=== PATIENT | female | born 1935 | race Caucasian/White ===

== ENCOUNTER 2016-11-24 20:58 | Observation (INO) | payer MEDICARE, BC ==
[~2016-11-24] VITALS: Ht 154.9 cm; Wt 107.0 kg
[2016-11-24 21:02] VITALS: BP 146/86; PULSE 108; RESP 16; TEMP 98.9; O2SAT 94
--- NOTE | 2016-11-24 21:23 | PD ---
HPI Chief Complaint: GI Complaint Time Seen by Provider: 21:09 Travel History International Travel<30 days: No Contact w/Intl Traveler<30days: No Traveled to known affect area: No History of Present Illness HPI The patient is an 81-year-old female that was sent from [facility] because of anemia for blood transfusion. Apparently, she had blood work which showed a hemoglobin of 8.7 on the 30th of last month. She has a long history of anemia and when she was in [place] she got iron shots as well as B-12 shots. Now she takes only oral B-12. She has not fainted but has been feeling weak for the past few weeks. She denies any melanotic or bloody stools. She denies any fever, nausea, vomiting, diarrhea or abdominal pain. [facility] Past Medical History Diabetes: Yes ?: Not Past Surgical History Hysterectomy: Yes Social History Tobacco Use: No Allergies-Medications (Allergen,Severity, Reaction): Coded Allergies: Lotrel (Verified Allergy, Unknown, SWELLING, 11/24/16) Reported Meds & Prescriptions Reported Meds & Active Scripts Active Reported Metoprolol Tartrate 25 Mg Tab 25 Mg PO DAILY Review of Systems Except as stated in HPI: all other systems reviewed are Neg Physical Exam Narrative GENERAL: The patient is alert, oriented 3 in no apparent distress. Her vital signs show heart rate of 108 with blood pressure 146/86. Oximetry is 94%. SKIN: Focused skin assessment warm/dry. HEAD: Atraumatic. Normocephalic. EYES: Pupils equal and round. No scleral icterus. No injection or drainage. ENT: No nasal bleeding or discharge. Mucous membranes pink and moist. NECK: Trachea midline. No JVD. CARDIOVASCULAR: Regular rate and rhythm. No murmur appreciated. RESPIRATORY: No accessory muscle use. Clear to auscultation. Breath sounds equal bilaterally. GASTROINTESTINAL: Abdomen soft, non-tender, nondistended. Hepatic and splenic margins not palpable. No guarding or rebound is present. MUSCULOSKELETAL: No obvious deformities. No clubbing. No cyanosis. No edema. NEUROLOGICAL: Awake and alert. No obvious cranial nerve deficits. Motor grossly within normal limits. Normal speech. PSYCHIATRIC: Appropriate mood and affect; insight and judgment normal. RECTAL EXAM: No masses or tenderness, only a tiny bit of stool was recovered from the rectum and it was trace guaiac positive. Data Data Last Documented VS Vital Signs Date Time Temp Pulse Resp B/P Pulse Ox O2 Delivery O2 Flow Rate FiO2 11/24/16 21:40 103 20 148/69 96 Room Air 11/24/16 21:02 98.9 Orders Complete Blood Count With Diff (11/24/16 21:18) Comprehensive Metabolic Panel (11/24/16 21:18) Type And Screen (11/24/16 21:18) Ecg Monitoring (11/24/16 21:18) Iv Access Insert/Monitor (11/24/16 21:18) Oximetry (11/24/16 21:18) Sodium Chloride 0.9% Flush (Ns Flush) (11/24/16 21:30) Red Blood Cells (Rbc) (11/24/16 22:09) Blood Product Administration .UPON TRANSFUSION (11/24/16 22:09) Sodium Chlor 0.9% 250 Ml Inj (Ns 250 Ml (11/24/16 22:15) Labs Laboratory Tests Test 11/24/16 21:30 White Blood Count 14.6 TH/MM3 Red Blood Count 2.32 MIL/MM3 Hemoglobin 6.2 GM/DL Hematocrit 19.2 % Mean Corpuscular Volume 82.9 FL Mean Corpuscular Hemoglobin 26.8 PG Mean Corpuscular Hemoglobin 32.4 % Concent Red Cell Distribution Width 17.1 % Platelet Count 476 TH/MM3 Mean Platelet Volume 7.6 FL Neutrophils (%) (Auto) 70.9 % Lymphocytes (%) (Auto) 12.8 % Monocytes (%) (Auto) 9.8 % Eosinophils (%) (Auto) 1.9 % Basophils (%) (Auto) 4.6 % Neutrophils # (Auto) 10.3 TH/MM3 Lymphocytes # (Auto) 1.9 TH/MM3 Monocytes # (Auto) 1.4 TH/MM3 Eosinophils # (Auto) 0.3 TH/MM3 Basophils # (Auto) 0.7 TH/MM3 CBC Comment DIFF FINAL Differential Comment Sodium Level 144 MEQ/L Potassium Level 4.6 MEQ/L Chloride Level 109 MEQ/L Carbon Dioxide Level 22.6 MEQ/L Anion Gap 12 MEQ/L Blood Urea Nitrogen 63 MG/DL Creatinine 2.00 MG/DL Estimat Glomerular Filtration 24 ML/MIN Rate Random Glucose 113 MG/DL Calcium Level 9.2 MG/DL Total Bilirubin 0.2 MG/DL Aspartate Amino Transf 31 U/L (AST/SGOT) Alanine Aminotransferase 22 U/L (ALT/SGPT) Alkaline Phosphatase 76 U/L Total Protein 7.0 GM/DL Albumin 3.0 GM/DL MDM Medical Decision Making Medical Screen Exam Complete: Yes Emergency Medical Condition: Yes Medical Record Reviewed: Yes Interpretation(s) The CBC shows a white count of 14,600 with a hemoglobin of 6.2 and hematocrit of 19.2. The platelet count is 476,000. The complete metabolic profile shows a BUN of 63, creatinine 2.0, GFR of 24 with albumin 3.0 but is otherwise unremarkable. Differential Diagnosis Anemia, iron deficiency anemia, acute blood loss, chronic anemia, B-12 deficiency Narrative Course The patient has anemia and needs a transfusion. We will give her 2 units of packed cells. The patient will be admitted to Dr. Patel for 23 hour observation. The blood indices do not give us a clue whether this is iron deficiency her B-12 deficiency. The rectal exam showed only trace guaiac positive on a tiny bit of stool that was in the rectum. She denies black or bloody stools. Impression: Chronic anemia Diagnosis Primary Impression: Anemia Admitting Information Admitting Physician Requests: Observation Francisco Ramirez MD Nov 24, 2016 21:22
[2016-11-24 21:30] VITALS: O2SAT 96
[2016-11-24] MEDS ORDERED: SODIUM CHLORIDE 0.9% FLUSH 10 ML FLUSH IVF PRN (21:30)
[2016-11-24 21:40] VITALS: BP 148/69; PULSE 103; RESP 20; O2SAT 96
[2016-11-24 21:47] LABS: AUTOMATED NEUTROPHIL # 10.3 TH/MM3 (1.8-7.7); BASOPHIL # 0.7 TH/MM3 (0-0.2); BASOPHIL % 4.6 % (0.0-2.0); EOSINOPHIL # 0.3 TH/MM3 (0-0.4); EOSINOPHIL % 1.9 % (0.0-4.0); LYMPH % 12.8 % (9.0-44.0); LYMPHOCYTE # 1.9 TH/MM3 (1.0-4.8); MEAN CELL VOLUME 82.9 FL (80.0-100.0); MEAN CORPUSCULAR HEMOGLOBIN 26.8 PG (27.0-34.0); MEAN CORPUSCULAR HGB CONC 32.4 % (32.0-36.0); MONO % 9.8 % (0.0-8.0); NEUT % 70.9 % (16.0-70.0); PLATELET COUNT 476 TH/MM3 (150-450); RED BLOOD COUNT 2.32 MIL/MM3 (4.00-5.30); RED CELL DISTRIBUTION WIDTH 17.1 % (11.6-17.2); WHITE BLOOD COUNT 14.6 TH/MM3 (4.0-11.0)
[2016-11-24 21:57] LABS: HEMO FLAGS DIFF FINAL
[2016-11-24] MEDS ORDERED: METO25TA3 PO (21:57)
[2016-11-24 22:00] LABS: CHLORIDE 109 MEQ/L (98-107); HEMATOCRIT 19.2 % (35.0-46.0); POTASSIUM 4.6 MEQ/L (3.5-5.1); SODIUM (NA) 144 MEQ/L (136-145)
[2016-11-24 22:04] LABS: ANION GAP 12 MEQ/L (5-15); BICARBONATE 22.6 MEQ/L (21.0-32.0); BLOOD UREA NITROGEN 63 MG/DL (7-18)
[2016-11-24 22:07] LABS: ALT (GPT) 22 U/L (10-53); AST (GOT) 31 U/L (15-37); GLOMERULAR FILTRATION RATE 24 ML/MIN (>89)
[2016-11-24 22:08] LABS: TOTAL BILIRUBIN ADULT 0.2 MG/DL (0.2-1.0)
[2016-11-24 22:10] VITALS: BP 165/72; PULSE 104; RESP 20; O2SAT 96
[2016-11-24 22:10] LABS: ALKALINE PHOSPHATASE 76 U/L (45-117)
[2016-11-24] MEDS ORDERED: SODIUM CHLOR 0.9% 250 ML INJ 250 ML IV ONE (22:15)
[2016-11-24] MEDS ORDERED: MORPHINE SULFATE 4 MG/ML INJ IV PRN (22:45)
[2016-11-24] MEDS ORDERED: SODIUM CHLORIDE 0.9% FLUSH 10 ML FLUSH IV FLUSH PRN (22:45)
[2016-11-24] MEDS ORDERED: LACTULOSE SYRUP 20 GM/30 ML CUP PO PRN (22:45)
[2016-11-24] MEDS ORDERED: MAGNESIUM HYDROXIDE SUSP 30 ML CUP PO PRN (22:45)
[2016-11-24] MEDS ORDERED: ONDANSETRON HCL 4 MG/2 ML VIAL IVP PRN (22:45)
[2016-11-24] MEDS ORDERED: SENNOSIDES 8.6 MG TAB PO PRN (22:45)
[2016-11-24] MEDS ORDERED: ACETAMINOPHEN 325 MG TAB PO PRN (22:45)
[2016-11-24] MEDS ORDERED: FUROSEMIDE 20 MG/2 ML VIAL IV PUSH PRN (22:45)
[2016-11-24] MEDS ORDERED: BISACODYL 10 MG SUPP RECTAL PRN (22:45)
[2016-11-24] MEDS ORDERED: ACETAMINOPHEN/HYDROcodone 325 MG/5 MG TAB PO PRN (22:45)
[2016-11-24] MEDS ORDERED: B-12100T PO (22:53)
[2016-11-24 23:10] VITALS: BP 173/80; PULSE 102; RESP 18; O2SAT 96
[2016-11-24 23:35] VITALS: BP 161/75
[2016-11-25] VITALS: BP 160/92; PULSE 105; RESP 20; TEMP 98; O2SAT 93
[2016-11-25 01:30] VITALS: BP 166/90; PULSE 108; RESP 22; TEMP 98.1; O2SAT 98
[2016-11-25 01:45] VITALS: BP 156/88; PULSE 101; RESP 20; TEMP 98; O2SAT 99
[2016-11-25 04:15] VITALS: BP 156/86; PULSE 98; RESP 20; TEMP 98.6; O2SAT 97
[2016-11-25 08:00] VITALS: BP 182/100; PULSE 99; RESP 18; TEMP 97; O2SAT 99
[2016-11-25] MEDS ORDERED: SODIUM CHLORIDE 0.9% FLUSH 10 ML FLUSH IV FLUSH SCH (09:00)
[2016-11-25] MEDS ORDERED: METOPROLOL TARTRATE 25 MG TAB PO SCH (09:00)
[2016-11-25] MEDS ORDERED: DOCUSATE SODIUM 50 MG/SENNA 8.6 MG TAB PO SCH (09:00)
[2016-11-25 09:29] LABS: AUTOMATED NEUTROPHIL # 10.6 TH/MM3 (1.8-7.7); BASOPHIL # 0.2 TH/MM3 (0-0.2); BASOPHIL % 1.3 % (0.0-2.0); EOSINOPHIL # 0.2 TH/MM3 (0-0.4); EOSINOPHIL % 1.7 % (0.0-4.0); HEMATOCRIT 25.1 % (35.0-46.0); LYMPH % 8.6 % (9.0-44.0); LYMPHOCYTE # 1.1 TH/MM3 (1.0-4.8); MEAN CELL VOLUME 86.6 FL (80.0-100.0); MEAN CORPUSCULAR HEMOGLOBIN 27.7 PG (27.0-34.0); MONO % 5.7 % (0.0-8.0); NEUT % 82.7 % (16.0-70.0); PLATELET COUNT 408 TH/MM3 (150-450); RED CELL DISTRIBUTION WIDTH 16.6 % (11.6-17.2); WHITE BLOOD COUNT 12.8 TH/MM3 (4.0-11.0)
[2016-11-25 09:30] LABS: HEMO FLAGS AUTO DIFF
[2016-11-25 10:08] LABS: CHLORIDE 108 MEQ/L (98-107); POTASSIUM 3.8 MEQ/L (3.5-5.1); SODIUM (NA) 146 MEQ/L (136-145)
[2016-11-25 10:10] LABS: ANION GAP 11 MEQ/L (5-15); BICARBONATE 27.2 MEQ/L (21.0-32.0); BLOOD UREA NITROGEN 55 MG/DL (7-18)
[2016-11-25 10:13] LABS: ALT (GPT) 18 U/L (10-53); AST (GOT) 16 U/L (15-37); GLOMERULAR FILTRATION RATE 27 ML/MIN (>89)
[2016-11-25 10:15] LABS: TOTAL BILIRUBIN ADULT 0.4 MG/DL (0.2-1.0)
[2016-11-25 10:16] LABS: ALKALINE PHOSPHATASE 64 U/L (45-117)
[2016-11-25 10:17] LABS: SCAN/DIFF AUTO DIFF CONFIRMED
--- NOTE | 2016-11-25 11:26 | HHI.HP ---
[facility] Jason Roberson MD Admission Diagnosis anemia Diagnoses: Chief Complaint: Fatigue Travel History International Travel<30 Days: No Contact w/Intl Traveler <30 Da: No Traveled to Known Affected Are: No History of Present Illness Patient is a 81-year-old female with a chronic history of anemia. For the last 30 years she's had recurrent anemia and over the last few years has required transfusion. The patient did come to the emergency room and advised her primary care doctor did an labs and the patient has hemoglobin of 6.2. After transfusion of 2 units. Hemoglobin is now 8.1. Patient feels better. Patient says she's had multiple colonoscopies and evaluations in [place] and was advised to have a capsule endoscopy but refused this. At this point patient would not like any further workup given the chronicity of her symptoms. She would like to pursue outpatient follow-up. This is discussed with the patient and the nursing team as well as the daughter at bedside. They are all agreeable and this is currently acceptable. Review of Systems Constitutional: COMPLAINS OF: Fatigue, DENIES: Diaphoretic episodes, Fever, Weight gain, Weight loss, Chills, Dizziness, Change in appetite, Night Sweats Endocrine: DENIES: Abnorml menstrual pattern, Heat/cold intolerance, Polydipsia , Polyuria, Polyphagia Eyes: DENIES: Blurred vision, Diplopia, Eye inflammation, Eye pain, Vision loss , Photosensitivity, Double Vision Ears, nose, mouth, throat: DENIES: Tinnitus, Hearing loss, Vertigo, Nasal discharge, Oral lesions, Throat pain, Hoarseness, Ear Pain, Running Nose, Epistaxis, Sinus Pain, Toothache, Odynophagia Respiratory: DENIES: Apneas, Cough, Snoring, Wheezing, Hemoptysis, Sputum production, Shortness of breath Cardiovascular: COMPLAINS OF: Dyspnea on Exertion, DENIES: Chest pain, Palpitations, Syncope, PND, Lower Extremity Edema, Orthopnea, Claudication Gastrointestinal: DENIES: Abdominal pain, Black stools, Bloody stools, Constipation, Diarrhea, Nausea, Vomiting, Difficulty Swallowing, Anorexia Genitourinary: DENIES: Abnormal vaginal bleeding, Dysmenorrhea, Dyspareunia, Sexual dysfunction, Urinary frequency, Urinary incontinence, Urgency, Hematuria , Dysuria, Nocturia, Vaginal discharge Musculoskeletal: DENIES: Joint pain, Muscle aches, Stiffness, Joint Swelling, Back pain, Neck pain Integumentary: DENIES: Abnormal pigmentation, Pruritus, Rash, Nail changes, Breast masses, Breast skin changes, Nipple discharge Hematologic/lymphatic: DENIES: Bruising, Lymphadenopathy Immunologic/allergic: DENIES: Eczema, Urticaria Neurologic: DENIES: Abnormal gait, Headache, Localized weakness, Paresthesias, Seizures, Speech Problems, Tremor, Poor Balance Psychiatric: DENIES: Anxiety, Confusion, Mood changes, Depression, Hallucinations, Agitation, Suicidal Ideation, Homicidal Ideation, Delusions Past Family Social History Past Medical History Hypertension Anemia, chronic Past Surgical History As directed Hip replacement 2 Tonsils Gallbladder Reported Medications Reviewed in the medical record, nothing new Allergies: Coded Allergies: Lotrel (Verified Allergy, Unknown, SWELLING, 11/24/16) Active Ordered Medications Reviewed in the medical record Family History Anemia Social History Lives in independent living and recently relocated this year from [place] Physical Exam Vital Signs Vital Signs Date Time Temp Pulse Resp B/P Pulse Ox O2 Delivery O2 Flow Rate FiO2 11/25/16 08:00 97.0 99 18 182/100 99 11/25/16 04:15 98.6 98 20 156/86 97 11/25/16 01:45 98.0 101 20 156/88 99 11/25/16 01:30 98.1 108 22 166/90 98 11/25/16 00:00 98.0 105 20 160/92 93 11/24/16 23:35 103 18 161/75 97 11/24/16 23:10 102 18 173/80 96 Room Air 11/24/16 22:10 104 20 165/72 96 Room Air 11/24/16 21:40 103 20 148/69 96 Room Air 11/24/16 21:30 96 Room Air 11/24/16 21:02 98.9 108 16 146/86 94 Physical Exam GENERAL: This is a well-nourished, well-developed patient, in no apparent distress. SKIN: No rashes, ecchymoses or lesions. Cool and dry. HEAD: Atraumatic. Normocephalic. No temporal or scalp tenderness. EYES: Pupils equal round and reactive. Extraocular motions intact. No scleral icterus. No injection or drainage. ENT: Nose without bleeding, purulent drainage or septal hematoma. Throat without erythema, tonsillar hypertrophy or exudate. Uvula midline. Airway patent. NECK: Trachea midline. No JVD or lymphadenopathy. Supple, nontender, no meningeal signs. CARDIOVASCULAR: Regular rate and rhythm without murmurs, gallops, or rubs. RESPIRATORY: Clear to auscultation. Breath sounds equal bilaterally. No wheezes , rales, or rhonchi. GASTROINTESTINAL: Abdomen soft, non-tender, nondistended. No hepato-splenomegaly , or palpable masses. No guarding. MUSCULOSKELETAL: Extremities without clubbing, cyanosis, or edema. No joint tenderness, effusion, or edema noted. No calf tenderness. Negative Homans sign bilaterally. NEUROLOGICAL: Awake and alert. Cranial nerves II through XII intact. Motor and sensory grossly within normal limits. Five out of 5 muscle strength in all muscle groups. Normal speech. Laboratory Laboratory Tests Test 11/24/16 11/24/16 11/24/16 11/25/16 21:30 22:05 22:09 09:10 White Blood Count 14.6 12.8 Red Blood Count 2.32 2.90 Hemoglobin 6.2 8.1 Hematocrit 19.2 25.1 Mean Corpuscular Volume 82.9 86.6 Mean Corpuscular Hemoglobin 26.8 27.7 Mean Corpuscular Hemoglobin 32.4 32.0 Concent Red Cell Distribution Width 17.1 16.6 Platelet Count 476 408 Mean Platelet Volume 7.6 7.4 Neutrophils (%) (Auto) 70.9 82.7 Lymphocytes (%) (Auto) 12.8 8.6 Monocytes (%) (Auto) 9.8 5.7 Eosinophils (%) (Auto) 1.9 1.7 Basophils (%) (Auto) 4.6 1.3 Neutrophils # (Auto) 10.3 10.6 Lymphocytes # (Auto) 1.9 1.1 Monocytes # (Auto) 1.4 0.7 Eosinophils # (Auto) 0.3 0.2 Basophils # (Auto) 0.7 0.2 CBC Comment DIFF FINAL AUTO DIFF Differential Comment AUTO DIFF CONFIRMED Sodium Level 144 146 Potassium Level 4.6 3.8 Chloride Level 109 108 Carbon Dioxide Level 22.6 27.2 Anion Gap 12 11 Blood Urea Nitrogen 63 55 Creatinine 2.00 1.80 Estimat Glomerular Filtration 24 27 Rate Random Glucose 113 174 Calcium Level 9.2 8.7 Total Bilirubin 0.2 0.4 Aspartate Amino Transf 31 16 (AST/SGOT) Alanine Aminotransferase 22 18 (ALT/SGPT) Alkaline Phosphatase 76 64 Total Protein 7.0 6.6 Albumin 3.0 2.9 Blood Type O POSITIVE O POSITIVE Antibody Screen NEGATIVE Blood Bank Comment Crossmatch Leukocyte-Reduced Red Blood Cells Result Diagram: 11/25/1690911/25/16909 Assessment and Plan Problem List: (1) Anemia ICD Code: D64.9 Status: Acute Plan: Patient has had anemia for over 30 years. Patient did have some somatic anemia which appears to be resolved after blood transfusion. Hemoglobin has gone from 6.2-8.1 after 2 units. Patient feels better and would like to go home to pursue outpatient follow-up as needed. This is agreeable given the chronicity of her anemia without any signs of acute bleeding at this time. Discharge plans discussed with patient, nursing staff and daughter Assessment and Plan Chronic anemia now stabilized Continue with outpatient follow up Discharge home Activity unrestricted Diet regular Mis Hood MD Nov 25, 2016 11:26
--- NOTE | 2016-11-25 11:29 | HHI.DCPOC ---
Discharge Care Plan Diagnosis: (1) Anemia Goals to Promote Your Health * To prevent worsening of your condition and complications * To maintain your health at the optimal level Directions to Meet Your Goals Take your medications as prescribed Follow your dietary instruction Follow activity as directed Keep your appointments as scheduled Take your immunizations and boosters as scheduled If your symptoms worsen call your PCP, if no PCP go to Urgent Care Center or Emergency Room Smoking is Dangerous to Your Health. Avoid second hand smoke Call the 24-hour hour crisis hotline for domestic abuse at Mis Hood MD Nov 25, 2016 11:29
== END 2016-11-25 12:46 | disposition home or self-care (01) ==
LOC: PHED 20:58 → PHEDA 22:35 → PH3B 23:38
PROVIDERS: ADMIT Hospitalist; ATTEND Hospitalist
DX: D64.9 Anemia, unspecified (principal); I10 Essential (primary) hypertension; E11.9 Type 2 diabetes mellitus without complications; Z79.84 Long term (current) use of oral hypoglycemic drugs; Z96.649 Presence of unspecified artificial hip joint
CPT/HCPCS: 36430; 80053; 85025; 86850; 86900; 86901; 86920; 99285; G0378; J1940; J7050; P9016

== ENCOUNTER 2016-12-02 15:00 | Emergency (ER) | payer MEDICARE, BC ==
[~2016-12-02 15:00] MED LIST: B-12100T PO; METO25TA3 PO
[2016-12-02 15:12] VITALS: BP 134/87; PULSE 93; RESP 16; TEMP 98.2; O2SAT 93
[2016-12-02] MEDS ORDERED: SODIUM CHLOR 0.9% 250 ML INJ 250 ML IV ONE (16:30)
[2016-12-02 16:52] LABS: POTASSIUM 4.4 MEQ/L (3.5-5.1)
[2016-12-02 16:55] LABS: BICARBONATE 26.1 MEQ/L (21.0-32.0)
[2016-12-02 17:07] LABS: AUTOMATED NEUTROPHIL # 11.6 TH/MM3 (1.8-7.7); BASOPHIL # 0.3 TH/MM3 (0-0.2); BASOPHIL % 2.1 % (0.0-2.0); EOSINOPHIL # 0.4 TH/MM3 (0-0.4); EOSINOPHIL % 2.8 % (0.0-4.0); HEMATOCRIT 27.2 % (35.0-46.0); LYMPH % 7.9 % (9.0-44.0); LYMPHOCYTE # 1.1 TH/MM3 (1.0-4.8); MEAN CELL VOLUME 84.9 FL (80.0-100.0); MEAN CORPUSCULAR HEMOGLOBIN 26.4 PG (27.0-34.0); MEAN CORPUSCULAR HGB CONC 31.1 % (32.0-36.0); MONO % 7.7 % (0.0-8.0); NEUT % 79.5 % (16.0-70.0); PLATELET COUNT 440 TH/MM3 (150-450); RED BLOOD COUNT 3.21 MIL/MM3 (4.00-5.30); WHITE BLOOD COUNT 14.5 TH/MM3 (4.0-11.0)
[2016-12-02 17:08] LABS: HEMO FLAGS DIFF FINAL
[2016-12-02 17:17] VITALS: BP 155/87; PULSE 95; RESP 20; O2SAT 96
[2016-12-02 17:38] LABS: BLOOD, URINE TRACE (NEG); GLUCOSE,URINE NEG (NEG); KETONE, URINE NEG (NEG); NITRITE,URINE NEG (NEG)
--- NOTE | 2016-12-02 17:42 | PD ---
HPI Chief Complaint: Abnormal Results Time Seen by Provider: 16:22 Travel History International Travel<30 days: No Contact w/Intl Traveler<30days: No Traveled to known affect area: No History of Present Illness HPI 81-year-old female presents with abnormal outpatient lab of 7 and needing transfusion. Patient states that she's been more tired than usual but denies any other concurrent complaints. She was just in the hospital couple days ago and received 2 units of blood transfusion. She denies any active bleeding or other concurrent complaints. Quality low. Severity is [address] Roberson is her physician where she is residing. PFSH Past Medical History Anemia: Yes Arthritis: Yes (Osteoarthritis) Asthma: No Heart Rhythm Problems: No Cardiovascular Problems: Yes High Cholesterol: No Chest Pain: No Congestive Heart Failure: No (PT DENIES) COPD: No Diabetes: Yes (Borderline) Patient Takes Glucophage: No Diminished Hearing: No Genitourinary: No Hiatal Hernia: Yes Hypertension: Yes Musculoskeletal: Yes (BILAT. HIP REPLACEMENTS) Neurologic: No Reproductive: No Respiratory: Yes Sleep Apnea: Yes (PT STATES SHE SOMETIMES USES CPAP AT NIGHT) ?: Not Past Surgical History Appendectomy: Yes Cholecystectomy: Yes Gynecologic Surgery: Yes (Lumpectomy - unsure of which breast ) Hysterectomy: Yes Joint Replacement: Yes (BILATERAL HIPS) Other Surgery: Yes Social History Alcohol Use: No Tobacco Use: No Substance Use: No Allergies-Medications (Allergen,Severity, Reaction): Coded Allergies: Lotrel (Verified Allergy, Unknown, SWELLING, 12/02/16) Reported Meds & Prescriptions Reported Meds & Active Scripts Active Keflex (Cephalexin) 500 Mg Cap 500 Mg PO Q12H 10 Days Reported B-12 (Cyanocobalamin) 100 Mcg Tab 100 Mcg PO DAILY Metoprolol Tartrate 25 Mg Tab 25 Mg PO DAILY Review of Systems Except as stated in HPI: all other systems reviewed are Neg Physical Exam Narrative GENERAL: Well-nourished, well-developed patient. SKIN: Warm and dry. HEAD: Normocephalic and atraumatic. EYES: No injection or drainage. ENT: No nasal drainage noted. NECK: Supple, trachea midline. CARDIOVASCULAR: Regular rate and rhythm RESPIRATORY: Breath sounds equal bilaterally at apices. No accessory muscle use. GASTROINTESTINAL: Abdomen soft, non-tender, nondistended. NEUROLOGICAL: Awake and alert. Moves extremities. Normal speech. Data Data Last Documented VS Vital Signs Date Time Temp Pulse Resp B/P Pulse Ox O2 Delivery O2 Flow Rate FiO2 12/02/16 19:30 95 Room Air 12/02/16 19:30 98.6 97 16 125/87 Orders Sodium Chlor 0.9% 250 Ml Inj (Ns 250 Ml (12/02/16 16:30) Complete Blood Count With Diff (12/02/16 16:26) Basic Metabolic Panel (Bmp) (12/02/16 16:26) Iv Access Insert/Monitor (12/02/16 16:26) Type And Screen (12/02/16 16:26) Urinalysis - C+S If Indicated (12/02/16 17:15) Cath For Specimen (12/02/16 17:42) Urine Culture (12/02/16 17:30) Ceftriaxone Inj (Rocephin Inj) (12/02/16 18:30) Labs Laboratory Tests Test 12/02/16 12/02/16 16:35 17:30 White Blood Count 14.5 TH/MM3 Red Blood Count 3.21 MIL/MM3 Hemoglobin 8.5 GM/DL Hematocrit 27.2 % Mean Corpuscular Volume 84.9 FL Mean Corpuscular Hemoglobin 26.4 PG Mean Corpuscular Hemoglobin 31.1 % Concent Red Cell Distribution Width 17.0 % Platelet Count 440 TH/MM3 Mean Platelet Volume 7.5 FL Neutrophils (%) (Auto) 79.5 % Lymphocytes (%) (Auto) 7.9 % Monocytes (%) (Auto) 7.7 % Eosinophils (%) (Auto) 2.8 % Basophils (%) (Auto) 2.1 % Neutrophils # (Auto) 11.6 TH/MM3 Lymphocytes # (Auto) 1.1 TH/MM3 Monocytes # (Auto) 1.1 TH/MM3 Eosinophils # (Auto) 0.4 TH/MM3 Basophils # (Auto) 0.3 TH/MM3 CBC Comment DIFF FINAL Differential Comment Sodium Level 143 MEQ/L Potassium Level 4.4 MEQ/L Chloride Level 109 MEQ/L Carbon Dioxide Level 26.1 MEQ/L Anion Gap 8 MEQ/L Blood Urea Nitrogen 54 MG/DL Creatinine 1.90 MG/DL Estimat Glomerular Filtration 25 ML/MIN Rate Random Glucose 93 MG/DL Calcium Level 9.3 MG/DL Blood Type O POSITIVE Antibody Screen NEGATIVE Crossmatch Leukocyte-Reduced Red Blood Cells Blood Bank Comment Urine Color YELLOW Urine Turbidity CLEAR Urine pH 6.0 Urine Specific [place] 1.011 Urine Protein 100 mg/dL Urine Glucose (UA) NEG mg/dL Urine Ketones NEG mg/dL Urine Occult Blood TRACE Urine Nitrite NEG Urine Bilirubin NEG Urine Leukocyte Esterase SMALL Urine RBC 0-3 /hpf Urine WBC 15-19 /hpf Urine WBC Clumps FEW Urine Squamous Epithelial 0-5 /hpf Cells Microscopic Urinalysis Comment CATH-CULTURE IND MDM Medical Decision Making Medical Screen Exam Complete: Yes Emergency Medical Condition: Yes Medical Record Reviewed: Yes (past history confirmed) Interpretation(s) CBC & BMP Diagram 12/02/16 16:35 Differential Diagnosis Anemia, renal failure, UTI Narrative Course Will check blood work and reevaluate Will add on urinalysis given no significant anemia and mild leukocytosis, renal function is at baseline UA shows signs of infection. Patient offered hospitalization but preferring to go. Patient resting comfortably in room and playing cards with her family. Vitals stable. Afebrile here. Will dose with Rocephin and sent out on Keflex. Patient is in agreement to plan Diagnosis Primary Impression: UTI (urinary tract infection) Qualified Code: N39.0 - Urinary tract infection without hematuria, site unspecified Patient Instructions: General Instructions Additional Instructions: return with any fever, vomiting or other emergent findings, follow with primary tomorrow Med/Other Pt SpecificInfo: Prescription(s) given Scripts Cephalexin (Keflex)500 Mg [id number] Mg PO Q12H 10 Days Ref 0 Prov:Leila Chanel MD 12/02/16 Disposition: 03 DISCHARGE TO SNF Condition: Stable Leila Chanel MD Dec 02, 2016 17:42
[2016-12-02 17:58] LABS: RBC, URINE 0-3 /hpf (0-3); SQUAMOUS EPITHELIAL CELL URINE 0-5 /hpf (0-5); URINE COLOR YELLOW (YELLW/STRAW); WBC, URINE 15-19 /hpf (0-5)
[2016-12-02 17:59] LABS: COMMENT (UR) CATH-CULTURE IND; CULTURE IF INDICATED CATH CULTURE IND
[2016-12-02] MEDS ORDERED: CEPH-460 PO (18:29)
[2016-12-02] MEDS ORDERED: cefTRIAXone INJ 1,000 MG in SODIUM CHLORIDE 0.9% INJ 100 ML IV ONE (18:30)
[2016-12-02 19:30] VITALS: BP 125/87; PULSE 97; RESP 16; TEMP 98.6; O2SAT 95
== END 2016-12-02 19:54 ==
LOC: PHED 15:00
DX: N39.0 Urinary tract infection, site not specified (principal); B95.61 Methicillin susceptible Staphylococcus aureus infection as the cause of diseases classified elsewhere; I10 Essential (primary) hypertension
CPT/HCPCS: 80048; 81001; 85025; 86403; 86850; 86900; 86901; 87086; 87186; 96365; 99284; J0696; P9612

== ENCOUNTER 2016-12-19 17:02 | Inpatient (IN) | payer MEDICARE, BC ==
[2016-12-19] VITALS (10 sets, daily range): BP systolic 147–170; BP diastolic 67–89; PULSE 92–105; RESP 16–20; TEMP 97.9–99.1; O2SAT 96–98
[~2016-12-19] VITALS: Ht 154.9 cm; Wt 109.0 kg
[~2016-12-19 17:02] MED LIST changes: +CEPH-460 PO
[2016-12-19] MEDS ORDERED: diphenhydrAMINE HCL 25 MG CAP PO PRN (18:00)
[2016-12-19] MEDS ORDERED: SODIUM CHLORIDE 0.9% FLUSH 10 ML FLUSH IV FLUSH PRN ×2 (18:00→19:00)
[2016-12-19] MEDS ORDERED: ACETAMINOPHEN 325 MG TAB PO ONE (18:00)
[2016-12-19] MEDS ORDERED: SODIUM CHLOR 0.9% 250 ML INJ 250 ML IV ONE (18:00)
[2016-12-19] MEDS ORDERED: diphenhydrAMINE HCL 50 MG/ML VIAL IV ONE (18:00)
--- NOTE | 2016-12-19 18:03 | PD ---
HPI Chief Complaint: Abnormal Results Time Seen by Provider: 18:00 (Vitaly Fortune) Time Seen by Provider: 17:33 (Elham Mortensen DO) Travel History International Travel<30 days: No Contact w/Intl Traveler<30days: No Traveled to known affect area: No (Vitaly Fortune) History of Present Illness HPI 81-year-old female with history of recurrent anemia requiring transfusion presents emergency Department with recurrent low hemoglobin of 6.2. She denies pain, fever, but is short winded with exertion. Patient was also recently treated for UTI and she is concerned about urinary urgency although she denies pain with urination or abdominal discomfort. The patient's history of iron deficient anemia and is currently being set up to see Dr. Mckeon for follow-up. She has no other acute complaints at this time. She is allergic to Lotrel. (Vitaly Fortune) PFSH Past Medical History Anemia: Yes Arthritis: Yes (Osteoarthritis) Asthma: No Heart Rhythm Problems: No Cardiovascular Problems: Yes High Cholesterol: No Chest Pain: No Congestive Heart Failure: No (PT DENIES) COPD: No Diabetes: Yes (Borderline) Patient Takes Glucophage: No Diminished Hearing: No Gastrointestinal Disorders: No Genitourinary: No Hiatal Hernia: Yes Hypertension: Yes Musculoskeletal: Yes (BILAT. HIP REPLACEMENTS) Neurologic: No Reproductive: No Respiratory: Yes Sleep Apnea: Yes (PT STATES SHE SOMETIMES USES CPAP AT NIGHT) (Vitaly Fortune) Past Surgical History Appendectomy: Yes Cholecystectomy: Yes Gynecologic Surgery: Yes (Lumpectomy - unsure of which breast ) Hysterectomy: Yes Joint Replacement: Yes (BILATERAL HIPS) Other Surgery: Yes (Vitaly Fortune) Social History Alcohol Use: No Tobacco Use: No Substance Use: No (Vitaly Fortune) Allergies-Medications (Allergen,Severity, Reaction): Coded Allergies: Lotrel (Verified Allergy, Unknown, SWELLING, 12/19/16) Reported Meds & Prescriptions Reported Meds & Active Scripts Active Reported B-12 (Cyanocobalamin) 100 Mcg Tab 100 Mcg PO DAILY Metoprolol Tartrate 25 Mg Tab 25 Mg PO DAILY (Elham Mortensen DO) Review of Systems Except as stated in HPI: all other systems reviewed are Neg General / Constitutional: No: Fever Eyes: No: Visual changes HENT: No: Headaches Cardiovascular: Positive: Dyspnea on exertion, No: Chest Pain or Discomfort, Palpitations, Irregular Rhythm, Tachycardia Respiratory: No: Shortness of Breath Gastrointestinal: No: Abdominal Pain Genitourinary: No: Dysuria Musculoskeletal: No: Pain Skin: No Rash Neurologic: No: Weakness Psychiatric: No: Depression Endocrine: No: Polydipsia Hematologic/Lymphatic: No: Easy Bruising (Vitaly Fortune) Physical Exam Narrative GENERAL: Patient appears in no acute distress. She is alert and oriented 3. SKIN: Warm and dry. Mild to moderate pallor. Normal turgor. Patient has area of erythema, induration, and warmth to the left lower anterior aponte region. HEAD: Atraumatic. Normocephalic. EYES: Pupils equal and round. No scleral icterus. No injection or drainage. ENT: No nasal bleeding or discharge. Mucous membranes pink and moist. Pharynx is clear. Airway is patent. NECK: Trachea midline. Supple and nontender. CARDIOVASCULAR: Regular rate and rhythm. No murmurs gallops or rubs at this time. RESPIRATORY: No accessory muscle use. Clear to auscultation. Breath sounds equal bilaterally. GASTROINTESTINAL: Abdomen soft, non-tender, nondistended. Hepatic and splenic margins not palpable. MUSCULOSKELETAL: Extremities without clubbing, cyanosis, patient has bilateral greater than 2+ nonpitting edema. No obvious deformities. NEUROLOGICAL: Awake and alert. No obvious cranial nerve deficits. Motor grossly within normal limits. Five out of 5 muscle strength in the arms and legs. Normal speech. PSYCHIATRIC: Appropriate mood and affect; insight and judgment normal. (Vitaly Fortune) Data Data Last Documented VS Vital Signs Date Time Temp Pulse Resp B/P Pulse Ox O2 Delivery O2 Flow Rate FiO2 12/19/16 18:00 98 12/19/16 17:04 99.1 105 18 156/74 Room Air (Elham Mortensen DO) Orders Complete Blood Count With Diff (12/19/16 17:09) Comprehensive Metabolic Panel (12/19/16 17:09) Type And Screen (12/19/16 17:11) Red Blood Cells (Rbc) (12/19/16 17:52) Blood Product Administration .UPON TRANSFUSION (12/19/16 17:52) Sodium Chlor 0.9% 250 Ml Inj (Ns 250 Ml (12/19/16 18:00) Diphenhydramine Inj (Benadryl Inj) (12/19/16 18:00) Diphenhydramine (Benadryl) (12/19/16 18:00) Acetaminophen (Tylenol) (12/19/16 18:00) Acetaminophen (Tylenol) (12/19/16 18:00) Urinalysis - C+S If Indicated (12/19/16 17:52) Iv Access Insert/Monitor (12/19/16 17:52) Ecg Monitoring (12/19/16 17:52) Oximetry (12/19/16 17:52) Sodium Chloride 0.9% Flush (Ns Flush) (12/19/16 18:00) Admit Order (Ed Use Only) (12/19/16 18:58) (Elham Mortensen DO) Labs Laboratory Tests Test 12/19/16 12/19/16 12/19/16 12/19/16 17:24 17:45 18:05 18:32 White Blood Count 13.5 TH/MM3 Red Blood Count 2.53 MIL/MM3 Hemoglobin 6.9 GM/DL Hematocrit 21.3 % Mean Corpuscular Volume 84.1 FL Mean Corpuscular Hemoglobin 27.2 PG Mean Corpuscular Hemoglobin 32.4 % Concent Red Cell Distribution Width 17.4 % Platelet Count 471 TH/MM3 Mean Platelet Volume 7.6 FL Neutrophils (%) (Auto) 77.4 % Lymphocytes (%) (Auto) 10.0 % Monocytes (%) (Auto) 8.4 % Eosinophils (%) (Auto) 3.0 % Basophils (%) (Auto) 1.2 % Neutrophils # (Auto) 10.4 TH/MM3 Lymphocytes # (Auto) 1.3 TH/MM3 Monocytes # (Auto) 1.1 TH/MM3 Eosinophils # (Auto) 0.4 TH/MM3 Basophils # (Auto) 0.2 TH/MM3 CBC Comment DIFF FINAL Differential Comment Sodium Level 142 MEQ/L Potassium Level 4.4 MEQ/L Chloride Level 109 MEQ/L Carbon Dioxide Level 24.1 MEQ/L Anion Gap 9 MEQ/L Blood Urea Nitrogen 59 MG/DL Creatinine 1.75 MG/DL Estimat Glomerular Filtration 28 ML/MIN Rate Random Glucose 89 MG/DL Calcium Level 9.2 MG/DL Total Bilirubin 0.2 MG/DL Aspartate Amino Transf 15 U/L (AST/SGOT) Alanine Aminotransferase 14 U/L (ALT/SGPT) Alkaline Phosphatase 83 U/L Total Protein 6.9 GM/DL Albumin 3.1 GM/DL Blood Type O POSITIVE Antibody Screen NEGATIVE Urine Color LIGHT-YELLOW Urine Turbidity HAZY Urine pH 5.5 Urine Specific [place] 1.015 Urine Protein 30 mg/dL Urine Glucose (UA) NEG mg/dL Urine Ketones NEG mg/dL Urine Occult Blood NEG Urine Nitrite NEG Urine Bilirubin NEG Urine Urobilinogen LESS THAN 2.0 MG/DL Urine Leukocyte Esterase LARGE Urine WBC 112 /hpf Urine WBC Clumps OCC Urine Squamous Epithelial 3 /hpf Cells Microscopic Urinalysis Comment CULTURE INDICATED Crossmatch Leukocyte-Reduced Red Blood Cells Blood Bank Comment (Elham Mortensen DO) [facility] Medical Decision Making Medical Screen Exam Complete: Yes Emergency Medical Condition: Yes Medical Record Reviewed: Yes Differential Diagnosis Symptomatic anemia. History of chronic anemia. Need for transfusion. Narrative Course Patient is medically stable at time of exam. Labs ordered including CBC, CMP, PT PTT and INR, urinalysis. IV access is obtained, and 2 units of blood is typed and screened for transfusion. Patient will be admitted to observation for symptomatic anemia. CBC shows hemoglobin of 6.9. Patient is guaiac positive. Urinalysis is suggestive of urinary tract infection. 1845 hrs. call was placed to the hospitalist for admission to observation. 1900 hrs. patient was discussed with Dr. Patel, by Dr. Mortensen, for admission to observation. (Vitaly Fortune) Diagnosis Primary Impression: Anemia Qualified Code: D64.9 - Anemia, unspecified type Additional Impression: UTI (urinary tract infection) Qualified Code: N30.00 - Acute cystitis without hematuria Admitting Information Admitting Physician Requests: Observation (Vitaly Fortune) Condition: Stable Vitaly Fortune Dec 19, 2016 18:03 Elham Mortensen DO Dec 20, 2016 12:33
[2016-12-19 18:21] LABS: AUTOMATED NEUTROPHIL # 10.4 TH/MM3 (1.8-7.7); BASOPHIL # 0.2 TH/MM3 (0-0.2); BASOPHIL % 1.2 % (0.0-2.0); EOSINOPHIL # 0.4 TH/MM3 (0-0.4); HEMATOCRIT 21.3 % (35.0-46.0); LYMPHOCYTE # 1.3 TH/MM3 (1.0-4.8); MEAN CELL VOLUME 84.1 FL (80.0-100.0); MEAN CORPUSCULAR HEMOGLOBIN 27.2 PG (27.0-34.0); MEAN CORPUSCULAR HGB CONC 32.4 % (32.0-36.0); MONO % 8.4 % (0.0-8.0); NEUT % 77.4 % (16.0-70.0); PLATELET COUNT 471 TH/MM3 (150-450); RED BLOOD COUNT 2.53 MIL/MM3 (4.00-5.30); RED CELL DISTRIBUTION WIDTH 17.4 % (11.6-17.2); WHITE BLOOD COUNT 13.5 TH/MM3 (4.0-11.0)
[2016-12-19 18:32] LABS: HEMO FLAGS DIFF FINAL
[2016-12-19 18:36] LABS: ALT (GPT) 14 U/L (10-53); ANION GAP 9 MEQ/L (5-15); AST (GOT) 15 U/L (15-37); BICARBONATE 24.1 MEQ/L (21.0-32.0); BLOOD UREA NITROGEN 59 MG/DL (7-18); CHLORIDE 109 MEQ/L (98-107); GLOMERULAR FILTRATION RATE 28 ML/MIN (>89); POTASSIUM 4.4 MEQ/L (3.5-5.1); SODIUM (NA) 142 MEQ/L (136-145)
[2016-12-19 18:38] LABS: ALKALINE PHOSPHATASE 83 U/L (45-117); TOTAL BILIRUBIN ADULT 0.2 MG/DL (0.2-1.0)
[2016-12-19] MEDS ORDERED: ACETAMINOPHEN/HYDROcodone 325 MG/5 MG TAB PO PRN (19:00)
[2016-12-19] MEDS ORDERED: SENNOSIDES 8.6 MG TAB PO PRN (19:00)
[2016-12-19] MEDS ORDERED: BISACODYL 10 MG SUPP RECTAL PRN (19:00)
[2016-12-19] MEDS ORDERED: ONDANSETRON HCL 4 MG/2 ML VIAL IVP PRN (19:00)
[2016-12-19] MEDS ORDERED: LACTULOSE SYRUP 20 GM/30 ML CUP PO PRN (19:00)
[2016-12-19] MEDS ORDERED: MAGNESIUM HYDROXIDE SUSP 30 ML CUP PO PRN (19:00)
[2016-12-19] MEDS ORDERED: ACETAMINOPHEN 325 MG TAB PO PRN (19:00)
[2016-12-19] MEDS ORDERED: ACETAMINOPHEN/HYDROcodone 325 MG/10 MG TAB PO PRN (19:00)
[2016-12-19 19:04] LABS: BLOOD, URINE NEG (NEG); COMMENT (UR) CULTURE INDICATED; CULTURE IF INDICATED CULTURE INDICATED; GLUCOSE,URINE NEG (NEG); KETONE, URINE NEG (NEG); NITRITE,URINE NEG (NEG); PH, URINE 5.5 (5.0-8.5); SQUAMOUS EPITHELIAL CELL URINE 3 /hpf (0-5); URINE COLOR LIGHT-YELLOW (YELLW/STRAW)
--- NOTE | 2016-12-19 19:10 | HHI.HP ---
[facility] Jason Roberson MD Admission Diagnosis Symptomatic anemia Diagnoses: Travel History International Travel<30 Days: No Contact w/Intl Traveler <30 Da: No Traveled to Known Affected Are: No Past Family Social History Allergies: Coded Allergies: Lotrel (Verified Allergy, Unknown, SWELLING, 12/19/16) Physical Exam Vital Signs Vital Signs Date Time Temp Pulse Resp B/P Pulse Ox O2 Delivery O2 Flow Rate FiO2 12/19/16 18:00 98 12/19/16 17:04 99.1 105 18 156/74 96 Room Air Physical Exam GENERAL: This is a well-nourished, well-developed patient, in no apparent distress. SKIN: No rashes, ecchymoses or lesions. Cool and dry. HEAD: Atraumatic. Normocephalic. No temporal or scalp tenderness. EYES: Pupils equal round and reactive. Extraocular motions intact. No scleral icterus. No injection or drainage. ENT: Nose without bleeding, purulent drainage or septal hematoma. Throat without erythema, tonsillar hypertrophy or exudate. Uvula midline. Airway patent. NECK: Trachea midline. No JVD or lymphadenopathy. Supple, nontender, no meningeal signs. CARDIOVASCULAR: Regular rate and rhythm without murmurs, gallops, or rubs. RESPIRATORY: Clear to auscultation. Breath sounds equal bilaterally. No wheezes , rales, or rhonchi. GASTROINTESTINAL: Abdomen soft, non-tender, nondistended. No hepato-splenomegaly , or palpable masses. No guarding. MUSCULOSKELETAL: Extremities without clubbing, cyanosis, or edema. No joint tenderness, effusion, or edema noted. No calf tenderness. Negative Homans sign bilaterally. NEUROLOGICAL: Awake and alert. Cranial nerves II through XII intact. Motor and sensory grossly within normal limits. Five out of 5 muscle strength in all muscle groups. Normal speech. Laboratory Laboratory Tests Test 12/19/16 12/19/16 12/19/16 12/19/16 17:24 17:45 18:05 18:32 White Blood Count 13.5 Red Blood Count 2.53 Hemoglobin 6.9 Hematocrit 21.3 Mean Corpuscular Volume 84.1 Mean Corpuscular Hemoglobin 27.2 Mean Corpuscular Hemoglobin 32.4 Concent Red Cell Distribution Width 17.4 Platelet Count 471 Mean Platelet Volume 7.6 Neutrophils (%) (Auto) 77.4 Lymphocytes (%) (Auto) 10.0 Monocytes (%) (Auto) 8.4 Eosinophils (%) (Auto) 3.0 Basophils (%) (Auto) 1.2 Neutrophils # (Auto) 10.4 Lymphocytes # (Auto) 1.3 Monocytes # (Auto) 1.1 Eosinophils # (Auto) 0.4 Basophils # (Auto) 0.2 CBC Comment DIFF FINAL Differential Comment Sodium Level 142 Potassium Level 4.4 Chloride Level 109 Carbon Dioxide Level 24.1 Anion Gap 9 Blood Urea Nitrogen 59 Creatinine 1.75 Estimat Glomerular Filtration 28 Rate Random Glucose 89 Calcium Level 9.2 Total Bilirubin 0.2 Aspartate Amino Transf 15 (AST/SGOT) Alanine Aminotransferase 14 (ALT/SGPT) Alkaline Phosphatase 83 Total Protein 6.9 Albumin 3.1 Blood Type O POSITIVE Antibody Screen NEGATIVE Urine Color LIGHT-YELLOW Urine Turbidity HAZY Urine pH 5.5 Urine Specific [place] 1.015 Urine Protein 30 Urine Glucose (UA) NEG Urine Ketones NEG Urine Occult Blood NEG Urine Nitrite NEG Urine Bilirubin NEG Urine Urobilinogen LESS THAN 2.0 Urine Leukocyte Esterase LARGE Urine WBC 112 Urine WBC Clumps OCC Urine Squamous Epithelial 3 Cells Microscopic Urinalysis Comment CULTURE INDICATED Crossmatch Leukocyte-Reduced Red Blood Cells Blood Bank Comment Date/Time Procedure Status Source Growth 12/19/16 18:05 Urine Culture Received Urine Clean Catch Pending Result Diagram: 12/19/16 1724 12/19/16 1724 Carol Patel MD Dec 19, 2016 19:09
--- NOTE | 2016-12-19 19:24 | HHI.HP ---
[facility] Jason Roberson MD Admission Diagnosis Symptomatic anemia Diagnoses: (1) GI bleed Diagnosis: Principal (2) Anemia Diagnosis: Principal (3) UTI (urinary tract infection) Diagnosis: Principal (4) Cellulitis Diagnosis: Principal (5) Renal insufficiency Diagnosis: Principal (6) HTN (hypertension) Diagnosis: Principal Travel History International Travel<30 Days: No Contact w/Intl Traveler <30 Da: No Traveled to Known Affected Are: No History of Present Illness An 81-year-old female with PMH of HTN, Arthritis and Chronic Anemia who was sent to the ER by PCP secondary to outpatient Hemoglobin of 6.2. Patient without complaints at this time. Previous admit for similar circumstance 11/25/16 , Hgb 6.2 at that time, s/p 2u pRBC w/ repeat Hgb 8.5, d/c'd home w/ instructions to follow up w/ PCP and Hematology, however has not had Hematology follow up. Hgb currently 6.9. 2u pRBC ordered in ER, currently pending transfusion. +Hemoccult on exam, not on anticoagulation. BP 156/74, HR 105, O2 sat 96% RA, Temp 99.1. WBC 13.5. He William 6.9. Platelets 471. Chemistry unremarkable except for creatinine 1.75, previously 1.90 on 12/02/16. UA positive for UTI. Seen in ER on 12/02/16, found to have UTI, s/p Keflex 500mg po q12h, completed treatment. Review of Systems Except as stated in HPI: all other systems reviewed are Neg ROS: 14 point review of systems otherwise negative. Past Family Social History Past Medical History PMH: HTN, Arthritis and Chronic Anemia Past Surgical History PAST SURGICAL HISTORY: Appendectomy, Cholecystectomy, Lumpectomy, Bilateral Hip Replacement Allergies: Coded Allergies: Lotrel (Verified Allergy, Unknown, SWELLING, 12/19/16) Family History PAST FAMILY HISTORY: Reviewed. No h/o DM or CAD Social History PAST SOCIAL HISTORY: Negative for alcohol, tobacco or drugs. Physical Exam Vital Signs Vital Signs Date Time Temp Pulse Resp B/P Pulse Ox O2 Delivery O2 Flow Rate FiO2 12/19/16 18:00 98 12/19/16 17:04 99.1 105 18 156/74 96 Room Air Physical Exam PE: GENERAL: Pleasant elderly white female in no acute distress. HEENT: PERRLA, EOMI. No scleral icterus or conjunctival pallor. No lid lag or facial droop. CARDIOVASCULAR: Regular rate and rhythm. No obvious murmurs to auscultation. No chest tenderness to palpation. RESPIRATORY: No obvious rhonchi or wheezing. Clear to auscultation. Breath sounds equal bilaterally. GASTROINTESTINAL: Abdomen soft, non-tender, nondistended. BS normal. MUSCULOSKELETAL: Extremities without clubbing, cyanosis, or edema. No obvious deformities. Lower extremity venous stasis, mild surrounding erythema LLE NEUROLOGICAL: Awake, alert and oriented x4. No focal neurologic deficits. Moving both upper and lower extremities spontaneously. Laboratory Laboratory Tests Test 12/19/16 12/19/16 12/19/16 12/19/16 17:24 17:45 18:05 18:32 White Blood Count 13.5 Red Blood Count 2.53 Hemoglobin 6.9 Hematocrit 21.3 Mean Corpuscular Volume 84.1 Mean Corpuscular Hemoglobin 27.2 Mean Corpuscular Hemoglobin 32.4 Concent Red Cell Distribution Width 17.4 Platelet Count 471 Mean Platelet Volume 7.6 Neutrophils (%) (Auto) 77.4 Lymphocytes (%) (Auto) 10.0 Monocytes (%) (Auto) 8.4 Eosinophils (%) (Auto) 3.0 Basophils (%) (Auto) 1.2 Neutrophils # (Auto) 10.4 Lymphocytes # (Auto) 1.3 Monocytes # (Auto) 1.1 Eosinophils # (Auto) 0.4 Basophils # (Auto) 0.2 CBC Comment DIFF FINAL Differential Comment Sodium Level 142 Potassium Level 4.4 Chloride Level 109 Carbon Dioxide Level 24.1 Anion Gap 9 Blood Urea Nitrogen 59 Creatinine 1.75 Estimat Glomerular Filtration 28 Rate Random Glucose 89 Calcium Level 9.2 Total Bilirubin 0.2 Aspartate Amino Transf 15 (AST/SGOT) Alanine Aminotransferase 14 (ALT/SGPT) Alkaline Phosphatase 83 Total Protein 6.9 Albumin 3.1 Blood Type O POSITIVE Antibody Screen NEGATIVE Urine Color LIGHT-YELLOW Urine Turbidity HAZY Urine pH 5.5 Urine Specific [place] 1.015 Urine Protein 30 Urine Glucose (UA) NEG Urine Ketones NEG Urine Occult Blood NEG Urine Nitrite NEG Urine Bilirubin NEG Urine Urobilinogen LESS THAN 2.0 Urine Leukocyte Esterase LARGE Urine WBC 112 Urine WBC Clumps OCC Urine Squamous Epithelial 3 Cells Microscopic Urinalysis Comment CULTURE INDICATED Crossmatch Leukocyte-Reduced Red Blood Cells Blood Bank Comment Date/Time Procedure Status Source Growth 12/19/16 18:05 Urine Culture Received Urine Clean Catch Pending Result Diagram: 12/19/16 1724 12/19/16 1724 Assessment and Plan Problem List: (1) GI bleed ICD Code: K92.2 Status: Acute (2) Anemia ICD Code: D64.9 Status: Acute (3) UTI (urinary tract infection) ICD Code: N39.0 Status: Acute (4) Cellulitis ICD Code: L03.90 Status: Acute (5) Renal insufficiency ICD Code: N28.9 Status: Acute (6) HTN (hypertension) ICD Code: I10 Status: Acute Assessment and Plan A/P: 1. GI Bleed: Hgb 6.9, +Hemoccult on exam, hemodynamically stable. 2u pRBC pending transfusion. Reports dark stool. H/o same in the past, underwent EGD/ Colonoscopy, however states poor visualization and was offered pill endoscopy, however declined due to concern of perforation. Will start Protonix gtt, consult GI, repeat Hgb/Hct. 2. Anemia: Acute on Chronic, compounded by GI Bleed. Hgb 6.9, transfuse 2u pRBC, check Hgb/Hct following transfusion. Check Ferritin/Iron/TIBC prior. Start Iron. 3. UTI: U/a w/ UTI. Recurrent. UTI 12/02/16 s/p Keflex 500mg po bid, completed treatment. Check Urine Culture, start IV Rocephin. 4. Cellulitis: LLE Cellulitis, +leukocytosis, low-grade temp. Start IV Clinda /Rocephin. 5. HTN: BP 150's on arrival, will monitor. Resume home medications. 6. DVT Prophylaxis: Pharmacologic contraindication secondary to active GI bleed. Mechanical contraindication secondary to lower extremity wound. 7. Social work for DC planning as needed. 8. Case discussed at length with ER physician. Physician Certification 2 Midnight Certification Type: Admission for Inpatient Services Order for Inpatient Services The services are ordered in accordance with Medicare regulations or non- Medicare payer requirements, as applicable. In the case of services not specified as inpatient-only, they are appropriately provided as inpatient services in accordance with the 2-midnight benchmark. Estimated LOS (days): 2 days is the estimated time the patient will need to remain in the hospital, assuming treatment plan goals are met and no additional complications. Post-Hospital Plan: Not yet determined Problem Qualifiers (1) Anemia: Qualified Code: D64.9 - Anemia, unspecified type (2) UTI (urinary tract infection): Qualified Code: N30.00 - Acute cystitis without hematuria Carol Patel MD Dec 19, 2016 19:24
[2016-12-19] MEDS ORDERED: PANTOPRAZOLE INJ 80 MG in SODIUM CHLORIDE 0.9% INJ 35 ML IV ONE (20:30)
[2016-12-19] MEDS: DOCUSATE SODIUM 50 MG/SENNA 8.6 MG TAB PO SCH (21:00)
[2016-12-19] MEDS ORDERED: FUROSEMIDE 20 MG/2 ML VIAL IV PUSH ONE (21:00)
[2016-12-19] MEDS: cefTRIAXone INJ 1,000 MG in SODIUM CHLORIDE 0.9% INJ 100 ML IV SCH (21:02)
[2016-12-19] MEDS: SODIUM CHLORIDE 0.9% FLUSH 10 ML FLUSH IV FLUSH SCH (21:22)
[2016-12-19] MEDS: PANTOPRAZOLE INJ 80 MG in SODIUM CHLORIDE 0.9% INJ 100 ML IV SCH (21:22)
[2016-12-19] MEDS: CLINDAMYCIN INJ 900 MG in SODIUM CHLORIDE 0.9% INJ 100 ML IV SCH (22:00)
[2016-12-19 22:11] LABS: TRANSFERRIN IRON PROFILE 264 MG/DL (200-360)
[2016-12-19 22:14] LABS: FERRITIN 14 NG/ML (8-252)
[2016-12-20] VITALS (10 sets, daily range): BP systolic 138–171; BP diastolic 67–83; PULSE 86–105; RESP 16–20; TEMP 97.3–98.5; O2SAT 94–96
[2016-12-20] MEDS: CLINDAMYCIN INJ 900 MG in SODIUM CHLORIDE 0.9% INJ 100 ML IV SCH ×3 (05:35→21:04)
[2016-12-20] MEDS: PANTOPRAZOLE INJ 80 MG in SODIUM CHLORIDE 0.9% INJ 100 ML IV SCH ×2 (05:35→16:51)
[2016-12-20 08:13] LABS: AUTOMATED NEUTROPHIL # 10.4 TH/MM3 (1.8-7.7); BASOPHIL # 0.1 TH/MM3 (0-0.2); EOSINOPHIL # 0.4 TH/MM3 (0-0.4); EOSINOPHIL % 2.7 % (0.0-4.0); HEMATOCRIT 25.6 % (35.0-46.0); HEMO FLAGS DIFF FINAL; LYMPH % 8.1 % (9.0-44.0); LYMPHOCYTE # 1.1 TH/MM3 (1.0-4.8); MEAN CELL VOLUME 84.4 FL (80.0-100.0); MEAN CORPUSCULAR HEMOGLOBIN 27.7 PG (27.0-34.0); MEAN CORPUSCULAR HGB CONC 32.8 % (32.0-36.0); MONO % 8.6 % (0.0-8.0); NEUT % 79.6 % (16.0-70.0); PLATELET COUNT 395 TH/MM3 (150-450); RED BLOOD COUNT 3.03 MIL/MM3 (4.00-5.30); RED CELL DISTRIBUTION WIDTH 17.4 % (11.6-17.2); WHITE BLOOD COUNT 13.1 TH/MM3 (4.0-11.0)
[2016-12-20] MEDS: DOCUSATE SODIUM 50 MG/SENNA 8.6 MG TAB PO SCH ×2 (08:33→21:03)
[2016-12-20] MEDS: FERROUS SULFATE 325 MG (65 MG ELEMENTAL IRON) TAB PO SCH (08:33)
[2016-12-20] MEDS: METOPROLOL TARTRATE 25 MG TAB PO SCH (08:34)
[2016-12-20] MEDS: SODIUM CHLORIDE 0.9% FLUSH 10 ML FLUSH IV FLUSH SCH ×2 (08:34→21:00)
[2016-12-20] MEDS: CYANOCOBALAMIN 100 MCG TAB PO SCH (08:34)
[2016-12-20 08:35] LABS: ALT (GPT) 15 U/L (10-53); ANION GAP 8 MEQ/L (5-15); AST (GOT) 18 U/L (15-37); BICARBONATE 25.6 MEQ/L (21.0-32.0); BLOOD UREA NITROGEN 50 MG/DL (7-18); CHLORIDE 108 MEQ/L (98-107); GLOMERULAR FILTRATION RATE 29 ML/MIN (>89); POTASSIUM 4.1 MEQ/L (3.5-5.1); SODIUM (NA) 142 MEQ/L (136-145)
[2016-12-20 08:37] LABS: ALKALINE PHOSPHATASE 69 U/L (45-117); TOTAL BILIRUBIN ADULT 0.4 MG/DL (0.2-1.0)
--- NOTE | 2016-12-20 10:30 | PD.CONS ---
HPI History of Present Illness This is a 81 year old female with PMH of HTN, Arthritis and Chronic Anemia who was sent to the ER by PCP secondary to outpatient Hemoglobin of 6.2. Anemia is chronic for the patient. By report she had EGD/colonoscopy > 5 yrs ago for same presentation in [place] and was told, colonoscopy was poor prep and was recommended CE but she hasn't done this. She has been following with hematology as well. She has been receiving iron infusion and B12 shots every 2 months. Denies NSAIDs, or blood thinner. She takes ASA but not daily. Denies nausea, vomiting, hematemesis, abd pain, wt loss, change in bowel, melena or hematochezia. States the stools maybe darker than usual but denies black tarry stools. She was found heme (+). hgb is 6.9. She tells she was always told she has large hiatal hernia (Kenyatta Powell) PFSH Past Medical History PMH: HTN, Arthritis and Chronic Anemia Past Surgical History PAST SURGICAL HISTORY: Appendectomy, Cholecystectomy, Lumpectomy, Bilateral Hip Replacement (Kenyatta Powell) Coded Allergies: Lotrel (Verified Allergy, Unknown, SWELLING, 12/19/16) Medications Current Medications Medications (Trade) Dose Ordered Sig/Lesli Route Start Time Stop Time Status Last Admin (NS 250 ml Inj) 250 ml @ 15 mls/hr ONCE ONCE IV 12/19/16 18:00 12/20/16 10:39 12/19/16 18:40 (NS Flush) 2 ml UNSCH PRN IV FLUSH 12/19/16 18:00 (NS Flush) 2 ml UNSCH PRN IV FLUSH 12/19/16 19:00 (NS Flush) 2 ml BID IV FLUSH 12/19/16 21:00 12/19/16 21:22 (Zofran Inj) 4 mg Q6H PRN IVP 12/19/16 19:00 (Tylenol) 650 mg Q6H PRN PO 12/19/16 19:00 ([place] 5-325 Mg) 1 tab Q4H PRN PO 12/19/16 19:00 ([place] 10-325 Mg) 1 tab Q4H PRN PO 12/19/16 19:00 (Ching-Colace) 1 tab BID PO 12/19/16 21:00 12/20/16 08:33 (Milk Of Magnesia Liq) 30 ml Q12H PRN PO 12/19/16 19:00 (Senokot) 17.2 mg Q12H PRN PO 12/19/16 19:00 (Dulcolax Supp) 10 mg DAILY PRN RECTAL 12/19/16 19:00 (Lactulose Liq) 30 ml DAILY PRN PO 12/19/16 19:00 (Ferrous Sulfate) 325 mg DAILY PO 12/20/16 09:00 12/20/16 08:33 (Vitamin B12) 100 mcg DAILY PO 12/20/16 09:00 12/20/16 08:34 Metoprolol Tartrate 25 mg 25 mg DAILY PO 12/20/16 09:00 12/20/16 08:34 Ceftriaxone Sodium 1000 mg/ Sodium Chloride 100 ml @ 200 mls/hr Q24H IV 12/19/16 20:00 12/19/16 21:02 Pantoprazole Sodium 80 mg/ Sodium Chloride 100 ml @ 10 mls/hr Q10H IV 12/19/16 20:30 12/20/16 05:35 (Cleocin Inj/NS Inj) 106 ml @ 212 mls/hr Q8H IV 12/19/16 21:00 12/20/16 05:35 Family History No family hx of colon cancer Social History PAST SOCIAL HISTORY: Negative for alcohol, tobacco or drugs. (Kenyatta Powell ) Review of Systems Constitutional: DENIES: Weight loss Endocrine: DENIES: Polyuria Eyes: DENIES: Double Vision Ears, nose, mouth, throat: DENIES: Hoarseness Respiratory: DENIES: Sputum production, Shortness of breath Cardiovascular: DENIES: Lower Extremity Edema Gastrointestinal: DENIES: Abdominal pain, Black stools, Bloody stools, Constipation, Diarrhea, Nausea, Vomiting, Difficulty Swallowing, Anorexia, Odynophagia, Swelling of Abdomen, Heartburn, Hematemesis Genitourinary: DENIES: Hematuria Musculoskeletal: COMPLAINS OF: Back pain, DENIES: Neck pain Integumentary: DENIES: Jaundice Hematologic/lymphatic: COMPLAINS OF: Bruising Immunologic/allergic: DENIES: Eczema Neurologic: DENIES: Abnormal gait Psychiatric: DENIES: Anxiety (Kenyatta Powell) GI Exam Vitals I&O Vital Signs Date Time Temp Pulse Resp B/P Pulse Ox O2 Delivery O2 Flow Rate FiO2 12/20/16 08:02 97.4 105 19 171/83 96 12/20/16 04:23 96 12/20/16 04:05 97.7 98 16 152/73 95 12/20/16 02:30 97.8 95 20 156/76 95 12/20/16 00:04 97.3 101 16 169/79 96 12/19/16 23:30 98.0 97 20 170/87 97 12/19/16 23:15 97.9 96 20 163/84 96 12/19/16 23:00 92 12/19/16 21:55 98.1 100 16 168/89 97 12/19/16 21:29 80 16 157/76 96 12/19/16 20:41 98.3 96 17 156/68 96 Room Air 12/19/16 20:30 98.2 96 16 147/67 96 Room Air 12/19/16 20:00 101 18 160/75 97 Room Air 12/19/16 18:00 98 12/19/16 17:04 99.1 105 18 156/74 96 Room Air I/O 12/19/16 12/19/16 12/19/16 12/20/16 12/20/16 12/20/16 07:00 15:00 23:00 07:00 15:00 23:00 Intake Total 714 ml Output Total 1800 ml Balance -1086 ml Intake Oral 240 ml IV Total 474 ml Output Urine Total 1800 ml # Bowel Movements 0 Laboratory Test 12/19/16 12/19/16 12/19/16 12/19/16 17:24 17:45 18:05 18:32 White Blood Count 13.5 TH/MM3 Red Blood Count 2.53 MIL/MM3 Hemoglobin 6.9 GM/DL Hematocrit 21.3 % Mean Corpuscular Volume 84.1 FL Mean Corpuscular Hemoglobin 27.2 PG Mean Corpuscular Hemoglobin 32.4 % Concent Red Cell Distribution Width 17.4 % Platelet Count 471 TH/MM3 Mean Platelet Volume 7.6 FL Neutrophils (%) (Auto) 77.4 % Lymphocytes (%) (Auto) 10.0 % Monocytes (%) (Auto) 8.4 % Eosinophils (%) (Auto) 3.0 % Basophils (%) (Auto) 1.2 % Neutrophils # (Auto) 10.4 TH/MM3 Lymphocytes # (Auto) 1.3 TH/MM3 Monocytes # (Auto) 1.1 TH/MM3 Eosinophils # (Auto) 0.4 TH/MM3 Basophils # (Auto) 0.2 TH/MM3 CBC Comment DIFF FINAL Differential Comment Sodium Level 142 MEQ/L Potassium Level 4.4 MEQ/L Chloride Level 109 MEQ/L Carbon Dioxide Level 24.1 MEQ/L Anion Gap 9 MEQ/L Blood Urea Nitrogen 59 MG/DL Creatinine 1.75 MG/DL Estimat Glomerular Filtration 28 ML/MIN Rate Random Glucose 89 MG/DL Calcium Level 9.2 MG/DL Total Bilirubin 0.2 MG/DL Aspartate Amino Transf 15 U/L (AST/SGOT) Alanine Aminotransferase 14 U/L (ALT/SGPT) Alkaline Phosphatase 83 U/L Total Protein 6.9 GM/DL Albumin 3.1 GM/DL Blood Type O POSITIVE Antibody Screen NEGATIVE Urine Color LIGHT-YELLOW Urine Turbidity HAZY Urine pH 5.5 Urine Specific [place] 1.015 Urine Protein 30 mg/dL Urine Glucose (UA) NEG mg/dL Urine Ketones NEG mg/dL Urine Occult Blood NEG Urine Nitrite NEG Urine Bilirubin NEG Urine Urobilinogen LESS THAN 2.0 MG/DL Urine Leukocyte Esterase LARGE Urine WBC 112 /hpf Urine WBC Clumps OCC Urine Squamous Epithelial 3 /hpf Cells Microscopic Urinalysis Comment CULTURE INDICATED Crossmatch Leukocyte-Reduced Red Blood Cells Blood Bank Comment Test 12/19/16 12/20/16 21:15 07:16 Iron Level 17 MCG/DL Total Iron Binding Capacity 370 MCG/DL Percent Iron Saturation 4.6 % Ferritin 14 NG/ML White Blood Count 13.1 TH/MM3 Red Blood Count 3.03 MIL/MM3 Hemoglobin 8.4 GM/DL Hematocrit 25.6 % Mean Corpuscular Volume 84.4 FL Mean Corpuscular Hemoglobin 27.7 PG Mean Corpuscular Hemoglobin 32.8 % Concent Red Cell Distribution Width 17.4 % Platelet Count 395 TH/MM3 Mean Platelet Volume 7.5 FL Neutrophils (%) (Auto) 79.6 % Lymphocytes (%) (Auto) 8.1 % Monocytes (%) (Auto) 8.6 % Eosinophils (%) (Auto) 2.7 % Basophils (%) (Auto) 1.0 % Neutrophils # (Auto) 10.4 TH/MM3 Lymphocytes # (Auto) 1.1 TH/MM3 Monocytes # (Auto) 1.1 TH/MM3 Eosinophils # (Auto) 0.4 TH/MM3 Basophils # (Auto) 0.1 TH/MM3 CBC Comment DIFF FINAL Differential Comment Sodium Level 142 MEQ/L Potassium Level 4.1 MEQ/L Chloride Level 108 MEQ/L Carbon Dioxide Level 25.6 MEQ/L Anion Gap 8 MEQ/L Blood Urea Nitrogen 50 MG/DL Creatinine 1.69 MG/DL Estimat Glomerular Filtration 29 ML/MIN Rate Random Glucose 90 MG/DL Calcium Level 8.8 MG/DL Total Bilirubin 0.4 MG/DL Aspartate Amino Transf 18 U/L (AST/SGOT) Alanine Aminotransferase 15 U/L (ALT/SGPT) Alkaline Phosphatase 69 U/L Total Protein 6.4 GM/DL Albumin 2.9 GM/DL Date/Time Procedure Status Source Growth 12/19/16 18:05 Urine Culture Received Urine Clean Catch Pending Physical Examination HEENT: normocephalic; atraumatic; no jaundice. NECK: Neck is supple, no JVD, no lymphadenopathy. CHEST: Chest is clear to auscultation and percussion. CARDIAC: Regular rate and rhythm with no murmur gallop or rubs. ABDOMEN: Soft, nondistended, nontender; no hepatosplenomegaly; bowel sounds are present in all four quadrants. EXTREMITIES: No clubbing, cyanosis, or edema.mild surrounding erythema LLE SKIN: ecchymosis OPTICAL LABORATORY TECHNICIAN: No focal deficits; alert and oriented times three. (Kenyatta Powell) Assessment and Plan Plan - Acute on chronic anemia , heme (+) stools- secondary to outpatient Hemoglobin of 6.2. Anemia is chronic for the patient. By report she had EGD/colonoscopy > 5 yrs ago for same presentation in [place] and was told, colonoscopy was poor prep and was recommended CE but she hasn't done this. She has been following with hematology as well. She has been receiving iron infusion and B12 shots every 2 months. Denies NSAIDs, or blood thinner. She takes ASA but not daily. Denies nausea, vomiting, hematemesis, abd pain, wt loss, change in bowel, melena or hematochezia. States the stools maybe darker than usual but denies black tarry stools. She was found heme (+). hgb is 6.9. She tells she was always told she has large hiatal hernia. PPI, blood transfusion - UTI per attending - Cellulitis/+leukocytosis,- LLE - HTN, per attending Plan: - CHARLY - I have discussed with patient doing EGD/colonoscopy, but she has fear of bowel perf with colonoscopy due to abnormal curvature of the spine but she is willing to have EGD done - EGD on Thursday - Obtain consents - NPO Thursday night - Cont. PPI - Monitor hh - Transfuse as needed - Supportive care - Patient seen and examined by Dr. Vela and myself and this note is written on his behalf (Kenyatta Powell) Physician Comments Patient seen and examined agree with above Continue with current supportive care Monitor labs Patient agreeing to an upper endoscopy but refusing a colonoscopy at this point (Stoney Vela MD) Kenyatta Powell Dec 20, 2016 10:30 Stoney Vela MD Dec 20, 2016 21:03
--- NOTE | 2016-12-20 15:06 | HHI.PR ---
Subjective Remarks 2 units packed red blood cells provided overnight. Patient's hemoglobin is 8.4 this morning which is improved since 6.2 the prior day. She is on antibiotics for UTI and cellulitis. The anemia 6.2 was an incidental finding as patient did not have symptoms. This may point towards a slow GI bleed as patient was GI bleed positive on testing. No new complaints today. No abdominal pain. Objective Vital Signs Date Time Temp Pulse Resp B/P Pulse Ox O2 Delivery O2 Flow Rate FiO2 12/20/16 12:02 98.3 86 18 155/82 95 12/20/16 08:50 95 12/20/16 08:02 97.4 105 19 171/83 96 12/20/16 04:23 96 12/20/16 04:05 97.7 98 16 152/73 95 12/20/16 02:30 97.8 95 20 156/76 95 12/20/16 00:04 97.3 101 16 169/79 96 12/19/16 23:30 98.0 97 20 170/87 97 12/19/16 23:15 97.9 96 20 163/84 96 12/19/16 23:00 92 12/19/16 21:55 98.1 100 16 168/89 97 12/19/16 21:29 80 16 157/76 96 12/19/16 20:41 98.3 96 17 156/68 96 Room Air 12/19/16 20:30 98.2 96 16 147/67 96 Room Air 12/19/16 20:00 101 18 160/75 97 Room Air 12/19/16 18:00 98 12/19/16 17:04 99.1 105 18 156/74 96 Room Air I/O 12/19/16 12/19/16 12/19/16 12/20/16 12/20/16 12/20/16 07:00 15:00 23:00 07:00 15:00 23:00 Intake Total 714 ml Output Total 1800 ml Balance -1086 ml Intake Oral 240 ml IV Total 474 ml Output Urine Total 1800 ml # Bowel Movements 0 Result Diagram: 12/20/1671512/20/1616 Objective Remarks GENERAL: NAD, A&Ox3 HEAD: Normocephalic. NECK: Supple, trachea midline. No lymphadenopathy. EYES: No scleral icterus. No injection or drainage. CARDIOVASCULAR: Regular rate and rhythm without murmurs, gallops, or rubs. RESPIRATORY: Breath sounds equal bilaterally. No accessory muscle use. GASTROINTESTINAL: Abdomen soft, non-tender, nondistended. MUSCULOSKELETAL: No cyanosis, or edema. SKIN: Warm and dry. NEURO: No focal neurological deficitis. A/P Problem List: (1) GI bleed ICD Code: K92.2 (2) HTN (hypertension) ICD Code: I10 (3) UTI (urinary tract infection) ICD Code: N39.0 (4) Cellulitis ICD Code: L03.90 (5) Renal insufficiency ICD Code: N28.9 (6) Anemia ICD Code: D64.9 Assessment and Plan Assessment and plan 81-year-old female admitted secondary to GI bleed with anemia GI Bleed Blood loss anemia GI following Follow CBC Transfuse again if needed Plan for EGD UTI Continue Rocephin Probiotics Follow urine culture Cellulitis Follow CBC Continue Rocephin and clindamycin Improving clinically, continue to monitor Hypertension Continue home treatments Follow blood pressures Presently pressures are stable DVT prophylaxis SCDs contraindicated and patient has active bleed Problem Qualifiers (1) UTI (urinary tract infection): Qualified Code: N30.00 - Acute cystitis without hematuria (2) Anemia: Qualified Code: D64.9 - Anemia, unspecified type Ashish Castro MD Dec 20, 2016 15:06
[2016-12-20] MEDS ORDERED: RESP: ALBUTEROL 2.5 MG/3 ML NEB (PRN) INH (18:45)
[2016-12-20] MEDS: cefTRIAXone INJ 1,000 MG in SODIUM CHLORIDE 0.9% INJ 100 ML IV SCH (21:04)
[2016-12-21] VITALS (7 sets, daily range): BP systolic 131–185; BP diastolic 63–93; PULSE 84–119; RESP 18–20; TEMP 98.1–98.8; O2SAT 94–96
[2016-12-21] MEDS: PANTOPRAZOLE INJ 80 MG in SODIUM CHLORIDE 0.9% INJ 100 ML IV SCH ×3 (01:47→22:51)
[2016-12-21] MEDS: CLINDAMYCIN INJ 900 MG in SODIUM CHLORIDE 0.9% INJ 100 ML IV SCH ×3 (04:48→22:50)
[2016-12-21 08:01] LABS: HEMATOCRIT 24.3 % (35.0-46.0); MEAN CELL VOLUME 86.1 FL (80.0-100.0); MEAN CORPUSCULAR HEMOGLOBIN 29.1 PG (27.0-34.0); MEAN CORPUSCULAR HGB CONC 33.7 % (32.0-36.0); PLATELET COUNT 365 TH/MM3 (150-450); RED BLOOD COUNT 2.83 MIL/MM3 (4.00-5.30); RED CELL DISTRIBUTION WIDTH 17.7 % (11.6-17.2); REVIEW FLAG FINAL; WHITE BLOOD COUNT 12.6 TH/MM3 (4.0-11.0)
[2016-12-21 08:17] LABS: POTASSIUM 4.2 MEQ/L (3.5-5.1)
[2016-12-21] MEDS: CYANOCOBALAMIN 100 MCG TAB PO SCH (08:45)
[2016-12-21] MEDS: SODIUM CHLORIDE 0.9% FLUSH 10 ML FLUSH IV FLUSH SCH ×2 (08:45→22:11)
[2016-12-21] MEDS: DOCUSATE SODIUM 50 MG/SENNA 8.6 MG TAB PO SCH ×2 (08:45→21:00)
[2016-12-21] MEDS: FERROUS SULFATE 325 MG (65 MG ELEMENTAL IRON) TAB PO SCH (08:45)
[2016-12-21] MEDS: METOPROLOL TARTRATE 25 MG TAB PO SCH (08:45)
--- NOTE | 2016-12-21 12:05 | HHI.PR ---
Subjective Remarks Hemoglobin stable compared to yesterday. Present hemoglobin is 8.2 and was 8.4 yesterday. Procedure for tomorrow as discussed with the patient. She is now agreeable to have colonoscopy and EGD done tomorrow. She has concerns about her sleep apnea and is encouraged to discuss this with the anesthesiologist tomorrow. Objective Vital Signs Date Time Temp Pulse Resp B/P Pulse Ox O2 Delivery O2 Flow Rate FiO2 12/21/16 08:00 98.3 97 20 166/78 95 12/21/16 04:00 98.1 99 18 144/70 95 12/21/16 00:00 98.1 100 18 131/63 96 12/20/16 21:00 100 12/20/16 20:00 98.1 98 18 153/69 94 12/20/16 18:26 95 Room Air 12/20/16 16:02 98.5 88 18 138/67 96 I/O 12/20/16 12/20/16 12/20/16 12/21/16 12/21/16 12/21/16 06:59 14:59 22:59 06:59 14:59 22:59 Intake Total 714 ml 420 ml 573 ml 480 ml Output Total 1800 ml 2000 ml 300 ml Balance -1086 ml -1580 ml 573 ml 180 ml Intake Oral 240 ml 420 ml 480 ml 480 ml IV Total 474 ml 93 ml Output Urine Total 1800 ml 2000 ml 300 ml Stool Total 0 ml # Voids 1 1 # Bowel Movements 0 0 Result Diagram: 12/21/16 0610 12/21/16 0610 Objective Remarks GENERAL: NAD, A&Ox3 HEAD: Normocephalic. NECK: Supple, trachea midline. No lymphadenopathy. EYES: No scleral icterus. No injection or drainage. CARDIOVASCULAR: Regular rate and rhythm without murmurs, gallops, or rubs. RESPIRATORY: Breath sounds equal bilaterally. No accessory muscle use. GASTROINTESTINAL: Abdomen soft, non-tender, nondistended. MUSCULOSKELETAL: No cyanosis, or edema. SKIN: Warm and dry. NEURO: No focal neurological deficitis. A/P Problem List: (1) GI bleed ICD Code: K92.2 (2) HTN (hypertension) ICD Code: I10 (3) UTI (urinary tract infection) ICD Code: N39.0 (4) Cellulitis ICD Code: L03.90 (5) Renal insufficiency ICD Code: N28.9 (6) Anemia ICD Code: D64.9 Assessment and Plan Assessment and plan 81-year-old female admitted secondary to GI bleed with anemia. Improved hemoglobin with transfusion. Stability in hemoglobin is demonstrated over last 24 hours. Repeat CBC in a.m. Plan for EGD and colonoscopy tomorrow. GI Bleed Blood loss anemia GI following Follow CBC Transfuse again if needed Plan for EGD UTI Continue Rocephin Probiotics Follow urine culture Cellulitis Follow CBC Continue Rocephin and clindamycin Improving clinically, continue to monitor Hypertension Continue home treatments Follow blood pressures Presently pressures are stable DVT prophylaxis SCDs contraindicated and patient has active bleed Problem Qualifiers (1) UTI (urinary tract infection): Qualified Code: N30.00 - Acute cystitis without hematuria (2) Anemia: Qualified Code: D64.9 - Anemia, unspecified type Ashish Castro MD Dec 21, 2016 12:05 pm
--- NOTE | 2016-12-21 14:21 | HHI.GIFU ---
Subjective Remarks Lying in bed in no distress. Denies abdominal pain, nausea or vomiting. Reports she took Colace and had BM today (unsure of characteristics of BM). Agrees to do both EGD and Colonoscopy tomorrow. HH stable. (Rosalia Rincon) Objective Vitals I&O Vital Signs Date Time Temp Pulse Resp B/P Pulse Ox O2 Delivery O2 Flow Rate FiO2 12/21/16 12:00 98.2 84 20 150/77 95 12/21/16 08:50 Nasal Cannula 2.00 12/21/16 08:50 96 12/21/16 08:00 98.3 97 20 166/78 95 12/21/16 04:00 98.1 99 18 144/70 95 12/21/16 00:00 98.1 100 18 131/63 96 12/20/16 21:00 100 12/20/16 20:00 98.1 98 18 153/69 94 12/20/16 18:26 95 Room Air 12/20/16 16:02 98.5 88 18 138/67 96 I/O 12/20/16 12/20/16 12/20/16 12/21/16 12/21/16 12/21/16 07:00 15:00 23:00 07:00 15:00 23:00 Intake Total 714 ml 420 ml 573 ml 480 ml Output Total 1800 ml 2000 ml 300 ml Balance -1086 ml -1580 ml 573 ml 180 ml Intake Oral 240 ml 420 ml 480 ml 480 ml IV Total 474 ml 93 ml Output Urine Total 1800 ml 2000 ml 300 ml Stool Total 0 ml # Voids 1 1 # Bowel Movements 0 0 Laboratory Laboratory Tests Test 12/21/16 06:10 White Blood Count 12.6 Red Blood Count 2.83 Hemoglobin 8.2 Hematocrit 24.3 Mean Corpuscular Volume 86.1 Mean Corpuscular Hemoglobin 29.1 Mean Corpuscular Hemoglobin 33.7 Concent Red Cell Distribution Width 17.7 Platelet Count 365 Mean Platelet Volume 7.6 Sodium Level 142 Potassium Level 4.2 Chloride Level 111 Carbon Dioxide Level 23.0 Anion Gap 8 Blood Urea Nitrogen 46 Creatinine 1.80 Estimat Glomerular Filtration 27 Rate Random Glucose 94 Calcium Level 8.6 Date/Time Procedure Status Source Growth 12/19/16 18:05 Urine Culture - Final Complete Urine Clean Catch 10-50,000 CFU/ML MIXED MICHELLE... Physical Exam HEENT: Normocephalic; atraumatic; no jaundice. Throat is clear. NECK: Neck is supple, no JVD, no lymphadenopathy. CHEST: CTA CARDIAC: RRR with no murmur gallop or rubs. ABDOMEN: Soft, nondistended, nontender; no hepatosplenomegaly; bowel sounds x 4 quadrants EXTREMITIES: No clubbing, cyanosis, or edema. SKIN: Ecchymosis CHANNEL PROGRAM MANAGER: No focal deficits; alert and oriented x 3 (Rosalia Rincon) Assessment and Plan Plan - Acute on chronic anemia , heme (+) stools- secondary to outpatient Hemoglobin of 6.2. Anemia is chronic for the patient. By report she had EGD/colonoscopy > 5 yrs ago for same presentation in [place] and was told, colonoscopy was poor prep and was recommended CE but she hasn't done this. She has been following with hematology as well. She has been receiving iron infusion and B12 shots every 2 months. Denies NSAIDs, or blood thinner. She takes ASA but not daily. She states she was always told she has large hiatal hernia. Denies nausea, vomiting, abdominal pain. States the stools maybe darker than usual but denies black tarry stools. She was found heme (+). HH was 6.9/21.3 (12/19) s/p blood transfusion, HH today, 8.2/24.3. PPI. - UTI per attending - Cellulitis/+leukocytosis,- LLE - HTN, per attending Plan: - EGD/Colonoscopy Thursday - Obtain consents - Clear liquid diet today - NPO at midnight - Bowel prep today - Cont. PPI - Monitor HH, transfuse as needed. - Supportive care - Further recommendations to follow based on results of above Patient seen and examined by Dr. Vela and myself and this note is written on his behalf (Rosalia Rincon) Physician Comments Patient seen and examined Agree with above Continue with current supportive care Monitor labs EGD with colonoscopy tomorrow (Stoney Vela MD) Rosalia iRncon Dec 21, 2016 14:20 Stoney Vela MD Dec 21, 2016 21:00
[2016-12-21] MEDS ORDERED: PEG (High)/E-LYTE SOLN 4000 ML BTL PO ONE (16:00)
[2016-12-21] MEDS: cefTRIAXone INJ 1,000 MG in SODIUM CHLORIDE 0.9% INJ 100 ML IV SCH (22:10)
[2016-12-21] MEDS: ACETAMINOPHEN 325 MG TAB PO PRN (23:01)
[2016-12-22] VITALS (9 sets, daily range): BP systolic 134–169; BP diastolic 80–95; PULSE 80–112; RESP 18–20; TEMP 97.9–98.5; O2SAT 93–98
[2016-12-22] MEDS: CLINDAMYCIN INJ 900 MG in SODIUM CHLORIDE 0.9% INJ 100 ML IV SCH (05:06)
[2016-12-22 07:56] LABS: HEMATOCRIT 29.1 % (35.0-46.0); MEAN CELL VOLUME 85.4 FL (80.0-100.0); MEAN CORPUSCULAR HEMOGLOBIN 26.8 PG (27.0-34.0); MEAN CORPUSCULAR HGB CONC 31.3 % (32.0-36.0); PLATELET COUNT 427 TH/MM3 (150-450); RED CELL DISTRIBUTION WIDTH 17.8 % (11.6-17.2); REVIEW FLAG FINAL; WHITE BLOOD COUNT 15.6 TH/MM3 (4.0-11.0)
[2016-12-22 08:19] LABS: BICARBONATE 24.8 MEQ/L (21.0-32.0)
[2016-12-22] MEDS: PANTOPRAZOLE INJ 80 MG in SODIUM CHLORIDE 0.9% INJ 100 ML IV SCH (08:45)
[2016-12-22] MEDS: ACETAMINOPHEN 325 MG TAB PO PRN ×2 (08:46→15:32)
[2016-12-22] MEDS: CYANOCOBALAMIN 100 MCG TAB PO SCH (08:47)
[2016-12-22] MEDS: FERROUS SULFATE 325 MG (65 MG ELEMENTAL IRON) TAB PO SCH (08:47)
[2016-12-22] MEDS: METOPROLOL TARTRATE 25 MG TAB PO SCH (08:47)
[2016-12-22] MEDS: DOCUSATE SODIUM 50 MG/SENNA 8.6 MG TAB PO SCH (08:47)
[2016-12-22] MEDS: SODIUM CHLORIDE 0.9% FLUSH 10 ML FLUSH IV FLUSH SCH (09:00)
[2016-12-22] MEDS ORDERED: PROPOFOL 200 MG/20 ML AMP IV ONE (13:49)
--- NOTE | 2016-12-22 14:26 | GIPROC ---
[facility] [address] [facility]. [facility], [address] COLONOSCOPY PROCEDURE REPORT EXAM DATE: 12/22/2016 PATIENT NAME: Elise Savage MR #: [id number] BIRTHDATE: 1935 ENDOSCOPIST: Andressa Ashby MD ORDER #: [id number] SOUP MIXER: Pee Montiel and Dakota Hernandez STATUS: inpatient INDICATIONS: The patient is a 81 yr old female here for a colonoscopy due to anemia PROCEDURE PERFORMED: Colonoscopy, diagnostic MEDICATIONS: None and Per Anesthesia. PREP QUALITY: fair PREP TYPE:Other: ESTIMATED BLOOD LOSS: None CONSENT: The patient understands the risks and benefits of the procedure and understands that these risks include, but are not limited to: sedation, allergic reaction, infection, perforation and/or bleeding. Alternative means of evaluation and treatment include, among others: physical exam, x-rays, and/or surgical intervention. The patient elects to proceed with this endoscopic procedure. medical equipment was checked for proper function. Hand hygiene and appropriate measures for infection prevention was taken. After the risks, benefits and alternatives of the procedure were thoroughly explained, Informed consent was verified, confirmed and timeout was successfully executed by the treatment team. A digital exam revealed internal hemorrhoids The Pentax [id number] endoscope was introduced through the anus and advanced to the cecum, which was identified by both the appendix and ileocecal valve. The instrument was then slowly withdrawn as the colon was fully examined. COLON FINDINGS: Diverticulosis sigmoid,descending very tortous and floppy colon. Retroflexed views revealed internal hemorrhoids and Retroflexed views revealed small internal hemorrhoids The scope was then completely withdrawn from the patient and the procedure terminated. PROCEDURE WITHDRAWAL TIME:6minutes ADVERSE EVENTS: There were no complications. IMPRESSIONS: 1. Diverticulosis sigmoid,descending very tortous and floppy colon 2. Retroflexed views revealed internal hemorrhoids 3. Retroflexed views revealed small internal hemorrhoids 4. Revealed internal hemorrhoids RECOMMENDATIONS: 1. Benefiber 2 tsp daily 2. High fiber diet 3. Probiotics from any [facility] or health food store 4. Yearly rectal exams RECALL: Colonoscopy Andressa Ashby MD eSigned: Andressa Ashby MD 12/22/2016 2:25 PM cc:
--- NOTE | 2016-12-22 14:29 | GIPROC ---
[facility] [address] [facility]. [facility], [address] EGD PROCEDURE REPORT EXAM DATE: 12/22/2016 PATIENT NAME: Elise Savage MR #: [id number] BIRTHDATE: 1935 ATTENDING: Andressa Ashby MD ORDER #: [id number] STORE MGR: Pee Montiel and Dakota Hernandez STATUS: inpatient INDICATIONS: The patient is a 81 yr old female here for an EGD due to anemia PROCEDURE PERFORMED: EGD w/ biopsy MEDICATIONS: None and Per Anesthesia. TOPICAL ANESTHETIC: none CONSENT: The patient understands the risks and benefits of the procedure and understands that these risks include, but are not limited to: sedation, allergic reaction, infection, perforation and/or bleeding. Alternative means of evaluation and treatment include, among others: physical exam, x-rays, and/or surgical intervention. The patient elects to proceed with this endoscopic procedure. medical equipment was checked for proper function. Hand hygiene and appropriate measures for infection prevention was taken. After the risks, benefits and alternatives of the procedure were thoroughly explained, Informed consent was verified, confirmed and timeout was successfully executed by the treatment team. The patient was anesthetized with topical anesthesia and the [id number] (Pedi C) endoscope was introduced through the mouth and advanced to the second portion of the duodenum. Retroflexed views revealed a hiatal hernia The gastroscope was then slowly withdrawn and removed. Duodenum normal-biopsy gastritis antrum-biopsy large hiatal hernia esophagitis distal [id number] -NBI scope used. ADVERSE EVENTS: There were no complications. IMPRESSIONS: 1. Duodenum normal-biopsy gastritis antrum-biopsy large hiatal hernia esophagitis distal [id number]'s -NBI scope used 2. Retroflexed views revealed a hiatal hernia RECOMMENDATIONS: 1. Await biopsy results. Biopsy results will not be ready for 7-10 days. If you don't hear from us in two weeks, call our office for biopsy results. 2. Anti-reflux regimen 3. Continue PPI 4. Capsule endoscopy op hematology consult PATIENT CONDITION: stable DISPOSITION: Inpatient REPEAT EXAM: EGD pending biopsy results Andressa Ashby MD eSigned: Andressa Ashby MD 12/22/2016 2:28 PM cc: PATIENT NAME: Isabela Savagelinda Roca MR#: [id number]
[2016-12-22] MEDS ORDERED: DIATRIZOATE MEGLUM/DIATRIZOATE SOD 9 ML CUP PO ONE (14:38)
--- NOTE | 2016-12-22 15:40 | HHI.DS ---
Discharge Summary Admission Date Dec 19, 2016 at 19:25 Discharge Date: Dec 22, 2016 Admitting Diagnosis Symptomatic anemia (1) GI bleed ICD Code: K92.2 Diagnosis: Principal (2) Anemia ICD Code: D64.9 Diagnosis: Principal (3) UTI (urinary tract infection) ICD Code: N39.0 Diagnosis: Secondary (4) Cellulitis ICD Code: L03.90 Diagnosis: Secondary (5) Renal insufficiency ICD Code: N28.9 Diagnosis: Secondary (6) HTN (hypertension) ICD Code: I10 Diagnosis: Secondary Procedures 2 units PRBC transfussion EGD and Colonoscopy Brief History - From Admission An 81-year-old female with PMH of HTN, Arthritis and Chronic Anemia who was sent to the ER by PCP secondary to outpatient Hemoglobin of 6.2. Patient without complaints at this time. Previous admit for similar circumstance 11/25/16 , Hgb 6.2 at that time, s/p 2u pRBC w/ repeat Hgb 8.5, d/c'd home w/ instructions to follow up w/ PCP and Hematology, however has not had Hematology follow up. Hgb currently 6.9. 2u pRBC ordered in ER, currently pending transfusion. +Hemoccult on exam, not on anticoagulation. BP 156/74, HR 105, O2 sat 96% RA, Temp 99.1. WBC 13.5. He [place] 6.9. Platelets 471. Chemistry unremarkable except for creatinine 1.75, previously 1.90 on 12/02/16. UA positive for UTI. Seen in ER on 12/02/16, found to have UTI, s/p Keflex 500mg po q12h, completed treatment. CBC/BMP: 12/22/16 0723 12/22/16 0723 Significant Findings Laboratory Tests Test 12/19/16 12/19/16 12/19/16 12/20/16 17:24 18:05 21:15 07:16 White Blood Count 13.5 TH/MM3 13.1 TH/MM3 (4.0-11.0) (4.0-11.0) Red Blood Count 2.53 MIL/MM3 3.03 MIL/MM3 (4.00-5.30) (4.00-5.30) Hemoglobin 6.9 GM/DL 8.4 GM/DL (11.6-15.3) (11.6-15.3) Hematocrit 21.3 % 25.6 % (35.0-46.0) (35.0-46.0) Red Cell Distribution Width 17.4 % 17.4 % (11.6-17.2) (11.6-17.2) Platelet Count 471 TH/MM3 (150-450) Neutrophils (%) (Auto) 77.4 % 79.6 % (16.0-70.0) (16.0-70.0) Monocytes (%) (Auto) 8.4 % (0.0-8.0) 8.6 % (0.0-8.0) Neutrophils # (Auto) 10.4 TH/MM3 10.4 TH/MM3 (1.8-7.7) (1.8-7.7) Monocytes # (Auto) 1.1 TH/MM3 1.1 TH/MM3 (0-0.9) (0-0.9) Chloride Level 109 MEQ/L 108 MEQ/L (98-107) (98-107) Blood Urea Nitrogen 59 MG/DL (7-18) 50 MG/DL (7-18) Creatinine 1.75 MG/DL 1.69 MG/DL (0.50-1.00) (0.50-1.00) Estimat Glomerular Filtration 28 ML/MIN (>89) 29 ML/MIN (>89) Rate Albumin 3.1 GM/DL 2.9 GM/DL (3.4-5.0) (3.4-5.0) Urine Turbidity HAZY (CLEAR) Urine Protein 30 mg/dL (NEG-TRACE) Urine Leukocyte Esterase LARGE (NEG) Urine WBC 112 /hpf (0-5) Urine WBC Clumps OCC (NONE) Iron Level 17 MCG/DL (50-170) Percent Iron Saturation 4.6 % (20-50) Lymphocytes (%) (Auto) 8.1 % (9.0-44.0) Test 12/21/16 12/22/16 06:10 07:23 White Blood Count 12.6 TH/MM3 15.6 TH/MM3 (4.0-11.0) (4.0-11.0) Red Blood Count 2.83 MIL/MM3 3.40 MIL/MM3 (4.00-5.30) (4.00-5.30) Hemoglobin 8.2 GM/DL 9.1 GM/DL (11.6-15.3) (11.6-15.3) Hematocrit 24.3 % 29.1 % (35.0-46.0) (35.0-46.0) Red Cell Distribution Width 17.7 % 17.8 % (11.6-17.2) (11.6-17.2) Chloride Level 111 MEQ/L 108 MEQ/L (98-107) (98-107) Blood Urea Nitrogen 46 MG/DL (7-18) 31 MG/DL (7-18) Creatinine 1.80 MG/DL 1.55 MG/DL (0.50-1.00) (0.50-1.00) Estimat Glomerular Filtration 27 ML/MIN (>89) 32 ML/MIN (>89) Rate Mean Corpuscular Hemoglobin 26.8 PG (27.0-34.0) Mean Corpuscular Hemoglobin 31.3 % Concent (32.0-36.0) Random Glucose 109 MG/DL (74-106) Hospital Course Mrs. Savage is an 81 year old female. She is here secondary to a finding of acute anemia and severe anemia as an outpatient. She required two units PRBC transfussion here. She had a positive stool study and reports dark colored stools occasionally. Slow bleed may be an etiology as she had no significant anemia symptoms despite a Hgb of 6.9. Post transfussion she has had a stable Hgb and actually has a sponatneous upward trend today. EGD and Colonoscopy performed today with gastric biopsy taken. No acute findings or evidence of active bleed. Medically cleared for discharge to home. Plan for GI follow up and pill capsule study as an outpatient. Discharge home today. Pt Condition on Discharge: Stable Discharge Disposition: Discharge Home Discharge Time: <= 30 minutes Discharge Instructions DIET: Follow Instructions for: As Tolerated, No Restrictions Activities you can perform: Regular-No Restrictions Follow up Referrals: Gastroenterology - 2 Weeks with Andressa Ashby MD PCP Follow-up - 2 Weeks Continued Medications: Cyanocobalamin (B-12) 100 Mcg Tab 100 MCG PO DAILY Nutritional Supplement #1 Ref 0 BOTTLE Metoprolol Tartrate (Metoprolol Tartrate) 25 Mg Tab 25 MG PO DAILY #30 Ref 0 TAB Ashish Castro MD Dec 22, 2016 15:40
[2016-12-22] MEDS ORDERED: VENTAER INH (16:13)
== END 2016-12-22 17:08 | disposition home or self-care (01) | DRG 812 ==
LOC: NEPE 17:02 → NEDA 19:00 → OBSVTOIN 19:25 → N04B 21:51
PROVIDERS: ADMIT Hospitalist; ATTEND Hospitalist
PROC: 30233N1 Transfusion of Nonautologous Red Blood Cells into Peripheral Vein, Percutaneous Approach (ICD-10-PCS; principal; 2016-12-19)
PROC: 0DB68ZX Excision of Stomach, Via Natural or Artificial Opening Endoscopic, Diagnostic (ICD-10-PCS; 2016-12-22)
PROC: 0DB38ZX Excision of Lower Esophagus, Via Natural or Artificial Opening Endoscopic, Diagnostic (ICD-10-PCS; 2016-12-22)
PROC: 0DJD8ZZ Inspection of Lower Intestinal Tract, Via Natural or Artificial Opening Endoscopic (ICD-10-PCS; 2016-12-22)
PROC: 0DB98ZX Excision of Duodenum, Via Natural or Artificial Opening Endoscopic, Diagnostic (ICD-10-PCS; 2016-12-22 13:25)
DX: D50.0 Iron deficiency anemia secondary to blood loss (chronic) (principal); L03.116 Cellulitis of left lower limb; N39.0 Urinary tract infection, site not specified; K44.9 Diaphragmatic hernia without obstruction or gangrene; I10 Essential (primary) hypertension; N28.9 Disorder of kidney and ureter, unspecified; K29.70 Gastritis, unspecified, without bleeding; K22.70 Barrett's esophagus without dysplasia; K20.9 Esophagitis, unspecified; K57.30 Diverticulosis of large intestine without perforation or abscess without bleeding; K64.8 Other hemorrhoids
CPT/HCPCS: 36430; 80048; 80053; 81001; 82728; 83540; 83550; 85025; 85027; 86850; 86900; 86901; 86920; 87086; 88305; 88312; 94664; C9113; J0696; J1200; J1940; J7050; J7613; P9016

== ENCOUNTER 2017-01-29 16:27 | Inpatient (IN) | payer MEDICARE, BC ==
[~2017-01-29] VITALS: Ht 162.6 cm; Wt 111.2 kg
[2017-01-29] VITALS (8 sets, daily range): BP systolic 139–189; BP diastolic 72–93; PULSE 87–109; RESP 16–20; TEMP 98–98.7; O2SAT 96–98
[~2017-01-29 16:27] MED LIST changes: -CEPH-460 PO; +VENTAER INH
--- NOTE | 2017-01-29 16:38 | PD ---
Physical Exam Date Seen by Provider: Jan 29, 2017 Time Seen by Provider: 16:35 Narrative 82 YOWF C/O LOW HGB OF 5. SENT BY DR GREGORIO FOR EVAL. POS SOD AND WEAK.. H/O ANEMIA HAD RECENT UPPER AND LOWER GI EVAL. VS NOTED WAITING FOR BED PLACEMENT Data Data Last Documented VS Vital Signs Date Time Temp Pulse Resp B/P (MAP) Pulse Ox O2 Delivery O2 Flow Rate FiO2 01/29/17 16:28 98.7 98 18 174/80 (111) 96 Room Air [facility] Medical Record Reviewed: No Supervised Visit with BETO: Yes Aleksandar Jeter Jan 29, 2017 16:38
[2017-01-29] MEDS ORDERED: SODIUM CHLOR 0.9% 250 ML INJ 250 ML IV ONE (17:00)
[2017-01-29 17:29] LABS: APTT (PATIENT) 21.5 SEC (24.3-30.1); PROTHROMBIN TIME - PATIENT 10.7 SEC (9.8-11.6)
[2017-01-29 17:30] LABS: AUTOMATED NEUTROPHIL # 11.3 TH/MM3 (1.8-7.7); BASOPHIL # 0.1 TH/MM3 (0-0.2); BASOPHIL % 0.4 % (0.0-2.0); EOSINOPHIL # 0.1 TH/MM3 (0-0.4); EOSINOPHIL % 0.9 % (0.0-4.0); LYMPH % 6.7 % (9.0-44.0); LYMPHOCYTE # 0.9 TH/MM3 (1.0-4.8); MEAN CORPUSCULAR HEMOGLOBIN 27.8 PG (27.0-34.0); MEAN CORPUSCULAR HGB CONC 30.6 % (32.0-36.0); MONO % 8.5 % (0.0-8.0); NEUT % 83.5 % (16.0-70.0); PLATELET COUNT 411 TH/MM3 (150-450); RED BLOOD COUNT 1.99 MIL/MM3 (4.00-5.30); RED CELL DISTRIBUTION WIDTH 21.9 % (11.6-17.2); WHITE BLOOD COUNT 13.6 TH/MM3 (4.0-11.0)
[2017-01-29 17:40] LABS: HEMATOCRIT 18.1 % (35.0-46.0); HEMO FLAGS DIFF FINAL
[2017-01-29 17:52] LABS: ALT (GPT) 24 U/L (10-53); ANION GAP 9 MEQ/L (5-15); AST (GOT) 18 U/L (15-37); BICARBONATE 23.3 MEQ/L (21.0-32.0); BLOOD UREA NITROGEN 51 MG/DL (7-18); CHLORIDE 109 MEQ/L (98-107); GLOMERULAR FILTRATION RATE 28 ML/MIN (>89); MAGNESIUM 2.3 MG/DL (1.5-2.5); POTASSIUM 4.9 MEQ/L (3.5-5.1); SODIUM (NA) 141 MEQ/L (136-145)
[2017-01-29 18:01] LABS: ALKALINE PHOSPHATASE 72 U/L (45-117); TOTAL BILIRUBIN ADULT 0.2 MG/DL (0.2-1.0)
--- NOTE | 2017-01-29 18:08 | PD ---
HPI Chief Complaint: Abnormal Results Time Seen by Provider: 16:48 Travel History International Travel<30 days: No Contact w/Intl Traveler<30days: No Traveled to known affect area: No History of Present Illness HPI 82-year-old female that presents to the ED for evaluation of low hemoglobin. Patient had blood work yesterday and today got results that her hemoglobin was low. Patient was sent by Dr. Roberson here. Patient lives at an assisted living facility. She denies any complaints other than having for the past 2 days shortness of breath as well as weakness and tiredness. Per patient she feels like she is morbidly when she ambulates. She has a chest pain. She has had palpitations in the past. Patient she was seen here in November and had a full GI workup that showed no sign of acute disease. Patient denies any blood in her stool. She is to post to follow with Dr. Mckeon for hematology but has not been able to follow-up since been discharged. No abdominal pain. No urinary symptoms. No pain. Symptoms of weakness and tiredness having ongoing for about a couple of days. PFSH Past Medical History Anemia: Yes Arthritis: Yes (Osteoarthritis) Asthma: No Heart Rhythm Problems: No Cancer: No Cardiovascular Problems: Yes High Cholesterol: No Chest Pain: No Congestive Heart Failure: No (PT DENIES) COPD: No Diabetes: Yes (BORDERLINE) Diminished Hearing: No Endocrine: No Gastrointestinal Disorders: No Genitourinary: No Hiatal Hernia: Yes Hypertension: Yes Immune Disorder: No Musculoskeletal: Yes (BILAT. HIP REPLACEMENTS) Neurologic: No Psychiatric: No Reproductive: No Respiratory: Yes Sleep Apnea: Yes (PT STATES SHE SOMETIMES USES CPAP AT NIGHT) Thyroid Disease: No ?: Not Past Surgical History Abdominal Surgery: Yes (gall bladder, appendectomy) AICD: No Appendectomy: Yes Arteriovenous Shunt: No Cardiac Surgery: No Cholecystectomy: Yes Ear Surgery: No Endocrine Surgery: No Eye Surgery: No Genitourinary Surgery: No Gynecologic Surgery: Yes (Lumpectomy - unsure of which breast ) Hysterectomy: Yes Insulin Pump: No Joint Replacement: Yes (BILATERAL HIPS, knee) Oral Surgery: No Pacemaker: No Thoracic Surgery: No Other Surgery: Yes Social History Alcohol Use: No Tobacco Use: No Substance Use: No Allergies-Medications (Allergen,Severity, Reaction): Coded Allergies: amlodipine (Unverified Allergy, Unknown, SWELLING, 01/06/17) benazepril (Unverified Allergy, Unknown, SWELLING, 01/06/17) Reported Meds & Prescriptions Reported Meds & Active Scripts Active Ventolin Hfa 18 GM Inh (Albuterol Sulfate) 90 Mcg/Act Aer 1 Puff INH Q6HR PRN Reported Multiple Vitamin 1 Tab 1 Tab PO DAILY Vitamin D3 (Cholecalciferol) Unknown Strength Cap 1 Cap PO DAILY Fish Oil ([place]-3 Fatty Acids) Unknown Strength Capsule 1 Cap PO DAILY Ativan (Lorazepam) 0.5 Mg Tab 0.5 Mg PO BID Rapid B-12 Energy Inh (Cyanocobalamin) 200 Mcg/[place] 1 Spr INH DAILY Metoprolol Tartrate 50 Mg Tab 50 Mg PO DAILY Review of Systems Except as stated in HPI: all other systems reviewed are Neg Physical Exam Narrative GENERAL: SKIN: Warm and dry. HEAD: Atraumatic. Normocephalic. EYES: Pupils equal and round. No scleral icterus. No injection or drainage. ENT: No nasal bleeding or discharge. Mucous membranes pink and moist. Tongue is midline. No uvula deviation. NECK: Trachea midline. No JVD. CARDIOVASCULAR: Regular rate and rhythm. No murmurs, S3, S4. RESPIRATORY: No accessory muscle use. Clear to auscultation. Breath sounds equal bilaterally. GASTROINTESTINAL: Abdomen soft, non-tender, nondistended. Hepatic and splenic margins not palpable. Rectal exam revealed no sign of hemorrhoids or active bleeding. Patient does have dark stool noted. MUSCULOSKELETAL: Extremities without clubbing, cyanosis, or edema. No obvious deformities. Full range of motion of the upper and lower extremities bilaterally. 2+ pulses bilaterally. NEUROLOGICAL: Awake and alert. No obvious cranial nerve deficits. Motor grossly within normal limits. Five out of 5 muscle strength in the arms and legs. Normal speech. PSYCHIATRIC: Appropriate mood and affect; insight and judgment normal. Data Data Last Documented VS Vital Signs Date Time Temp Pulse Resp B/P (MAP) Pulse Ox O2 Delivery O2 Flow Rate FiO2 01/29/17 18:52 98.0 89 16 148/74 98 01/29/17 17:15 Room Air Orders Orders Type And Screen (01/29/17 16:46) Complete Blood Count With Diff (01/29/17 16:46) Comprehensive Metabolic Panel (01/29/17 16:46) Prothrombin Time / Inr (Pt) (01/29/17 16:46) Act Partial Throm Time (Ptt) (01/29/17 16:46) Magnesium (Mg) (01/29/17 16:46) Thyroid Stimulating Hormone (01/29/17 16:46) Iv Access Insert/Monitor (01/29/17 16:46) Ecg Monitoring (01/29/17 16:46) Oximetry (01/29/17 16:46) Red Blood Cells (Rbc) (01/29/17 16:57) Blood Product Administration (01/29/17 16:57) Sodium Chlor 0.9% 250 Ml Inj (Ns 250 Ml (01/29/17 17:00) Pantoprazole Inj (Protonix Inj) (01/29/17 18:15) Pantoprazole Inj (Protonix Inj) (01/29/17 20:00) Admit Order (Ed Use Only) (01/29/17 19:15) Labs Laboratory Tests Test 01/29/17 13:05 White Blood Count 13.6 TH/MM3 Red Blood Count 1.99 MIL/MM3 Hemoglobin 5.5 GM/DL Hematocrit 18.1 % Mean Corpuscular Volume 91.0 FL Mean Corpuscular Hemoglobin 27.8 PG Mean Corpuscular Hemoglobin Concent 30.6 % Red Cell Distribution Width 21.9 % Platelet Count 411 TH/MM3 Mean Platelet Volume 7.5 FL Neutrophils (%) (Auto) 83.5 % Lymphocytes (%) (Auto) 6.7 % Monocytes (%) (Auto) 8.5 % Eosinophils (%) (Auto) 0.9 % Basophils (%) (Auto) 0.4 % Neutrophils # (Auto) 11.3 TH/MM3 Lymphocytes # (Auto) 0.9 TH/MM3 Monocytes # (Auto) 1.2 TH/MM3 Eosinophils # (Auto) 0.1 TH/MM3 Basophils # (Auto) 0.1 TH/MM3 CBC Comment DIFF FINAL Differential Comment Prothrombin Time 10.7 SEC Prothromb Time International Ratio 1.0 RATIO Activated Partial Thromboplast Time 21.5 SEC Blood Urea Nitrogen 51 MG/DL Creatinine 1.75 MG/DL Random Glucose 100 MG/DL Total Protein 6.8 GM/DL Albumin 2.9 GM/DL Calcium Level 8.6 MG/DL Magnesium Level 2.3 MG/DL Alkaline Phosphatase 72 U/L Aspartate Amino Transf (AST/SGOT) 18 U/L Alanine Aminotransferase (ALT/SGPT) 24 U/L Total Bilirubin 0.2 MG/DL Sodium Level 141 MEQ/L Potassium Level 4.9 MEQ/L Chloride Level 109 MEQ/L Carbon Dioxide Level 23.3 MEQ/L Anion Gap 9 MEQ/L Estimat Glomerular Filtration Rate 28 ML/MIN Thyroid Stimulating Hormone 3rd Gen 2.190 uIU/ML MDM Medical Decision Making Medical Screen Exam Complete: Yes Emergency Medical Condition: Yes Medical Record Reviewed: Yes Interpretation(s) CBC & BMP Diagram 01/29/17 13:05 Total Protein 6.8, Albumin 2.9 L, Calcium Level 8.6, Magnesium Level 2.3, Alkaline Phosphatase 72, Aspartate Amino Transf (AST/SGOT) 18, Alanine Aminotransferase (ALT/SGPT) 24, Total Bilirubin 0.2 coags WNL Differential Diagnosis GI bleed versus anemia versus symptomatic anemia Narrative Course 82-year-old female that presents to the ED for evaluation of low hemoglobin. Patient was properly examined and was found to have signs and symptoms consistent with GI bleed and symptomatic anemia. Patient had blood work done yesterday did show low hemoglobin. Patient's hemoglobin here was low is well- appearing the thighs. Patient was ordered a blood transfusion here. Hemoccult was positive. Concern for GI bleed. Patient will likely require further workup for this. Recommendation is for admission. Patient agrees with this. Case was discussed in my attending Dr. Pierce who agrees with admission. Dr Lake agrees to admission to [facility] service. HemaPrompt Point of Care Internal Pos. & Neg. Controls: Passed Fecal Specimen Occult Blood: Positive Diagnosis Primary Impression: Anemia Qualified Codes: D64.9 - Anemia, unspecified Additional Impression: GI bleed Qualified Codes: K92.2 - Gastrointestinal hemorrhage, unspecified Admitting Information Admitting Physician Requests: Admit Sabino Kaur Jan 29, 2017 18:08
[2017-01-29] MEDS ORDERED: PANTOPRAZOLE INJ 80 MG in SODIUM CHLORIDE 0.9% INJ 35 ML IV ONE (18:15)
[2017-01-29] MEDS ORDERED: VITA100036 PO (19:11)
[2017-01-29] MEDS ORDERED: MULTTAB67 PO (19:11)
[2017-01-29] MEDS ORDERED: [UNRECOGNIZED DRUG - OTHER] INH (19:11)
[2017-01-29] MEDS ORDERED: METO50TA PO (19:11)
[2017-01-29] MEDS ORDERED: LORA-392 PO (19:11)
[2017-01-29] MEDS ORDERED: OMEG300C5 PO (19:11)
[2017-01-29] MEDS ORDERED: SODIUM CHLORIDE 0.9% FLUSH 10 ML FLUSH IV FLUSH PRN (20:15)
[2017-01-29] MEDS ORDERED: NALOXONE HCL 0.4 MG/ML AMP IV PRN (20:15)
[2017-01-29] MEDS: PANTOPRAZOLE INJ 80 MG in SODIUM CHLORIDE 0.9% INJ 100 ML IV SCH (20:17)
[2017-01-29] MEDS: SODIUM CHLORIDE 0.9% FLUSH 10 ML FLUSH IV FLUSH SCH (21:00)
--- NOTE | 2017-01-29 21:46 | HHI.HP ---
HPI [facility] Primary Care Physician Jason Roberson MD Admission Diagnosis symptomatic anemia, Gi bleed Diagnoses: (1) Anemia (2) GI bleed Chief Complaint: Low hemoglobin checked as an outpatient Travel History International Travel<30 Days: No Contact w/Intl Traveler <30 Da: No Traveled to Known Affected Are: No History of Present Illness Written by Betina Salas, acting as scribe for Dr. Lake on 01/29/17 at 21:43. The patient came in because hgb was 5 instead of 12 at independent living facility at [facility] and she was instructed to come into ED. + Hemoccult in ED. Patient reports she is very short of breath and has had significant fatigue. She got very dizzy when getting out of the pool (water aerobics) today. All stools are black with green in them; takes OTC iron. Denies abdominal pain. Denies burning with urination or pain with urination. She used to get iron infusions every 2 months previously - she would like to see Dr. Mckeon - she has an outpatient appointment on February 19 as recommended by her PCP Dr. Roberson. Patient was seen by Dr. Ashby for GI bleed in November 2016 and had colonoscopy and panendoscopy. Denies chest pain, red stool, vaginal bleeding, hematuria, not on any blood thinners. She reports sharp pain in hip and right scapula area a couple of times. Review of Systems Except as stated in HPI: all other systems reviewed are Neg Past Family Social History Past Medical History Hypertension DANNI Borderline diabetes - diet controlled Neuropathy UTIs Spinal Stenosis Denies CAD, CHF, COPD, emphysema, asthma, liver problems, kidney problems, DVT, PE, CVA, seizures, thyroid problems, or cancer . Past Surgical History Cholecystectomy Appendectomy Breast lumpectomy - right Hysterectomy Bilateral hip replacement Left knee replacement . Reported Medications Reported Meds & Active Scripts Active Ventolin Hfa 18 GM Inh (Albuterol Sulfate) 90 Mcg/Act Aer 1 Puff INH Q6HR PRN Reported Multiple Vitamin 1 Tab 1 Tab PO DAILY Vitamin D3 (Cholecalciferol) Unknown Strength Cap 1 Cap PO DAILY Fish Oil ([place]-3 Fatty Acids) Unknown Strength Capsule 1 Cap PO DAILY Ativan (Lorazepam) 0.5 Mg Tab 0.5 Mg PO BID Rapid B-12 Energy Inh (Cyanocobalamin) 200 Mcg/[place] 1 Spr INH DAILY Metoprolol Tartrate 50 Mg Tab 50 Mg PO DAILY . Allergies: Coded Allergies: amlodipine (Unverified Allergy, Unknown, SWELLING, 01/06/17) benazepril (Unverified Allergy, Unknown, SWELLING, 01/06/17) Active Ordered Medications Current Medications Sodium Chloride 250 ml @ 15 mls/hr ONCE ONCE IV Last administered on 20:18; Start 01/29/17 at 17:00; Stop 01/30/17 at 09:39 Pantoprazole Sodium 80 mg/ Sodium Chloride 35 ml @ 420 mls/hr BOLUS ONCE IV Last administered on 01/29/17 20:16; Start 01/29/17 at 18:15; Stop 01/29/17 at 18: 19; Status DC Pantoprazole Sodium 80 mg/ Sodium Chloride 100 ml @ 10 mls/hr CONTINUOUS IV Last administered on 01/29/17 20:17; Start 01/29/17 at 20:00 Sodium Chloride (NS Flush) 2 ml UNSCH PRN IV FLUSH FLUSH AFTER USING IV ACCESS ; Start 01/29/17 at 20:15 Sodium Chloride (NS Flush) 2 ml BID IV FLUSH ; Start 01/29/17 at 21:00 Naloxone HCl (Narcan Inj) 0.4 mg UNSCH PRN IV SEE LABEL COMMENTS; Start at 20:15 . Family History Sister with hypoglycemia Another sister with diabetes mellitus Social History Tobacco: denies ever smoking Alcohol: denies Lives at [facility] at independent living facility . Physical Exam Vital Signs Vital Signs Date Time Temp Pulse Resp B/P (MAP) Pulse Ox O2 Delivery O2 Flow Rate FiO2 01/29/17 20:23 94 20 189/88 (121) 96 Room Air 01/29/17 18:52 98.0 89 16 148/74 98 01/29/17 18:30 98.2 92 16 162/75 97 01/29/17 17:15 97 Room Air 01/29/17 17:15 87 16 170/72 (104) 97 Room Air 01/29/17 16:28 98.7 98 18 174/80 (111) 96 Room Air Physical Exam GENERAL: This is a pale, pleasant, cognitively sharp elderly female patient, in no apparent distress. SKIN: No rashes. Cool and dry. HEAD: Atraumatic. Normocephalic. No temporal or scalp tenderness. EYES: No scleral icterus. No injection or drainage. ENT: Nose without bleeding, purulent drainage or septal hematoma. NECK: Trachea midline. No JVD. CARDIOVASCULAR: Regular rate and rhythm without murmurs, gallops, or rubs. Ankle edema + 2. RESPIRATORY: Clear to auscultation. Breath sounds equal bilaterally. No wheezes , rales, or rhonchi. GASTROINTESTINAL: Abdomen soft, non-tender, +anasarca. MUSCULOSKELETAL: Extremities without clubbing, cyanosis. No calf tenderness. NEUROLOGICAL: Awake and alert. Motor and sensory grossly within normal limits. . Laboratory Laboratory Tests Test 01/29/17 13:05 White Blood Count 13.6 Red Blood Count 1.99 Hemoglobin 5.5 Hematocrit 18.1 Mean Corpuscular Volume 91.0 Mean Corpuscular Hemoglobin 27.8 Mean Corpuscular Hemoglobin Concent 30.6 Red Cell Distribution Width 21.9 Platelet Count 411 Mean Platelet Volume 7.5 Neutrophils (%) (Auto) 83.5 Lymphocytes (%) (Auto) 6.7 Monocytes (%) (Auto) 8.5 Eosinophils (%) (Auto) 0.9 Basophils (%) (Auto) 0.4 Neutrophils # (Auto) 11.3 Lymphocytes # (Auto) 0.9 Monocytes # (Auto) 1.2 Eosinophils # (Auto) 0.1 Basophils # (Auto) 0.1 CBC Comment DIFF FINAL Differential Comment Prothrombin Time 10.7 Prothromb Time International Ratio 1.0 Activated Partial Thromboplast Time 21.5 Blood Urea Nitrogen 51 Creatinine 1.75 Random Glucose 100 Total Protein 6.8 Albumin 2.9 Calcium Level 8.6 Magnesium Level 2.3 Alkaline Phosphatase 72 Aspartate Amino Transf (AST/SGOT) 18 Alanine Aminotransferase (ALT/SGPT) 24 Total Bilirubin 0.2 Sodium Level 141 Potassium Level 4.9 Chloride Level 109 Carbon Dioxide Level 23.3 Anion Gap 9 Estimat Glomerular Filtration Rate 28 Thyroid Stimulating Hormone 3rd Gen 2.190 Result Diagram: 01/29/17 1305 01/29/17 1305 Caprini VTE Risk Assessment Caprini VTE Risk Assessment: Mod/High Risk (score >= 2) VTE Pharm Contraindication: gi bleeding, hgb 5.5 Caprini Risk Assessment Model Point Value = 1 Point Value = 2 Point Value = 3 Point Value = 5 Age 41-60 Minor surgery BMI > 25 kg/m2 Swollen legs Varicose veins or History of unexplained or recurrent spontaneous Oral contraceptives or hormone replacement Sepsis (< 1 month) Serious lung disease, including pneumonia (< 1 month) Abnormal pulmonary function Acute myocardial infarction Congestive heart failure (< 1 month) History of inflammatory bowel disease Medical patient at bed rest Age 61-74 Arthroscopic surgery Major open surgery (> 45 min) Laparoscopic surgery (> 45 min) Malignancy Confined to bed (> 72 hours) Immobilizing plaster cast Central venous access Age >= 75 History of VTE Family history of VTE Factor V Leiden Prothrombin 52665H Lupus anticoagulant Anticardiolipin antibodies Elevated serum homocysteine Heparin-induced thrombocytopenia Other congenital or acquired thrombophilia Stroke (< 1 month) Elective arthroplasty Hip, pelvis, or leg fracture Acute spinal cord injury (< 1 month) Prophylaxis Regimen Total Risk Factor Score Risk Level Prophylaxis Regimen 0-1 Low Early ambulation 2 Moderate Order ONE of the following: *Sequential Compression Device (SCD) *Heparin 5000 units SQ BID 3-4 Higher Order ONE of the following medications: *Heparin 5000 units SQ TID *Enoxaparin/Lovenox 40 mg SQ daily (WT < 150 kg, CrCl > 30 mL/min) *Enoxaparin/Lovenox 30 mg SQ daily (WT < 150 kg, CrCl > 10-29 mL/min) *Enoxaparin/Lovenox 30 mg SQ BID (WT < 150 kg, CrCl > 30 mL/min) AND/OR *Sequential Compression Device (SCD) 5 or more Highest Order ONE of the following medications: *Heparin 5000 units SQ TID (Preferred with Epidurals) *Enoxaparin/Lovenox 40 mg SQ daily (WT < 150 kg, CrCl > 30 mL/min) *Enoxaparin/Lovenox 30 mg SQ daily (WT < 150 kg, CrCl > 10-29 mL/min) *Enoxaparin/Lovenox 30 mg SQ BID (WT < 150 kg, CrCl > 30 mL/min) AND *Sequential Compression Device (SCD) Assessment and Plan Problem List: (1) GI bleed ICD Code: K92.2 - Gastrointestinal hemorrhage, unspecified Status: Acute (2) Anemia ICD Code: D64.9 - Anemia, unspecified Status: Acute Assessment and Plan 82 y/o female with a history of GI bleed and anemia who presented to ED following outpatient lab testing showing hemoglobin of 5: GI Bleed Anemia - Hgb - 5.5/ HCT - 18.1; Hemoccult positive in ED - blood transfusion in progress - consult gastroenterology - Consult Dr. Mckeon - preferred healthcare management consultant - has outpatient appt 02/19 scheduled - continuous cardiac telemetry to monitor for cardiac arrhythmias - will start heart healthy diet Osteoarthritis - PRN Tylenol 650 mg q6h p.o. pain - consult physical therapy to prevent deconditioning Peripheral edema - check BNP for CHF - Echocardiogram to evaluate cardiac structure and function Chronic Kidney disease, stage IV - contributes to anemia - repeat BMP in a.m. and follow results - avoid nephrotoxins Anxiety - Lorazepam 0.5 mg BID PRN for anxiety DVT prophylaxis - SCDs/TEDs . This note was transcribed by amandaibadrienne [Betina Salas]. I, Dr. Arturo Lake personally performed the history, physical exam, and medical decision making; and confirmed the accuracy of the information in the transcribed note. Authenticated by Dr. Arturo Lake on 01/29/17 at 21:43. Discussed Condition With ER physician and patient . Physician Certification 2 Midnight Certification Type: Admission for Inpatient Services Order for Inpatient Services The services are ordered in accordance with Medicare regulations or non- Medicare payer requirements, as applicable. In the case of services not specified as inpatient-only, they are appropriately provided as inpatient services in accordance with the 2-midnight benchmark. Estimated LOS (days): 3 days is the estimated time the patient will need to remain in the hospital, assuming treatment plan goals are met and no additional complications. Post-Hospital Plan: Not yet determined Problem Qualifiers (1) Anemia: Qualified Codes: D64.9 - Anemia, unspecified (2) GI bleed: Qualified Codes: K92.2 - Gastrointestinal hemorrhage, unspecified Betina Salas Jan 29, 2017 21:46 Arturo Lake MD Feb 01, 2017 22:51
[2017-01-30] VITALS (14 sets, daily range): BP systolic 136–238; BP diastolic 72–108; PULSE 92–115; RESP 18–23; TEMP 98.1–98.5; O2SAT 65–100
[2017-01-30] MEDS: ACETAMINOPHEN 325 MG TAB PO PRN ×2 (00:20→20:37)
[2017-01-30] MEDS: RESP: ALBUTEROL 2.5 MG/IPRATROPIUM 0.5 MG NEB (PRN) NEB ×2 (02:07→11:06)
[2017-01-30] MEDS: PANTOPRAZOLE INJ 80 MG in SODIUM CHLORIDE 0.9% INJ 100 ML IV SCH (02:47)
--- NOTE | 2017-01-30 08:11 | MB ---
cc: WENDI GARCÍA M.D. DATE OF CONSULTATION 01/30/2017 CHIEF COMPLAINT 1. Anemia 2. History of iron deficiency. 3. History of B12 deficiency. PATIENT PROFILE The patient is an 82-year white female. She has been since 2002. She was born in [place]. She has lived in [place] since 2016. She is originally from [place]. She has two children both women. She has a daughter who lives in [place] and another daughter who lives in [place], [place]. The patient does not smoke. Alcohol intake is minimal. She lives in an independent living facility called [facility]. In the past, she had worked in the banking industry in commercial lending. HISTORY OF PRESENT ILLNESS The patient is an 82-year-old female who was residing in [place] recently. About a year and half ago, she was discovered to have anemia. She tells me that her doctor found that she had iron deficiency anemia. She underwent a GI evaluation. She did not have a pill cam, but the evaluation which she states included upper and lower endoscopy was negative. She was also told that she had B12 deficiency. She was given IV iron infusions and also given intermittent B12. She has not had any iron infusions for the past six months. She moved to this area and is now living in [facility]. Her immediate problem dates back to a hospitalization on 11/24/2016 when she was found to be anemic with a hemoglobin of 6.2, white count 14,000, platelets 476,000. The MCV was 82. The stool was guaiac positive. She was given two units of packed cells and returned to the snf. She was hospitalized on December 19 again due to worsening anemia. On 12/02, her hemoglobin was 8.5. On 12/19, the hemoglobin had fallen to 6.2, hematocrit 18, white count 10,000, platelets 416,000. She was again transfused packed cells. On 12/22/2016, she had a colonoscopy. She was found to have diverticulosis and internal hemorrhoids. There was no obvious bleeding source. She had an upper endoscopy with biopsy on 12/22/2016. She was found to have gastritis involving the antrum and a large hiatal hernia. A biopsy of the gastric mucosa showed chronic gastritis. Biopsy of the GE mucosa showed chronic inflammatory changes consistent with reflux. She was to see me as an outpatient in late January. She became weak and almost passed out. She was again found to be anemic and is admitted to the hospital on 01/29, hemoglobin 5.5, hematocrit 18, white count 13,000, platelets 411,000. Stools are again heme-positive. On 01/29/2017, a CMP was done and is notable for a creatinine of 1.75. She apparently has some degree of chronic renal failure. On November 24, the creatinine was 2.0. She has had iron studies on 12/19, the serum ferritin was 14, iron 17, TIBC 370, and saturation of 4%. She has noted that her stools have been black. She takes an nnxj-lqg-gjkjpos B12 tablet which is sublingual and she takes an oral chub-xzr-ewrdkpu iron tablet which she believes might be 300 mg. The only other medication that she is taking is metoprolol. There has been no major change in her health except for the fact that she is weak, short of breath and lightheaded in association with her anemia. She has chronic lower back pain when she stands. PAST SURGICAL HISTORY 1. Abdominal hysterectomy 1985 due to heavy menstrual bleeding 2. Left knee replacement in 1998 3. Right hip replacement 2000 4. Left hip replacement 2005 PAST MEDICAL HISTORY 1. Hypertension 2. Osteoarthritis 3. Spinal stenosis 4. Recurrent anemia with history of iron deficiency and possibly B12 deficiency. MEDICATIONS PRIOR TO ADMISSION 1. Metoprolol 2. B12 ALLERGIES AMLODIPINE AND BENAZEPRIL FAMILY HISTORY Noncontributory REVIEW OF SYSTEMS No change in vision or hearing. No chest pain or palpitations. RESPIRATORY: Short OF breath with minimal exertion. GI: Dark black stools. : No dysuria or frequency. MUSCULOSKELETAL: Lower back pain when she stands. NEUROLOGIC: No focal weakness. PHYSICAL EXAM This is a pleasant bright female. She is slightly short of breath when she moves about. VITAL SIGNS: Blood pressure is 130/80, respiratory rate 20, pulse 100, afebrile. O2 sat 97%. HEAD: Normocephalic. EYES, EARS, NOSE AND THROAT: Sclerae and conjunctivae are normal. Oropharynx is unremarkable. BREASTS: Pendulous without masses. HEART: Regular rhythm. LUNGS: Clear. ABDOMEN: Soft, obese. No hepatosplenomegaly. EXTREMITIES: Trace edema. MUSCULOSKELETAL: No bone pain. NEUROLOGIC: No focal weakness. RECTAL: Stool is black. ASSESSMENT The patient is an 82-year female who has recurrent anemia. She has iron deficiency. I am surprised that her MCV is not smaller, but I suspect this is due to the fact that she is having primarily acute bleeding rather than a chronic slow bleed. This would explain the rapid fall in her hemoglobin/hematocrit. She also has a history of B12 deficiency, but I do not have documentation. RECOMMENDATIONS 1. Given that she is acutely bleeding and elderly, I would recommend transfusing her to a hemoglobin of 10. 2. I will make arrangements for an IV iron infusion as she has recurrent GI bleeding. She has been taking oral iron and this has clearly not been adequate to keep up with the blood loss. 3. I will order a B12, folic acid, serum protein electrophoresis and serum immunoelectrophoresis, but based on her current presentation, I suspect that her anemia is due to blood loss. Once her hemoglobin is stable and she has received iron, she can return to the snf unless further GI evaluation is being considered. She may benefit from a pill endoscopy, but to date, she has not been willing to pursue this. She will require frequent CBC and platelet counts and I can follow her in an outpatient setting as well and arrange for transfusions and further iron if necessary. If this does not solve the problem, I would do a bone marrow aspirate and biopsy, but at the moment as indicated above, I suspect this is due to GI blood loss. MD SORIN Lazaro/TARIQ /7:16 AM /7:44 AM GUSTABO
[2017-01-30] MEDS: SODIUM CHLORIDE 0.9% FLUSH 10 ML FLUSH IV FLUSH SCH ×2 (09:00→20:37)
[2017-01-30] MEDS ORDERED: CHOLECALCIFEROL PO SCH (09:00)
[2017-01-30] MEDS: METOPROLOL TARTRATE 25 MG TAB PO SCH (10:13)
[2017-01-30] MEDS: MULTIVITAMIN TAB PO SCH (10:13)
[2017-01-30 11:28] LABS: BLOOD GAS BASE EXCESS -2.9 mmol/L (-2-2); BLOOD GAS CARBOXYHEMOGLOBIN 2.5 % (0-4); BLOOD GAS HCO3 22 mmol/L (22-26); BLOOD GAS O2 HGB SATURATION 95 % (90-100); BLOOD GAS OXYGEN CONTENT 11.7 Vol % (12.0-20.0); BLOOD GAS PCO2 38 mmHg (38-42); BLOOD GAS PO2 107 mmHg (61-120); BLOOD GAS TOTAL HGB 8.6 G/DL (12.0-16.0); CRITICAL VALUE NO; DRAW SITE RT RADIAL; LITER FLOW 6 L/M; NUMBER OF ARTERIAL PUNCTURES 1; OXYGEN DEVICE NASAL CANNULA; STAT YES; TEMP CORR TO 98.6; ULNAR PULSE PRESENT
[2017-01-30 11:39] LABS: AUTOMATED NEUTROPHIL # 13.2 TH/MM3 (1.8-7.7); BASOPHIL # 0.1 TH/MM3 (0-0.2); BASOPHIL % 0.6 % (0.0-2.0); EOSINOPHIL # 0.1 TH/MM3 (0-0.4); EOSINOPHIL % 0.5 % (0.0-4.0); HEMATOCRIT 26.4 % (35.0-46.0); HEMO FLAGS DIFF FINAL; LYMPH % 4.1 % (9.0-44.0); LYMPHOCYTE # 0.6 TH/MM3 (1.0-4.8); MEAN CELL VOLUME 89.6 FL (80.0-100.0); MEAN CORPUSCULAR HEMOGLOBIN 28.5 PG (27.0-34.0); MEAN CORPUSCULAR HGB CONC 31.8 % (32.0-36.0); MONO % 7.1 % (0.0-8.0); NEUT % 87.7 % (16.0-70.0); PLATELET COUNT 371 TH/MM3 (150-450); RED BLOOD COUNT 2.95 MIL/MM3 (4.00-5.30); RED CELL DISTRIBUTION WIDTH 18.3 % (11.6-17.2); WHITE BLOOD COUNT 15.1 TH/MM3 (4.0-11.0)
[2017-01-30 12:00] LABS: RETIC % 4.8 % (0.4-3.0); REVIEW FLAG FINAL
[2017-01-30 12:06] LABS: BICARBONATE 22.9 MEQ/L (21.0-32.0); POTASSIUM 4.6 MEQ/L (3.5-5.1)
--- NOTE | 2017-01-30 12:33 | RADRPT ---
EXAM DATE/TIME: 01/30/2017 11:23 [facility] COMPARISON: No previous studies available for comparison. INDICATIONS : Short of breath. MEDICAL HISTORY : None. SURGICAL HISTORY : None. ENCOUNTER: Initial ACUITY: 1 day PAIN SCORE: 0/10 LOCATION: Bilateral chest FINDINGS: Bibasilar and perihilar mixed interstitial and alveolar process is present. Heart and mediastinum are unremarkable for technique. CONCLUSION: Probable CHF, however pneumonia is difficult to exclude at this time and followup is recommended. Lauren Santizo MD on January 30, 2017 at 12:10 Board Certified Radiologist. This report was verified electronically.
[2017-01-30 12:39] LABS: IMMUNOGLOBULIN A 216 MG/DL (96-532); IMMUNOGLOBULIN G 639 MG/DL (650-1610); IMMUNOGLOBULIN M 94 MG/DL (39-238); KAPPA LAMBDA RATIO 1.21 (1.57-3.93); LAMBDA LIGHT CHAIN 128 MG/DL (90-210); TOTAL PROTEIN SPE 6.8 GM/DL (6.0-7.6)
[2017-01-30] MEDS ORDERED: IRON DEXTRAN INJ 100 MG in SODIUM CHLORIDE 0.9% INJ 100 ML IV ONE (13:30)
[2017-01-30] MEDS ORDERED: IRON DEXTRAN INJ 25 MG in SODIUM CHLORIDE 0.9% INJ 50 ML IV ONE (13:30)
[2017-01-30] MEDS: FUROSEMIDE 20 MG/2 ML VIAL IV PUSH SCH ×2 (13:52→18:16)
[2017-01-30] MEDS ORDERED: FAMOTIDINE 20 MG/2 ML VIAL IV PUSH ONE (14:00)
[2017-01-30] MEDS ORDERED: SODIUM CHLORIDE 0.9% IV ONE (14:00)
[2017-01-30] MEDS ORDERED: DIPHENHYDRAMINE IV ONE (14:00)
[2017-01-30] MEDS ORDERED: DEXAMETHASONE INJ 20 MG in SODIUM CHLORIDE 0.9% INJ 50 ML IV ONE (14:00)
--- NOTE | 2017-01-30 14:14 | HHI.PR ---
Subjective Remarks Follow-up for symptomatic anemia Anaya called since patient had increased shortness of breathing and required nonrebreather. This occurred while patient was trying to urinate on a bedpan. Per Blaise Nurse patient was given a nebulizer and improved drastically and was able to transition to nasal cannula. She also stated initially had wheezing but gave nebulizer and nomore wheezing. When I saw patient she stated that her breathing is fine and that she only has shortness of breathing with exertion. She denies any cough but she is coughing. Denies any upper respiratory symptoms. She remains afebrile. Deny any chest pain, palpitation, Lightheadedness or dizziness. patient stated she is doing a lot better. stat CXR amd ABG obtained. d/w patient's nurse and respiratory therapist. Objective Vitals Vital Signs Date Time Temp Pulse Resp B/P (MAP) Pulse Ox O2 Delivery O2 Flow Rate FiO2 01/30/17 12:00 98.3 92 18 156/78 (104) 100 01/30/17 11:23 98 6.00 01/30/17 08:00 98.4 105 18 138/74 (95) 91 01/30/17 04:00 98.2 101 20 136/81 (99) 97 01/30/17 04:00 98.2 101 20 136/81 (99) 97 01/30/17 02:08 97 Nasal Cannula 2.00 01/30/17 01:51 Nasal Cannula 2.00 01/30/17 00:00 98.5 105 18 151/72 (98) 94 01/29/17 22:40 98.2 109 19 139/93 (108) 96 01/29/17 22:19 97 01/29/17 22:17 01/29/17 22:01 93 18 173/81 (111) 97 Room Air 01/29/17 20:23 94 20 189/88 (121) 96 Room Air 01/29/17 18:52 98.0 89 16 148/74 98 01/29/17 18:30 98.2 92 16 162/75 97 01/29/17 17:15 97 Room Air 01/29/17 17:15 87 16 170/72 (104) 97 Room Air 01/29/17 16:28 98.7 98 18 174/80 (111) 96 Room Air I/O 901/29/17 01/29/17 01/30/17 01/30/17 01/30/17 07:00 15:00 23:00 07:00 15:00 23:00 Intake Total 440 ml 530 ml Balance 440 ml 530 ml Intake Oral 120 ml IV Total 35 ml Packed Cells 400 ml 400 ml Blood Product IV Normal Saline Flush 5 ml 10 ml # Voids 3 Result Diagram: 01/30/17 1118 01/30/17 1118 Imaging Last Impressions Chest X-Ray 01/30/17 1113 Signed Impressions: Service Date/Time: Monday, January 30, 2017 11:23 - CONCLUSION: Probable CHF , however pneumonia is difficult to exclude at this time and followup is recommended. Lauren Santizo MD Objective Remarks GENERAL: in NAD CARDIOVASCULAR: Regular rate and rhythm without murmurs, gallops, or rubs. RESPIRATORY: Breath sounds equal bilaterally but distant lung sounds. No accessory muscle use. GASTROINTESTINAL: Abdomen soft, non-tender, nondistended. MUSCULOSKELETAL: No cyanosis, or edema. BACK: Nontender without obvious deformity. No CVA tenderness. Medications and IVs Current Medications Sodium Chloride 250 ml @ 15 mls/hr ONCE ONCE IV Last administered on 20:18; Start 01/29/17 at 17:00; Stop 01/30/17 at 09:39; Status DC Pantoprazole Sodium 80 mg/ Sodium Chloride 35 ml @ 420 mls/hr BOLUS ONCE IV Last administered on 01/29/17 20:16; Start 01/29/17 at 18:15; Stop 01/29/17 at 18: 19; Status DC Pantoprazole Sodium 80 mg/ Sodium Chloride 100 ml @ 10 mls/hr CONTINUOUS IV Last administered on 01/30/17 02:47; Start 01/29/17 at 20:00 Sodium Chloride (NS Flush) 2 ml UNSCH PRN IV FLUSH FLUSH AFTER USING IV ACCESS ; Start 01/29/17 at 20:15 Sodium Chloride (NS Flush) 2 ml BID IV FLUSH ; Start 01/29/17 at 21:00 Naloxone HCl (Narcan Inj) 0.4 mg UNSCH PRN IV SEE LABEL COMMENTS; Start at 20:15 Acetaminophen (Tylenol) 650 mg Q6HR PRN PO Pain > 3 Last administered on 00:20; Start 01/29/17 at 22:00 Albuterol/ Ipratropium (Duoneb Neb) 1 ampule Q4HR NEB PRN NEB SOB/WHEEZING Last administered on 01/30/17 11:06; Start 01/29/17 at 22:15 Non-Formulary Medication 1 cap DAILY PO ; Start 01/30/17 at 09:00; Stop 01/30/17 at 09:00; Status DC Multivitamins (Theragran) 1 tab DAILY PO Last administered on 01/30/17 10:13; Start 01/30/17 at 09:00 Metoprolol Tartrate (Lopressor) 25 mg DAILY PO Last administered on 01/30/17 10 :13; Start 01/30/17 at 09:00 Lorazepam (Ativan) 0.5 mg BID PRN PO ANXIETY; Start 01/29/17 at 22:15 Furosemide (Lasix Inj) 20 mg BID@09,18 IV PUSH Last administered on 01/30/17 13 :52; Start 01/30/17 at 13:00 Albuterol/ Ipratropium (Duoneb Neb) 1 ampule Q6HR WHILE AWAKE NEB NEB ; Start 01/30/17 at 14:00 Iron Dextran 25 mg/Sodium Chloride 50.5 ml @ 606 mls/hr ONCE ONCE IV ; Start 01/30/17 at 13:30; Stop 01/30/17 at 13:34; Status DC Iron Dextran 100 mg/Sodium Chloride 102 ml @ 204 mls/hr ONCE ONCE IV ; Start 01/30/17 at 13:30; Stop 01/30/17 at 13:59; Status DC Famotidine (Pepcid Inj) 20 mg ONCE ONCE IV PUSH Last administered on 01/30/17 13:54; Start 01/30/17 at 14:00; Stop 01/30/17 at 14:01; Status DC Diphenhydramine HCl 25 mg/Sodium Chloride 50.5 ml @ 202 mls/hr ONCE ONCE IV ; Start 01/30/17 at 14:00; Stop 01/30/17 at 14:14 Dexamethasone Sodium Phosphate 20 mg/Sodium Chloride 55 ml @ 220 mls/hr ONCE ONCE IV Last administered on 01/30/17 13:55; Start 01/30/17 at 14:00; Stop at 14:14 Iron Dextran 1500 mg/Sodium Chloride 1,030 ml @ 171.667 mls/hr ONCE ONCE IV ; Start 01/30/17 at 14:30; Stop 01/30/17 at 20:29 A/P Problem List: (1) GI bleed ICD Code: K92.2 - Gastrointestinal hemorrhage, unspecified Status: Acute (2) Anemia ICD Code: D64.9 - Anemia, unspecified Status: Acute Assessment and Plan 82 y/o female with a history of GI bleed and anemia who presented to ED following outpatient lab testing showing hemoglobin of 5: GI Bleed Symptomatic Anemia, patient has chronic anemia. History of GI bleed. - Hgb - 5.5/ HCT - 18.1 status post blood transfusion with 2 units packed red blood cells posttransfusion hemoglobin is 8.4. -Pending GI consult. - Dr. Mckeon consulted and recommended to transfuse patient until hemoglobin is about 10. She will be also put on IV infusion. He also place an anemic workup. -At the moment unable to transfuse patient since she became acutely hypoxic and hemoglobin is stable with no clinical findings of gross bleeding. We will need to treat respiratory failure. Once that is stable will transfuse. If she so signs of gross bleeding or hemoglobin decreasing will need to transfuse and transferred to the ICU. -Will monitor H&H every 4 hours until stabilization. Osteoarthritis - PRN Tylenol 650 mg q6h p.o. pain - consult physical therapy to prevent deconditioning Acute respiratory failure with hypoxia after transfusion -Most likely secondary to being volume overloaded. - BNP mildly elevated. Pending Echo. Chest x-ray suggests possible CHF. -Will give Lasix 20 mg IV twice a day. Strict ins and outs. Monitor creatinine and clinical status. Wean oxygen as tolerated. -Will schedule DuoNeb since high Nurse heard wheezing. At the moment I do not appreciate any wheezing. Chronic Kidney disease, stage IV - contributes to anemia - Continue to monitor. - avoid nephrotoxins Anxiety - Lorazepam 0.5 mg BID PRN for anxiety DVT prophylaxis - SCDs/TEDs Dealt with patient's nurse in regards to management. . . Problem Qualifiers (1) GI bleed: Qualified Codes: K92.2 - Gastrointestinal hemorrhage, unspecified (2) Anemia: Qualified Codes: D64.9 - Anemia, unspecified Van,Roxane Ngzoi MD Jan 30, 2017 14:14
[2017-01-30] MEDS ORDERED: SODIUM CHLOR 0.9% IV ONE (14:30)
[2017-01-30] MEDS ORDERED: IRON DEXTRAN IV ONE (14:30)
[2017-01-30] MEDS: RESP: ALBUTEROL 2.5 MG/IPRATROPIUM 0.5 MG NEB (SCH) NEB (19:16)
[2017-01-30] MEDS: LORazepam 0.5 MG TAB PO PRN (20:36)
[2017-01-31] VITALS (14 sets, daily range): BP systolic 143–179; BP diastolic 69–105; PULSE 94–112; RESP 19–22; TEMP 97.2–98.9; O2SAT 90–97
[2017-01-31 05:16] LABS: HEMATOCRIT 24.8 % (35.0-46.0); MEAN CELL VOLUME 90.6 FL (80.0-100.0); MEAN CORPUSCULAR HEMOGLOBIN 28.8 PG (27.0-34.0); MEAN CORPUSCULAR HGB CONC 31.8 % (32.0-36.0); PLATELET COUNT 337 TH/MM3 (150-450); RED BLOOD COUNT 2.74 MIL/MM3 (4.00-5.30); RED CELL DISTRIBUTION WIDTH 18.7 % (11.6-17.2); REVIEW FLAG FINAL; WHITE BLOOD COUNT 12.2 TH/MM3 (4.0-11.0)
[2017-01-31 05:49] LABS: BICARBONATE 25.8 MEQ/L (21.0-32.0); POTASSIUM 4.6 MEQ/L (3.5-5.1)
--- NOTE | 2017-01-31 06:42 | MB ---
cc: ALEXANDRA SOW M.D. DATE OF CONSULTATION 01/30/2017 DATE OF 11/18/1934 REASON FOR REFERRAL Anemia HISTORY OF PRESENT ILLNESS Thank you for the consultation for this 82-year-old lady who is known to have anemia for many years. The patient has multiple transfusions. [id number] She has been established with Dr. Ashby and she underwent upper endoscopy and a colonoscopy. According to her, this was unremarkable, but the patient was advised to have a pill cam, but she did not want to do it yet. The patient started having black stool and general fatigue and found to be anemic. She is being followed by Dr. Mckeon at this time. Currently she is getting iron transfusion, she received packed RBC's x2 yesterday. She is laying in bed comfortably. No complaints at this time. She stated that she always had black stool, but this time it is more. She had multiple GI workups which were negative for source of bleeding. PAST MEDICAL HISTORY Significant for: 1. Hypertension 2. Osteoarthritis 3. Spinal stenosis 4. Anemia 5. Possible B12 deficiency MEDICATIONS Reviewed in the chart. PAST SURGICAL HISTORY 1. Left knee replacement 2. Right hip replacement 3. Left hip replacement 4. Hysterectomy ALLERGIES AMLODIPINE AND BENADRYL FAMILY HISTORY Noncontributory REVIEW OF SYSTEMS All 12-pointsnegative except HPI and general fatigue when she came. PHYSICAL EXAMINATION A very pleasant, alert and oriented lady in no acute distress. VITAL SIGNS: Stable. HEENT: Pupils are round and reactive to light. NECK: Supple. CHEST: Clear to auscultation and proportion. CARDIAC: Regular rate and rhythm. ABDOMEN: Soft, nondistended. Positive bowel sounds. EXTREMITIES: No edema, clubbing or cyanosis at this time. NEUROLOGIC: Intact. PSYCHOLOGIC: Appropriate. LABORATORY DATA White count 15.1, hemoglobin was 5.5 on admission today is 8.9, platelet 371. INR 1.0. Liver function tests are normal, BUN 39, creatinine 1.77. ASSESSMENT/PLAN This is a pleasant 82-year-old lady who has a history of chronic anemia most likely GI source of bleeding that could be from AVM in the small bowel. The patient also may have B12 deficiency according to Dr. Mckeon so it could be multifactorial. At this point, the patient is not interested in having any procedure. She feels that she is tired and she would like to wait on any procedure for now. Meanwhile, we will continue supportive care and continue iron infusion per Dr. Mckeon' recommendation and if she changes her mind, we can do enteroscopy, otherwise we can do capsule endoscopy as an outpatient. MD DAMIÁN Calderon/TARIQ /10:39 PM /6:32 AM
[2017-01-31] MEDS: RESP: ALBUTEROL 2.5 MG/IPRATROPIUM 0.5 MG NEB (SCH) NEB ×2 (08:00→12:21)
[2017-01-31] MEDS: SODIUM CHLORIDE 0.9% FLUSH 10 ML FLUSH IV FLUSH SCH ×2 (09:00→20:19)
[2017-01-31] MEDS: FUROSEMIDE 20 MG/2 ML VIAL IV PUSH SCH ×2 (10:07→17:44)
[2017-01-31] MEDS: METOPROLOL TARTRATE 25 MG TAB PO SCH (10:07)
[2017-01-31] MEDS: MULTIVITAMIN TAB PO SCH (10:07)
[2017-01-31] MEDS ORDERED: SODIUM CHLOR 0.9% 250 ML INJ 250 ML IV ONE (12:15)
--- NOTE | 2017-01-31 12:27 | ECHRPT ---
Indication: sob CONCLUSIONS The left ventricular systolic function is normal with an estimated ejection fraction in the range of 60-65%. Normal left ventricular size. Mild concentric left ventricular hypertrophy. The left atrial size is mildly dilated. Moderate mitral annular calcification. Moderate mitral valve stenosis. Severe thickening of the aortic valve leaflet No aortic valve stenosis; mean gradient 14mmHg There is moderate tricuspid regurgitation. There is estimated [id number]-[id number] pulmonary hypertension present ( 68 mmHg). BP: 136 / 81 HR: 101 Rhythm: MEASUREMENTS (Male / Female) Normal Values Technical Quality:Good 2D ECHO LV Diastolic Diameter PLAX 3.3 cm 4.2 - 5.9 / 3.9 - 5.3 cm LV Systolic Diameter PLAX 2.5 cm IVS Diastolic Thickness 1.5 cm 0.6 - 1.0 / 0.6 - 0.9 cm LVPW Diastolic Thickness 1.0 cm 0.6 - 1.0 / 0.6 - 0.9 cm LV Relative Wall Thickness 0.8 RV Internal Dim ED PLAX 2.3 cm LA Systolic Diameter LX 4.3 cm 3.0 - 4.0 / 2.7 - 3.8 cm DOPPLER AV Peak Velocity 259.0 cm/s AV Peak Gradient 26.8 mmHg LVOT Peak Velocity 157.0 cm/s LVOT Peak Gradient 9.9 mmHg MV Peak Velocity 221.0 cm/s MV Peak Gradient 19.5 mmHg MV Mean Velocity 130.0 cm/s MV Mean Gradient 9.0 mmHg Mitral E Point Velocity 184.0 cm/s Mitral A Point Velocity 197.0 cm/s Mitral E to A Ratio 0.9 TR Peak Velocity 381.6 cm/s TR Peak Gradient 58.2 mmHg FINDINGS LEFT VENTRICLE Normal left ventricular size. Mild concentric left ventricular hypertrophy. The left ventricular systolic function is normal with an estimated ejection fraction in the range of 60-65%. RIGHT VENTRICLE The right ventriclar size is upper limits of normal. LEFT ATRIUM The left atrial size is mildly dilated. RIGHT ATRIUM The right atrial size is normal. ATRIAL SEPTUM Normal atrial septal thickness without atrial level shunting by limited color doppler interrogation. AORTA The aortic root and proximal ascending aorta are normal in size on limited imaging. MITRAL VALVE Moderate mitral annular calcification. Trace mitral valve regurgitation. Moderate mitral valve stenosis. AORTIC VALVE Severe thickening of the aortic valve leaflet No aortic valve stenosis. TRICUSPID VALVE There is moderate tricuspid regurgitation. There is estimated hmpdrgon-ho-sdobjo pulmonary hypertension present ( 68 mmHg). PULMONARY VALVE The pulmonary valve is not well visualized. VESSELS The inferior vena cava is normal in size. PERICARDIUM No pericardial effusion. Que Sullivan MD (Electronically Signed) Final Date:31 January 2017 12:25
--- NOTE | 2017-01-31 15:09 | HHI.PR ---
Subjective Remarks Follow-up for anemia history failure Patient stated shortness of breathing has resolved. Denies any cough or shortness of breathing. She is very anxious to go home today. Denies any GI bleed. d/w patient's nurse. Objective Vitals Vital Signs Date Time Temp Pulse Resp B/P (MAP) Pulse Ox O2 Delivery O2 Flow Rate FiO2 01/31/17 12:00 98.1 103 21 160/87 (111) 90 01/31/17 09:45 91 Room Air 01/31/17 09:18 92 01/31/17 08:00 97.3 109 20 159/91 (113) 90 01/31/17 04:46 97.6 95 22 143/74 (97) 97 01/31/17 04:06 96 Nasal Cannula 4.00 01/31/17 01:47 97.2 96 22 143/69 (93) 96 01/31/17 01:13 94 01/30/17 21:45 96 Nasal Cannula 4.00 01/30/17 21:37 18 01/30/17 21:33 98.5 109 22 162/77 (105) 99 01/30/17 20:34 94 Nasal Cannula 4.00 01/30/17 19:16 93 Nasal Cannula 6.00 01/30/17 16:00 98.4 100 20 174/86 (115) 93 I/O 01/30/17 01/30/17 01/30/17 01/31/17 01/31/17 01/31/17 07:00 15:00 23:00 07:00 15:00 23:00 Intake Total 530 ml 50 ml 470 ml 500 ml Output Total 1225 ml 1300 ml 1200 ml Balance 530 ml -1175 ml -830 ml -700 ml Intake Oral 120 ml 220 ml IV Total 50 ml 250 ml 500 ml Packed Cells 400 ml Blood Product IV Normal Saline Flush 10 ml Output Urine Total 1225 ml 1300 ml 1200 ml # Voids 3 6 # Bowel Movements 1 Result Diagram: 01/31/1745401/31/17 045 Objective Remarks GENERAL: in NAD CARDIOVASCULAR: Regular rate and rhythm without murmurs, gallops, or rubs. RESPIRATORY: Clear to attestation bilaterally. No accessory muscle use. GASTROINTESTINAL: Abdomen soft, non-tender, nondistended. MUSCULOSKELETAL: No cyanosis, or edema. BACK: Nontender without obvious deformity. No CVA tenderness. Medications and IVs Current Medications Sodium Chloride 250 ml @ 15 mls/hr ONCE ONCE IV Last administered on 20:18; Start 01/29/17 at 17:00; Stop 01/30/17 at 09:39; Status DC Pantoprazole Sodium 80 mg/ Sodium Chloride 35 ml @ 420 mls/hr BOLUS ONCE IV Last administered on 01/29/17 20:16; Start 01/29/17 at 18:15; Stop 01/29/17 at 18: 19; Status DC Pantoprazole Sodium 80 mg/ Sodium Chloride 100 ml @ 10 mls/hr CONTINUOUS IV Last administered on 01/30/17 02:47; Start 01/29/17 at 20:00 Sodium Chloride (NS Flush) 2 ml UNSCH PRN IV FLUSH FLUSH AFTER USING IV ACCESS ; Start 01/29/17 at 20:15 Sodium Chloride (NS Flush) 2 ml BID IV FLUSH Last administered on 01/31/17 09: 00; Start 01/29/17 at 21:00 Naloxone HCl (Narcan Inj) 0.4 mg UNSCH PRN IV SEE LABEL COMMENTS; Start at 20:15 Acetaminophen (Tylenol) 650 mg Q6HR PRN PO Pain > 3 Last administered on 20:37; Start 01/29/17 at 22:00 Albuterol/ Ipratropium (Duoneb Neb) 1 ampule Q4HR NEB PRN NEB SOB/WHEEZING Last administered on 01/30/17 11:06; Start 01/29/17 at 22:15 Non-Formulary Medication 1 cap DAILY PO ; Start 01/30/17 at 09:00; Stop 01/30/17 at 09:00; Status DC Multivitamins (Theragran) 1 tab DAILY PO Last administered on 01/31/17 10:07; Start 01/30/17 at 09:00 Metoprolol Tartrate (Lopressor) 25 mg DAILY PO Last administered on 01/31/17 10 :07; Start 01/30/17 at 09:00 Lorazepam (Ativan) 0.5 mg BID PRN PO ANXIETY Last administered on 01/30/17 20: 36; Start 01/29/17 at 22:15 Furosemide (Lasix Inj) 20 mg BID@09,18 IV PUSH Last administered on 01/31/17 10 :07; Start 01/30/17 at 13:00 Albuterol/ Ipratropium (Duoneb Neb) 1 ampule Q6HR WHILE AWAKE NEB NEB Last administered on 01/31/17 08:00; Start 01/30/17 at 14:00 Iron Dextran 25 mg/Sodium Chloride 50.5 ml @ 606 mls/hr ONCE ONCE IV Last administered on 01/30/17 15:49; Start 01/30/17 at 13:30; Stop 01/30/17 at 13:34; Status DC Iron Dextran 100 mg/Sodium Chloride 102 ml @ 204 mls/hr ONCE ONCE IV Last administered on 01/30/17 18:12; Start 01/30/17 at 13:30; Stop 01/30/17 at 13:59; Status DC Famotidine (Pepcid Inj) 20 mg ONCE ONCE IV PUSH Last administered on 01/30/17 13:54; Start 01/30/17 at 14:00; Stop 01/30/17 at 14:01; Status DC Diphenhydramine HCl 25 mg/Sodium Chloride 50.5 ml @ 202 mls/hr ONCE ONCE IV Last administered on 01/30/17 14:35; Start 01/30/17 at 14:00; Stop 01/30/17 at 14: 14; Status DC Dexamethasone Sodium Phosphate 20 mg/Sodium Chloride 55 ml @ 220 mls/hr ONCE ONCE IV Last administered on 01/30/17 13:55; Start 01/30/17 at 14:00; Stop at 14:14; Status DC Iron Dextran 1500 mg/Sodium Chloride 1,030 ml @ 171.667 mls/hr ONCE ONCE IV Last administered on 01/30/17 19:04; Start 01/30/17 at 14:30; Stop 01/30/17 at 20: 29; Status DC Sodium Chloride 250 ml @ 15 mls/hr ONCE ONCE IV ; Start 01/31/17 at 12:15; Stop 02/01/17 at 04:54 A/P Problem List: (1) GI bleed ICD Code: K92.2 - Gastrointestinal hemorrhage, unspecified Status: Acute (2) Anemia ICD Code: D64.9 - Anemia, unspecified Status: Acute Assessment and Plan 82 y/o female with a history of GI bleed and anemia who presented to ED following outpatient lab testing showing hemoglobin of 5: GI Bleed Symptomatic Anemia, patient has chronic anemia. History of GI bleed. - Hgb - 5.5/ HCT - 18.1 status post blood transfusion with 2 units packed red blood cells posttransfusion hemoglobin is 8.4 then trended up and now slowly trending down. -GI consulted but patient declined procedures at the moment. -Dr. Mckeon consulted and recommended to transfuse patient until hemoglobin is about 10. Patient is on IV iron. -Since respiratory failure improved drastically and is off oxygen will transfuse another unit of packed red blood cells. She will also be given Lasix. Osteoarthritis - PRN Tylenol 650 mg q6h p.o. pain - consult physical therapy to prevent deconditioning Acute respiratory failure with hypoxia after transfusion -Symptoms improved drastically after given Lasix. -Most likely secondary to being volume overloaded. - BNP mildly elevated. Echo showed an EF of 60-65% with mild left ventricular hypertrophy, moderate to severe pulmonary hypertension, moderate stenosis of the mitral valve. -Continue with Lasix. Strict ins and outs. Monitor creatinine and clinical status. Wean oxygen as tolerated. -Will discontinue DuoNeb since patient is not wheezing. Chronic Kidney disease, stage IV - contributes to anemia - Continue to monitor. - avoid nephrotoxins Anxiety - Lorazepam 0.5 mg BID PRN for anxiety DVT prophylaxis - SCDs/TEDs Dealt with patient's nurse in regards to management. . . Discharge Planning Patient does not want any procedures done at the moment. Will need to transfuse another unit. But if hemoglobin remains stable and there is no active GI bleed possible discharge in a.m. since patient is requesting to go home. Problem Qualifiers (1) GI bleed: Qualified Codes: K92.2 - Gastrointestinal hemorrhage, unspecified (2) Anemia: Qualified Codes: D64.9 - Anemia, unspecified Roxane Armendariz MD Jan 31, 2017 15:09
[2017-01-31] MEDS: RESP: ALBUTEROL 2.5 MG/IPRATROPIUM 0.5 MG NEB (PRN) NEB ×2 (16:57→21:27)
[2017-01-31] MEDS: LORazepam 0.5 MG TAB PO PRN (21:16)
[2017-02-01] VITALS (8 sets, daily range): BP systolic 159–194; BP diastolic 68–110; PULSE 75–130; RESP 16–21; TEMP 97.7–98.9; O2SAT 94–98
--- NOTE | 2017-02-01 08:27 | HHI.GIFU ---
Subjective Remarks Patient sitting on edge of bed. She is not in any distress. She continues to have dark stools, but denies any klever red blood, nausea or vomiting, or abdominal pain. She does not wish to have an enteroscopy at this time and would like to wait until she is feeling better before she proceeds with a capsule endoscopy (Amelia Thomas) Objective Vitals I&O Vital Signs Date Time Temp Pulse Resp B/P (MAP) Pulse Ox O2 Delivery O2 Flow Rate FiO2 02/01/17 04:45 97.7 100 21 165/88 (113) 97 02/01/17 00:45 98.8 103 20 161/76 (104) 94 01/31/17 21:27 96 Nasal Cannula 2.00 01/31/17 20:40 98.5 112 20 170/85 (113) 93 01/31/17 19:00 97 Nasal Cannula 2.00 01/31/17 18:12 99 01/31/17 16:48 98.9 101 21 179/86 96 01/31/17 16:30 173/91 01/31/17 16:27 98.5 97 20 151/105 95 01/31/17 16:00 98.1 100 20 152/81 93 01/31/17 15:42 98.9 96 19 163/72 93 01/31/17 12:00 98.1 103 21 160/87 (111) 90 01/31/17 09:45 91 Room Air 01/31/17 09:18 92 I/O 01/31/17 01/31/17 01/31/17 02/01/17 02/01/17 02/01/17 07:00 15:00 23:00 07:00 15:00 23:00 Intake Total 500 ml 870 ml 500 ml Output Total 1200 ml Balance -700 ml 870 ml 500 ml Intake Oral 600 ml 500 ml IV Total 500 ml Packed Cells 250 ml Blood Product IV Normal Saline Flush 20 ml Output Urine Total 1200 ml # Voids 1 6 # Bowel Movements 0 0 Imaging Last Impressions Chest X-Ray 01/30/17 1113 Signed Impressions: Service Date/Time: Monday, January 30, 2017 11:23 - CONCLUSION: Probable CHF , however pneumonia is difficult to exclude at this time and followup is recommended. Lauren Santizo MD Physical Exam HEENT: Normocephalic; atraumatic; no jaundice CHEST: Resp. even/unlabored, diminished bases. O2 via N/C CARDIAC: RRR ABDOMEN: Soft, obese, nondistended, nontender; no hepatosplenomegaly; bowel sounds are present in all four quadrants. EXTREMITIES: BLE edema. SKIN: Normal; no rash; no jaundice. MEDICAL TERMINOLOGIST: No focal deficits; alert and oriented times three. (Amelia Thomas) Assessment and Plan Plan ASSESSMENT: - Severe anemia. S/P Recent EGD/Colonoscopy (12/22/16)---> duodenum normal, gastritis, large hiatal hernia, esophagitis, Boewn's, NBI scope used, retroflex views revealed a hiatal hernia; diverticulosis in the sigmoid and descending colon , very tortuous and floppy colon, retroflex views revealed internal hemorrhoids , internal hemorrhoids. Pathology small intestinal mucosal biopsy without significant histopathologic abnormality, gastric antral mucosal biopsies with mild chronic gastritis negative for intestinal metaplasia and dysplasia, stainer stain negative for Helicobacter, gastroesophageal mucosal biopsies with chronic inflammatory changes consistent with reflux negative for intestinal metaplasia and dysplasia Returned to ER and found to have H/H of 5.5/18.1 on arrival. S/P 3 units during this admission (7 units since November). HH yesterday 7.9/24.8- today's labs are pending. She is not wishing to pursue enteroscopy. D/W patient possible capsule endoscopy as outpatient- she is wanting to wait until she is feeling better. Hematology is following. Theragran. She is on Protonix Gtt, okay to change to BID. CHARLY. - Respiratory insufficiency, CKD, Anxiety, OA per attending. PLAN: - CHARLY - Await today's HH - Change protonix to BID dosing - Monitor HH - Transfuse as necessary - Hematology following - Refusing enteroscopy - Capsule endoscopy as outpatient - Supportive care - Further recommendations to follow based on results of above - Pt seen and examined by Dr. Ashby and myself and this note is written on her behalf (Amelia Thomas) Physician Comments seen, examined agree with above we will consider bleeding scan vs ct abd/pelvis based on her clinical status and cbc results in am (Andressa Ashby MD) Amelia Thomas Feb 01, 2017 08:27 Andressa Ashby MD Feb 01, 2017 19:46
[2017-02-01] MEDS: METOPROLOL TARTRATE 25 MG TAB PO SCH (08:38)
[2017-02-01] MEDS: FUROSEMIDE 20 MG/2 ML VIAL IV PUSH SCH (08:38)
[2017-02-01] MEDS: MULTIVITAMIN TAB PO SCH (08:39)
[2017-02-01] MEDS: PANTOPRAZOLE SODIUM 40 MG VIAL IV PUSH SCH ×2 (08:39→21:00)
[2017-02-01] MEDS: SODIUM CHLORIDE 0.9% FLUSH 10 ML FLUSH IV FLUSH SCH ×2 (08:39→21:00)
[2017-02-01 09:54] LABS: HEMATOCRIT 29.1 % (35.0-46.0); MEAN CELL VOLUME 90.3 FL (80.0-100.0); MEAN CORPUSCULAR HEMOGLOBIN 28.8 PG (27.0-34.0); MEAN CORPUSCULAR HGB CONC 31.9 % (32.0-36.0); PLATELET COUNT 335 TH/MM3 (150-450); RED BLOOD COUNT 3.23 MIL/MM3 (4.00-5.30); RED CELL DISTRIBUTION WIDTH 18.9 % (11.6-17.2); REVIEW FLAG FINAL; WHITE BLOOD COUNT 14.1 TH/MM3 (4.0-11.0)
[2017-02-01] MEDS: METOPROLOL SUCCINATE 50 MG EXTENDED RELEASE TAB PO SCH (10:00)
[2017-02-01] MEDS: cloNIDine HCL 0.1 MG TAB PO PRN (10:05)
[2017-02-01 10:35] LABS: BICARBONATE 24.8 MEQ/L (21.0-32.0)
--- NOTE | 2017-02-01 11:16 | HHI.PR ---
Subjective Remarks Follow-up far shortness of breathing anemia Patient seemed very anxious today. Her blood pressure is elevated in the SBP 190s. Patient states she is on the wrong dose metoprolol she stated that she is on 50 mg. Deny any chest pain, shortness of breathing, palpitation, and his dizziness. Patient denies any GI bleed. Stated that she does not feel well to go today. She continues to declined any types of procedure. Her nurse is at the bedside during the interview. Her nurse stated that after she was given transfusion yesterday she did have to give her nebulizer treatment due to wheezing. At the moment she is not wheezing. Objective Vitals Vital Signs Date Time Temp Pulse Resp B/P (MAP) Pulse Ox O2 Delivery O2 Flow Rate FiO2 02/01/17 09:40 88 20 194/110 (138) 94 02/01/17 09:00 Nasal Cannula 2.00 02/01/17 08:00 98.3 101 16 190/93 (125) 96 193/93 (126) 02/01/17 04:45 97.7 100 21 165/88 (113) 97 02/01/17 00:45 98.8 103 20 161/76 (104) 94 01/31/17 21:27 96 Nasal Cannula 2.00 01/31/17 20:40 98.5 112 20 170/85 (113) 93 01/31/17 19:00 97 Nasal Cannula 2.00 01/31/17 18:12 99 01/31/17 16:48 98.9 101 21 179/86 96 01/31/17 16:30 173/91 01/31/17 16:27 98.5 97 20 151/105 95 01/31/17 16:00 98.1 100 20 152/81 93 01/31/17 15:42 98.9 96 19 163/72 93 01/31/17 12:00 98.1 103 21 160/87 (111) 90 I/O 01/31/17 01/31/17 01/31/17 02/01/17 02/01/17 02/01/17 06:59 14:59 22:59 06:59 14:59 22:59 Intake Total 500 ml 870 ml 500 ml 20 ml Output Total 1200 ml Balance -700 ml 870 ml 500 ml 20 ml Intake Oral 600 ml 500 ml IV Total 500 ml 20 ml Packed Cells 250 ml Blood Product IV Normal Saline Flush 20 ml Output Urine Total 1200 ml # Voids 1 6 # Bowel Movements 0 0 Result Diagram: 02/01/1784602/01/1747 Objective Remarks GENERAL: in NAD CARDIOVASCULAR: Regular rate and rhythm without murmurs, gallops, or rubs. RESPIRATORY: Clear to attestation bilaterally. No accessory muscle use. GASTROINTESTINAL: Abdomen soft, non-tender, nondistended. MUSCULOSKELETAL: No cyanosis, or edema. BACK: Nontender without obvious deformity. No CVA tenderness. Medications and IVs Current Medications Sodium Chloride 250 ml @ 15 mls/hr ONCE ONCE IV Last administered on 20:18; Start 01/29/17 at 17:00; Stop 01/30/17 at 09:39; Status DC Pantoprazole Sodium 80 mg/ Sodium Chloride 35 ml @ 420 mls/hr BOLUS ONCE IV Last administered on 01/29/17 20:16; Start 01/29/17 at 18:15; Stop 01/29/17 at 18: 19; Status DC Pantoprazole Sodium 80 mg/ Sodium Chloride 100 ml @ 10 mls/hr CONTINUOUS IV Last administered on 01/30/17 02:47; Start 01/29/17 at 20:00; Stop 02/01/17 at 08 :28; Status DC Sodium Chloride (NS Flush) 2 ml UNSCH PRN IV FLUSH FLUSH AFTER USING IV ACCESS ; Start 01/29/17 at 20:15 Sodium Chloride (NS Flush) 2 ml BID IV FLUSH Last administered on 02/01/17 08: 39; Start 01/29/17 at 21:00 Naloxone HCl (Narcan Inj) 0.4 mg UNSCH PRN IV SEE LABEL COMMENTS; Start at 20:15 Acetaminophen (Tylenol) 650 mg Q6HR PRN PO Pain > 3 Last administered on 20:37; Start 01/29/17 at 22:00 Albuterol/ Ipratropium (Duoneb Neb) 1 ampule Q4HR NEB PRN NEB SOB/WHEEZING Last administered on 01/31/17 21:27; Start 01/29/17 at 22:15 Non-Formulary Medication 1 cap DAILY PO ; Start 01/30/17 at 09:00; Stop 01/30/17 at 09:00; Status DC Multivitamins (Theragran) 1 tab DAILY PO Last administered on 02/01/17 08:39; Start 01/30/17 at 09:00 Metoprolol Tartrate (Lopressor) 25 mg DAILY PO Last administered on 02/01/17 08:38; Start 01/30/17 at 09:00; Stop 02/01/17 at 09:44; Status DC Lorazepam (Ativan) 0.5 mg BID PRN PO ANXIETY Last administered on 01/31/17 21: 16; Start 01/29/17 at 22:15 Furosemide (Lasix Inj) 20 mg BID@09,18 IV PUSH Last administered on 02/01/17 08:38; Start 01/30/17 at 13:00 Albuterol/ Ipratropium (Duoneb Neb) 1 ampule Q6HR WHILE AWAKE NEB NEB Last administered on 01/31/17 08:00; Start 01/30/17 at 14:00; Stop 01/31/17 at 15:10; Status DC Iron Dextran 25 mg/Sodium Chloride 50.5 ml @ 606 mls/hr ONCE ONCE IV Last administered on 01/30/17 15:49; Start 01/30/17 at 13:30; Stop 01/30/17 at 13:34; Status DC Iron Dextran 100 mg/Sodium Chloride 102 ml @ 204 mls/hr ONCE ONCE IV Last administered on 01/30/17 18:12; Start 01/30/17 at 13:30; Stop 01/30/17 at 13:59; Status DC Famotidine (Pepcid Inj) 20 mg ONCE ONCE IV PUSH Last administered on 01/30/17 13:54; Start 01/30/17 at 14:00; Stop 01/30/17 at 14:01; Status DC Diphenhydramine HCl 25 mg/Sodium Chloride 50.5 ml @ 202 mls/hr ONCE ONCE IV Last administered on 01/30/17 14:35; Start 01/30/17 at 14:00; Stop 01/30/17 at 14: 14; Status DC Dexamethasone Sodium Phosphate 20 mg/Sodium Chloride 55 ml @ 220 mls/hr ONCE ONCE IV Last administered on 01/30/17 13:55; Start 01/30/17 at 14:00; Stop at 14:14; Status DC Iron Dextran 1500 mg/Sodium Chloride 1,030 ml @ 171.667 mls/hr ONCE ONCE IV Last administered on 01/30/17 19:04; Start 01/30/17 at 14:30; Stop 01/30/17 at 20: 29; Status DC Sodium Chloride 250 ml @ 15 mls/hr ONCE ONCE IV Last administered on 15:47; Start 01/31/17 at 12:15; Stop 02/01/17 at 04:54; Status DC Pantoprazole Sodium (Protonix Inj) 40 mg Q12H IV PUSH Last administered on 02/01 08:39; Start 02/01/17 at 09:00 Metoprolol Succinate (Toprol Xl) 50 mg DAILY PO ; Start 02/01/17 at 09:45 Clonidine (Catapres) 0.1 mg Q8HR PRN PO SBP>180 or >100 Last administered on 10:05; Start 02/01/17 at 09:45 A/P Problem List: (1) GI bleed ICD Code: K92.2 - Gastrointestinal hemorrhage, unspecified Status: Acute (2) Anemia ICD Code: D64.9 - Anemia, unspecified Status: Acute Assessment and Plan 82 y/o female with a history of GI bleed and anemia who presented to ED following outpatient lab testing showing hemoglobin of 5: GI Bleed Symptomatic Anemia, patient has chronic anemia. History of GI bleed. - Hgb - 5.5/ HCT - 18.1 status post blood transfusion with 2 units packed red blood cells posttransfusion hemoglobin is 8.4 then trended up and now slowly trending down. -GI consulted but patient declined procedures at the moment. -Dr. Mckeon consulted and recommended to transfuse patient until hemoglobin is about 10. Patient is on IV iron. -Since respiratory failure improved drastically and is off oxygen will transfuse another unit of packed red blood cells. She will also be given Lasix. Hypertensive urgency -This is more due to anxiety. -Will give clonidine when necessary. Put her on her current dose of metoprolol. Continue to monitor closely. Osteoarthritis - PRN Tylenol 650 mg q6h p.o. pain - consult physical therapy to prevent deconditioning Acute respiratory failure with hypoxia after transfusion -Most likely secondary to being volume overloaded. - BNP mildly elevated. Echo showed an EF of 60-65% with mild left ventricular hypertrophy, moderate to severe pulmonary hypertension, moderate stenosis of the mitral valve. -Due to mild elevation of creatinine and improvement in respiratory status will decrease Lasix. Chronic Kidney disease, stage IV - contributes to anemia - Continue to monitor. - avoid nephrotoxins Anxiety - Lorazepam 0.5 mg BID PRN for anxiety DVT prophylaxis - SCDs/TEDs Dealt with patient's nurse in regards to management. . . Discharge Planning Due to hypertensive urgency patient needs to remain hospitalized. Problem Qualifiers (1) GI bleed: Qualified Codes: K92.2 - Gastrointestinal hemorrhage, unspecified (2) Anemia: Qualified Codes: D64.9 - Anemia, unspecified Roxane Armendariz MD Feb 01, 2017 11:16
[2017-02-01] MEDS: FUROSEMIDE 20 MG TAB PO SCH (17:08)
[2017-02-01] MEDS: ACETAMINOPHEN 325 MG TAB PO PRN (23:41)
[2017-02-02] VITALS: BP 184/97; PULSE 95; RESP 17; TEMP 97.9; O2SAT 95
[2017-02-02] MEDS: cloNIDine HCL 0.1 MG TAB PO PRN ×2 (00:20→15:49)
[2017-02-02 04:00] VITALS: BP 165/79; PULSE 89; RESP 16; TEMP 97.7; O2SAT 95
[2017-02-02 08:00] VITALS: BP 162/79; PULSE 88; RESP 21; TEMP 98.2; O2SAT 93
[2017-02-02 08:38] LABS: AUTOMATED NEUTROPHIL # 11.9 TH/MM3 (1.8-7.7); BASOPHIL # 0.1 TH/MM3 (0-0.2); BASOPHIL % 0.8 % (0.0-2.0); EOSINOPHIL # 0.3 TH/MM3 (0-0.4); EOSINOPHIL % 2.1 % (0.0-4.0); HEMATOCRIT 28.2 % (35.0-46.0); HEMO FLAGS DIFF FINAL; LYMPH % 7.4 % (9.0-44.0); LYMPHOCYTE # 1.1 TH/MM3 (1.0-4.8); MEAN CELL VOLUME 90.1 FL (80.0-100.0); MEAN CORPUSCULAR HEMOGLOBIN 28.8 PG (27.0-34.0); MONO % 9.1 % (0.0-8.0); NEUT % 80.6 % (16.0-70.0); PLATELET COUNT 348 TH/MM3 (150-450); RED BLOOD COUNT 3.12 MIL/MM3 (4.00-5.30); RED CELL DISTRIBUTION WIDTH 18.5 % (11.6-17.2); WHITE BLOOD COUNT 14.8 TH/MM3 (4.0-11.0)
[2017-02-02] MEDS: MULTIVITAMIN TAB PO SCH (09:11)
[2017-02-02] MEDS: METOPROLOL SUCCINATE 50 MG EXTENDED RELEASE TAB PO SCH (09:11)
[2017-02-02] MEDS: PANTOPRAZOLE SODIUM 40 MG VIAL IV PUSH SCH ×2 (09:12→21:00)
[2017-02-02] MEDS: SODIUM CHLORIDE 0.9% FLUSH 10 ML FLUSH IV FLUSH SCH ×2 (09:12→21:00)
[2017-02-02] MEDS: FUROSEMIDE 20 MG TAB PO SCH (09:12)
[2017-02-02] MEDS ORDERED: DIATRIZOATE MEGLUM/DIATRIZOATE SOD 9 ML CUP PO ONE (09:34)
[2017-02-02 12:00] VITALS: BP 173/98; PULSE 84; RESP 20; TEMP 97.7; O2SAT 94
--- NOTE | 2017-02-02 13:15 | HHI.PR ---
Subjective Remarks Follow-up for GI bleed, anemia, hypertension, respiratory failure Patient stated breathing has improved. She stated that she wanted me to stop the Lasix due to excessive urination. Deny any shortness of breathing or cough. Patient states she feels a lot better today. Denied any GI bleed. CT scan of the abdomen and pelvis ordered for today. Objective Vitals Vital Signs Date Time Temp Pulse Resp B/P (MAP) Pulse Ox O2 Delivery O2 Flow Rate FiO2 02/02/17 12:00 97.7 84 20 173/98 (123) 94 02/02/17 09:19 Room Air 02/02/17 08:00 98.2 88 21 162/79 (106) 93 02/02/17 04:00 97.7 89 16 165/79 (107) 95 02/02/17 00:00 97.9 95 17 184/97 (126) 95 02/01/17 20:00 98.6 97 16 159/76 (103) 98 02/01/17 19:00 Nasal Cannula 2.00 02/01/17 16:00 98.3 88 20 173/80 (111) 94 I/O 02/01/17 02/01/17 02/01/17 02/02/17 02/02/17 02/02/17 07:00 15:00 23:00 07:00 15:00 23:00 Intake Total 500 ml 500 ml 720 ml 480 ml Balance 500 ml 500 ml 720 ml 480 ml Intake Oral 500 ml 480 ml 720 ml 480 ml IV Total 20 ml # Voids 6 6 4 3 # Bowel Movements 0 1 Result Diagram: 02/02/17 0732 02/01/17 0847 Objective Remarks GENERAL: in NAD CARDIOVASCULAR: Regular rate and rhythm without murmurs, gallops, or rubs. RESPIRATORY: Clear to auscultation bilaterally. No accessory muscle use. GASTROINTESTINAL: Abdomen soft, non-tender, nondistended. MUSCULOSKELETAL: No cyanosis, or edema. BACK: Nontender without obvious deformity. No CVA tenderness. Medications and IVs Current Medications Sodium Chloride 250 ml @ 15 mls/hr ONCE ONCE IV Last administered on t 20:18; Start 01/29/17 at 17:00; Stop 01/30/17 at 09:39; Status DC Pantoprazole Sodium 80 mg/ Sodium Chloride 35 ml @ 420 mls/hr BOLUS ONCE IV Last administered on 01/29/17 20:16; Start 01/29/17 at 18:15; Stop 01/29/17 at 18: 19; Status DC Pantoprazole Sodium 80 mg/ Sodium Chloride 100 ml @ 10 mls/hr CONTINUOUS IV Last administered on 01/30/17 02:47; Start 01/29/17 at 20:00; Stop 02/01/17 at 08 :28; Status DC Sodium Chloride (NS Flush) 2 ml UNSCH PRN IV FLUSH FLUSH AFTER USING IV ACCESS ; Start 01/29/17 at 20:15 Sodium Chloride (NS Flush) 2 ml BID IV FLUSH Last administered on 02/02/17 09: 12; Start 01/29/17 at 21:00 Naloxone HCl (Narcan Inj) 0.4 mg UNSCH PRN IV SEE LABEL COMMENTS; Start at 20:15 Acetaminophen (Tylenol) 650 mg Q6HR PRN PO Pain > 3 Last administered on 23:41; Start 01/29/17 at 22:00 Albuterol/ Ipratropium (Duoneb Neb) 1 ampule Q4HR NEB PRN NEB SOB/WHEEZING Last administered on 01/31/17 21:27; Start 01/29/17 at 22:15 Non-Formulary Medication 1 cap DAILY PO ; Start 01/30/17 at 09:00; Stop 01/30/17 at 09:00; Status DC Multivitamins (Theragran) 1 tab DAILY PO Last administered on 02/02/17 09:11; Start 01/30/17 at 09:00 Metoprolol Tartrate (Lopressor) 25 mg DAILY PO Last administered on 02/01/17 08:38; Start 01/30/17 at 09:00; Stop 02/01/17 at 09:44; Status DC Lorazepam (Ativan) 0.5 mg BID PRN PO ANXIETY Last administered on 01/31/17 21: 16; Start 01/29/17 at 22:15 Furosemide (Lasix Inj) 20 mg BID@09,18 IV PUSH Last administered on 02/01/17 08:38; Start 01/30/17 at 13:00; Stop 02/01/17 at 11:18; Status DC Albuterol/ Ipratropium (Duoneb Neb) 1 ampule Q6HR WHILE AWAKE NEB NEB Last administered on 01/31/17 08:00; Start 01/30/17 at 14:00; Stop 01/31/17 at 15:10; Status DC Iron Dextran 25 mg/Sodium Chloride 50.5 ml @ 606 mls/hr ONCE ONCE IV Last administered on 01/30/17 15:49; Start 01/30/17 at 13:30; Stop 01/30/17 at 13:34; Status DC Iron Dextran 100 mg/Sodium Chloride 102 ml @ 204 mls/hr ONCE ONCE IV Last administered on 01/30/17 18:12; Start 01/30/17 at 13:30; Stop 01/30/17 at 13:59; Status DC Famotidine (Pepcid Inj) 20 mg ONCE ONCE IV PUSH Last administered on 01/30/17 13:54; Start 01/30/17 at 14:00; Stop 01/30/17 at 14:01; Status DC Diphenhydramine HCl 25 mg/Sodium Chloride 50.5 ml @ 202 mls/hr ONCE ONCE IV Last administered on 01/30/17 14:35; Start 01/30/17 at 14:00; Stop 01/30/17 at 14: 14; Status DC Dexamethasone Sodium Phosphate 20 mg/Sodium Chloride 55 ml @ 220 mls/hr ONCE ONCE IV Last administered on 01/30/17 13:55; Start 01/30/17 at 14:00; Stop at 14:14; Status DC Iron Dextran 1500 mg/Sodium Chloride 1,030 ml @ 171.667 mls/hr ONCE ONCE IV Last administered on 01/30/17 19:04; Start 01/30/17 at 14:30; Stop 01/30/17 at 20: 29; Status DC Sodium Chloride 250 ml @ 15 mls/hr ONCE ONCE IV Last administered on 15:47; Start 01/31/17 at 12:15; Stop 02/01/17 at 04:54; Status DC Pantoprazole Sodium (Protonix Inj) 40 mg Q12H IV PUSH Last administered on 02/02 09:12; Start 02/01/17 at 09:00 Metoprolol Succinate (Toprol Xl) 50 mg DAILY PO Last administered on 02/02/17 09:11; Start 02/01/17 at 09:45 Clonidine (Catapres) 0.1 mg Q8HR PRN PO SBP>180 or >100 Last administered on 00:20; Start 02/01/17 at 09:45 Furosemide (Lasix) 20 mg BID@09,18 PO Last administered on 02/01/17 17:08; Start 02/01/17 at 18:00 Diatrizoate Meglum/ Diatrizoate Sod ( Gastroview Liq) 18 ml ONCE ONCE PO Last administered on 02/02/17 10:28; Start 02/02/17 at 09:34; Stop 02/02/17 at 10:04; Status DC A/P Problem List: (1) GI bleed ICD Code: K92.2 - Gastrointestinal hemorrhage, unspecified Status: Acute (2) Anemia ICD Code: D64.9 - Anemia, unspecified Status: Acute Assessment and Plan 82 y/o female with a history of GI bleed and anemia who presented to ED following outpatient lab testing showing hemoglobin of 5: GI Bleed Symptomatic Anemia, patient has chronic anemia. History of GI bleed. - Hgb - 5.5/ HCT - 18.1 status post blood transfusion with 2 units packed red blood cells on 01/29 then 1 unit on 01/31. -GI consulted but patient declined procedures at the moment. -Dr. Mckeon consulted and recommended to transfuse patient until hemoglobin is about 10. Patient is on IV iron. -Patient will have CT scan of the abdomen and pelvis ordered by GI. Continue management per GI. Continue to trend hemoglobin and monitor any signs of active GI bleed. Hypertensive urgency -This is more due to anxiety. -A schedule metoprolol and clonidine when necessary. Will continue her current regimen. Osteoarthritis - PRN Tylenol 650 mg q6h p.o. pain - PT consulted. Acute respiratory failure with hypoxia after transfusion -Most likely secondary to being volume overloaded. - BNP mildly elevated. Echo showed an EF of 60-65% with mild left ventricular hypertrophy, moderate to severe pulmonary hypertension, moderate stenosis of the mitral valve. -Seemed to resolve. Will DC Lasix since clinically patient does not look volume overloaded at the moment and monitor her off Lasix. Chronic Kidney disease, stage IV - contributes to anemia - Continue to monitor. - avoid nephrotoxins Anxiety - Lorazepam 0.5 mg BID PRN for anxiety DVT prophylaxis - SCDs/TEDs . . Problem Qualifiers (1) GI bleed: Qualified Codes: K92.2 - Gastrointestinal hemorrhage, unspecified (2) Anemia: Qualified Codes: D64.9 - Anemia, unspecified Roxane Armendariz MD Feb 02, 2017 13:15
--- NOTE | 2017-02-02 13:42 | PD.ONC.PN ---
Subjective Subjective Remarks feels well and states stool no longer black Objective Data Date Time Temp Pulse Resp B/P (MAP) Pulse Ox O2 Delivery O2 Flow Rate FiO2 02/02/17 12:00 97.7 84 20 173/98 (123) 94 02/02/17 09:19 Room Air 02/02/17 08:00 98.2 88 21 162/79 (106) 93 02/02/17 04:00 97.7 89 16 165/79 (107) 95 02/02/17 00:00 97.9 95 17 184/97 (126) 95 02/01/17 20:00 98.6 97 16 159/76 (103) 98 02/01/17 19:00 Nasal Cannula 2.00 02/01/17 16:00 98.3 88 20 173/80 (111) 94 02/02/17 02/02/17 02/02/17 07:00 15:00 23:00 Intake Total 480 ml Balance 480 ml Result Diagram: 02/02/17 0732 02/01/17 0847 Laboratory Results Laboratory Tests Test 02/02/17 07:32 White Blood Count 14.8 TH/MM3 Red Blood Count 3.12 MIL/MM3 Hemoglobin 9.0 GM/DL Hematocrit 28.2 % Mean Corpuscular Volume 90.1 FL Mean Corpuscular Hemoglobin 28.8 PG Mean Corpuscular Hemoglobin Concent 32.0 % Red Cell Distribution Width 18.5 % Platelet Count 348 TH/MM3 Mean Platelet Volume 7.6 FL Neutrophils (%) (Auto) 80.6 % Lymphocytes (%) (Auto) 7.4 % Monocytes (%) (Auto) 9.1 % Eosinophils (%) (Auto) 2.1 % Basophils (%) (Auto) 0.8 % Neutrophils # (Auto) 11.9 TH/MM3 Lymphocytes # (Auto) 1.1 TH/MM3 Monocytes # (Auto) 1.3 TH/MM3 Eosinophils # (Auto) 0.3 TH/MM3 Basophils # (Auto) 0.1 TH/MM3 CBC Comment DIFF FINAL Differential Comment Item Value Date Time Vitamin B12 Level GREATER THAN 2000 PG/ML H 01/30/17 1118 Folate GREATER THAN 20.0 NG/ML H 01/30/17 1118 Administered Medications Medications (Trade) Dose Ordered Sig/Lesli Route PRN Reason Start Time Stop Time Status Last Admin Dose Admin Sodium Chloride (NS Flush) 2 ml BID IV FLUSH 01/29/17 21:00 02/02/17 09:12 Acetaminophen (Tylenol) 650 mg Q6HR PRN PO Pain > 3 01/29/17 22:00 02/01/17 23:41 Albuterol/ Ipratropium (Duoneb Neb) 1 ampule Q4HR NEB PRN NEB SOB/WHEEZING 01/29/17 22:15 01/31/17 21:27 Multivitamins (Theragran) 1 tab DAILY PO 01/30/17 09:00 02/02/17 09:11 Lorazepam (Ativan) 0.5 mg BID PRN PO ANXIETY 01/29/17 22:15 01/31/17 21:16 Pantoprazole Sodium (Protonix Inj) 40 mg Q12H IV PUSH 02/01/17 09:00 02/02/17 09:12 Metoprolol Succinate (Toprol Xl) 50 mg DAILY PO 02/01/17 09:45 02/02/17 09:11 Clonidine (Catapres) 0.1 mg Q8HR PRN PO SBP>180 or >100 02/01/17 09:45 02/02/17 00:20 Objective Remarks GENERAL: overweight SKIN: Warm and dry. HEAD: Normocephalic. EYES: No scleral icterus. No injection or drainage. NECK: Supple, trachea midline. No JVD or lymphadenopathy. LYMPHATIC: No adenopathy. CARDIOVASCULAR: Regular rate and rhythm without murmurs. RESPIRATORY: Breath sounds equal bilaterally. No accessory muscle use. GASTROINTESTINAL: Abdomen soft, overweight EXTREMITIES: +1 edema. MUSCULOSKELETAL: Adequate muscle tone. NEUROLOGICAL: No obvious focal deficit. Awake, alert, and oriented x3. PSYCHIATRIC: Appropriate mood and affect; insight and judgment normal. Assessment/Plan Assessment ANEMIA: iron infusion well tolerated and should allow her to produce 6-7 units of blood which will helpfully compensate for some of the presumed blood loss. I will see on February 19 and repeat cbc plat. patient is willing to proceed with pill endoscopy. no evidence of B12 or Folic acid deficiency as contributing event. Naeem Mckeon MD Feb 02, 2017 13:42
[2017-02-02] MEDS: ACETAMINOPHEN 325 MG TAB PO PRN (15:50)
[2017-02-02 16:00] VITALS: BP 184/84; PULSE 88; RESP 20; TEMP 98.6; O2SAT 96
--- NOTE | 2017-02-02 16:57 | RADRPT ---
EXAM DATE/TIME: 02/02/2017 16:38 [facility] COMPARISON: No previous studies available for comparison. INDICATIONS : Anemia. ORAL CONTRAST: Prescribed oral contrast ingested. RADIATION DOSE: 16.49 CTDIvol (mGy) MEDICAL HISTORY : Hypertension. Hernia, hiatal. diabetes SURGICAL HISTORY : Appendectomy. Cholecystectomy.Hysterectomy. ENCOUNTER: Initial ACUITY: 1 day PAIN SCALE: 0/10 LOCATION: Bilateral abdomen TECHNIQUE: Volumetric scanning of the abdomen and pelvis was performed. Using automated exposure control and ad justment of the mA and/or kV according to patient size, radiation dose was kept as low as reasonably achievable to obtain optimal diagnostic quality images. DICOM format image data is available electro nically for review and comparison. FINDINGS: LOWER LUNGS: Trace left pleural effusion and left lower lobe atelectasis. LIVER: Homogeneous density without lesion. There is no dilation of the biliary tree. Gallbladder is surgica lly absent. SPLEEN: Normal size without lesion. PANCREAS: Within normal limits. KIDNEYS: Kidneys are small bilaterally with cortical atrophy. There are bilateral renal cysts and. The largest measures 3.9 x 3.5 cm in the left mid kidney. Small subcentimeter cystic lesions are too small to ch aracterize. Punctate calcified calculus in the inferior pole of the left kidney. No hydronephrosis. ADRENAL GLANDS: Within normal limits. VASCULAR: There is no aortic aneurysm. BOWEL/MESENTERY: Moderate size hiatal hernia. Mild sigmoid diverticulosis without significant inflammatory change to s uggest diverticulitis. The bowel otherwise appears unremarkable by CT without evidence for obstructio n. ABDOMINAL WALL: Within normal limits. RETROPERITONEUM: There is no lymphadenopathy. BLADDER: Mildly distended. Evaluation is limited secondary to beam hardening artifact from bilateral hip arthr oplasties. REPRODUCTIVE: Uterus is surgically absent. INGUINAL: There is no lymphadenopathy or hernia. MUSCULOSKELETAL: Moderate S-shaped scoliosis of the lumbar spine. Bilateral hip arthroplasties in place. Multilevel de generative spondylosis of the lumbar spine. Abnormal lytic or blastic bony lesions. CONCLUSION: 1. Trace left pleural effusion and left lower lobe atelectasis. 2. No acute abnormality in the abdomen or pelvis. 3. Small atrophic appearing kidneys with bilateral renal cysts and punctate nonobstructing calyceal c alculus in the inferior pole of the left kidney, as above. 4. Moderate size hiatal hernia. 5. Mild sigmoid diverticulosis without definitive evidence for diverticulitis. 6. Limited evaluation of the pelvis due to beam hardening artifact from bilateral hip arthroplasties. 7. S-shaped scoliosis of the lumbar spine with associated advanced degenerative spondylosis. Corey Ramon MD on February 02, 2017 at 16:47 Board Certified Radiologist. This report was verified electronically.
[2017-02-02 20:00] VITALS: BP 127/71; PULSE 83; RESP 18; TEMP 97.5; O2SAT 94
[2017-02-03 00:15] VITALS: BP 140/71; PULSE 85; RESP 19; TEMP 98.7; O2SAT 95
[2017-02-03 04:00] VITALS: BP 169/87; PULSE 83; RESP 18; TEMP 97.5; O2SAT 94
[2017-02-03 08:11] VITALS: BP 175/90; PULSE 85; RESP 20; TEMP 98.2; O2SAT 95
[2017-02-03] MEDS: PANTOPRAZOLE SODIUM 40 MG VIAL IV PUSH SCH (08:22)
[2017-02-03] MEDS: SODIUM CHLORIDE 0.9% FLUSH 10 ML FLUSH IV FLUSH SCH (08:22)
[2017-02-03] MEDS: METOPROLOL SUCCINATE 50 MG EXTENDED RELEASE TAB PO SCH (08:23)
[2017-02-03] MEDS: MULTIVITAMIN TAB PO SCH (08:23)
[2017-02-03 12:38] VITALS: BP 178/91; PULSE 90; RESP 20; TEMP 97.6; O2SAT 94
[2017-02-03 12:46] LABS: ALPHA 1 GLOBULIN 0.31 GM/DL (0.11-0.29); ALPHA 2 GLOBULIN 1.01 GM/DL (0.22-1.00)
[2017-02-03 13:05] LABS: MEAN CORPUSCULAR HEMOGLOBIN 29.2 PG (27.0-34.0); MEAN CORPUSCULAR HGB CONC 31.8 % (32.0-36.0); PLATELET COUNT 373 TH/MM3 (150-450); RED CELL DISTRIBUTION WIDTH 18.7 % (11.6-17.2); REVIEW FLAG FINAL; WHITE BLOOD COUNT 15.8 TH/MM3 (4.0-11.0)
[2017-02-03 13:21] LABS: BICARBONATE 26.7 MEQ/L (21.0-32.0); POTASSIUM 3.9 MEQ/L (3.5-5.1)
[2017-02-03] MEDS ORDERED: OMEP40CA2 PO (14:09)
[2017-02-03] MEDS ORDERED: FURO1TAB62 PO (14:09)
--- NOTE | 2017-02-03 14:09 | HHI.DCPOC ---
Discharge Care Plan Diagnosis: (1) Anemia (2) GI bleed (3) HTN (hypertension) Goals to Promote Your Health * To prevent worsening of your condition and complications * To maintain your health at the optimal level Directions to Meet Your Goals Take your medications as prescribed Follow your dietary instruction Follow activity as directed Keep your appointments as scheduled Take your immunizations and boosters as scheduled If your symptoms worsen call your PCP, if no PCP go to Urgent Care Center or Emergency Room Smoking is Dangerous to Your Health. Avoid second hand smoke Call the 24-hour hour crisis hotline for domestic abuse at Roxane Armendariz MD Feb 03, 2017 14:09
[2017-02-03] MEDS ORDERED: CLON0.1T PO (14:14)
--- NOTE | 2017-02-03 14:16 | HHI.DS ---
Discharge Summary Admission Date Jan 29, 2017 at 19:16 Discharge Date: Feb 03, 2017 Admitting Diagnosis symptomatic anemia, Gi bleed (1) GI bleed ICD Code: K92.2 - Gastrointestinal hemorrhage, unspecified Status: Acute (2) Anemia ICD Code: D64.9 - Anemia, unspecified Status: Acute (3) Hypertensive urgency ICD Code: I16.0 - Hypertensive urgency Diagnosis: Principal Procedures none Brief History - From Admission Written by Betina Salas, acting as scribe for Dr. Lake on 01/29/17 at 21:43. The patient came in because hgb was 5 instead of 12 at independent living facility [facility] and she was instructed to come into ED. + Hemoccult in ED. Patient reports she is very short of breath and has had significant fatigue. She got very dizzy when getting out of the pool (water aerobics) today. All stools are black with green in them; takes OTC iron. Denies abdominal pain. Denies burning with urination or pain with urination. She used to get iron infusions every 2 months previously - she would like to see Dr. Mckeon - she has an outpatient appointment on February 19 as recommended by her PCP Dr. Roberson. Patient was seen by Dr. Ashby for GI bleed in November 2016 and had colonoscopy and panendoscopy. Denies chest pain, red stool, vaginal bleeding, hematuria, not on any blood thinners. She reports sharp pain in hip and right scapula area a couple of times. CBC/BMP: 02/03/17 1240 02/03/17 1240 Significant Findings Laboratory Tests Test 02/01/17 08:47 02/02/17 07:32 02/03/17 12:40 White Blood Count 14.1 TH/MM3 (4.0-11.0) 14.8 TH/MM3 (4.0-11.0) 15.8 TH/MM3 (4.0-11.0) Red Blood Count 3.23 MIL/MM3 (4.00-5.30) 3.12 MIL/MM3 (4.00-5.30) 3.70 MIL/MM3 (4.00-5.30) Hemoglobin 9.3 GM/DL (11.6-15.3) 9.0 GM/DL (11.6-15.3) 10.8 GM/DL (11.6-15.3) Hematocrit 29.1 % (35.0-46.0) 28.2 % (35.0-46.0) 34.0 % (35.0-46.0) Mean Corpuscular Hemoglobin Concent 31.9 % (32.0-36.0) 31.8 % (32.0-36.0) Red Cell Distribution Width 18.9 % (11.6-17.2) 18.5 % (11.6-17.2) 18.7 % (11.6-17.2) Blood Urea Nitrogen 51 MG/DL (7-18) 45 MG/DL (7-18) Creatinine 1.99 MG/DL (0.50-1.00) 1.73 MG/DL (0.50-1.00) Estimat Glomerular Filtration Rate 24 ML/MIN (>89) 28 ML/MIN (>89) Neutrophils (%) (Auto) 80.6 % (16.0-70.0) Lymphocytes (%) (Auto) 7.4 % (9.0-44.0) Monocytes (%) (Auto) 9.1 % (0.0-8.0) Neutrophils # (Auto) 11.9 TH/MM3 (1.8-7.7) Monocytes # (Auto) 1.3 TH/MM3 (0-0.9) Random Glucose 111 MG/DL (74-106) Imaging Last Impressions Abdomen/Pelvis CT 02/02/17 0000 Signed Impressions: Service Date/Time: Thursday, February 02, 2017 16:38 - CONCLUSION: 1. Trace left pleural effusion and left lower lobe atelectasis. 2. No acute abnormality in the abdomen or pelvis. 3. Small atrophic appearing kidneys with bilateral renal cysts and punctate nonobstructing calyceal calculus in the inferior pole of the left kidney, as above. 4. Moderate size hiatal hernia. 5. Mild sigmoid diverticulosis without definitive evidence for diverticulitis. 6. Limited evaluation of the pelvis due to beam hardening artifact from bilateral hip arthroplasties. 7. S-shaped scoliosis of the lumbar spine with associated advanced degenerative spondylosis. Corey Ramon MD Chest X-Ray 01/30/17 1113 Signed Impressions: Service Date/Time: Monday, January 30, 2017 11:23 - CONCLUSION: Probable CHF , however pneumonia is difficult to exclude at this time and followup is recommended. Lauren Santizo MD PE at Discharge GENERAL: in NAD CARDIOVASCULAR: Regular rate and rhythm without murmurs, gallops, or rubs. RESPIRATORY: Clear to auscultation bilaterally. No accessory muscle use. GASTROINTESTINAL: Abdomen soft, non-tender, nondistended. MUSCULOSKELETAL: No cyanosis. Trace lower extremity edema BACK: Nontender without obvious deformity. No CVA tenderness. Pt update on day of discharge Follow-up for GI bleed/anemia Patient stated that she is doing well. She is very anxious to go to home. She stated that she will not stay in the hospital another night. Patient stated that she had no GI bleed. Deny any chest pain, tightness of breathing, palpitation, lightheadedness or dizziness. She stated that being in the hospital is made her very anxious. Dealt with Dr. Ashby stated that patient refusing studies and that she can be discharge. Dealt with patient's nurse and case management. Hospital Course 82 y/o female with a history of GI bleed and anemia who presented to ED following outpatient lab testing showing hemoglobin of 5: Symptomatic Anemia, patient has chronic anemia. History of GI bleed. Questionable due to GI bleed. - On the day of admission patient was found to have Hgb - 5.5/ HCT - 18.1. She was then transfused 2 units packed red blood cells on 01/29 and had respiratory failure. After respiratory failure was treated she was transfuse again to obtain a hemoglobin greater than 10 as recommended by nuclear weapons specialist. Hemoglobin a day of discharge improved and was at 10.8. She had no signs of active bleeding during her hospitalization. -During her hospitalization GI consulted but patient declined procedures at the moment. She later stated to Dr. Mckeon that she will do the Capsule endoscopy as outpatient in one not to any procedures in the hospital. -Patient will have CT scan of the abdomen and pelvis which was reviewed. -Patient has a follow-up appointment with Dr. Mckeon on February 19 in which she can receive outpatient transfusion and will have labs done on that day. Hypertensive urgency -This is more due to anxiety. -Patient was put on her metoprolol and clonidine when necessary. Blood pressure was very labile, in which is supported suspicion for anxiety. Osteoarthritis - PRN Tylenol 650 mg q6h p.o. pain Acute respiratory failure with hypoxia after transfusion -Most likely secondary to being volume overloaded. - BNP mildly elevated. Echo showed an EF of 60-65% with mild left ventricular hypertrophy, moderate to severe pulmonary hypertension, moderate stenosis of the mitral valve. CT scan the pelvis/abdomen showed mild left perfusional day of discharge. -Patient was given Lasix with drastic improvement in her respiratory status in which she was taken off of oxygen. Patient was given oral Lasix on the day of discharge and told to follow-up with her PCP to see if she will also continue with the medication. Chronic Kidney disease, stage IV - contributes to anemia - Continue to monitor. - avoid nephrotoxins Anxiety - Lorazepam 0.5 mg BID PRN for anxiety Pt Condition on Discharge: Stable Discharge Disposition: Discharge Home Discharge Time: > 30 minutes Discharge Instructions DIET: Follow Instructions for: Heart Healthy Diet Activities you can perform: Regular-No Restrictions Follow up Referrals: Gastroenterology - 1 Week with Andressa Ashby MD Oncology - 02/19/17 with Naeem Mckeon MD PCP Follow-up - 1 Week New Medications: Clonidine (Clonidine) 0.1 Mg Tab 0.1 MG PO TID for Blood Pressure Management, #90 TAB 0 Refills Furosemide (Lasix) 20 Mg Tab 20 MG PO DAILY for lower extremity edema, #7 TAB 0 Refills Omeprazole (Omeprazole) 40 Mg Cap 40 MG PO DAILY for GI bleed, #30 CAP 0 Refills Continued Medications: Albuterol 18 GM Inh (Ventolin Hfa 18 GM Inh) 90 Mcg/Act Aer 1 PUFF INH Q6HR PRN for SHORTNESS OF BREATH, #1 INHALER 0 Refills Cholecalciferol (Vitamin D3) Unknown Strength Cap 1 CAP PO DAILY for Nutritional Supplement, #1 BOTTLE 0 Refills Cyanocobalamin Inh (Rapid B-12 Energy Inh) 200 Mcg/Conrath Conrath 1 SPR INH DAILY Lorazepam (Ativan) 0.5 Mg Tab 0.5 MG PO BID, TAB 0 Refills Metoprolol Tartrate (Metoprolol Tartrate) 50 Mg Tab 50 MG PO DAILY, #30 TAB 0 Refills Multiple Vitamin (Multiple Vitamin) 1 Tab 1 TAB PO DAILY for Nutritional Supplement, TAB 0 Refills [place]-3 Fatty Acids (Fish Oil) Unknown Strength Capsule 1 CAP PO DAILY Roxane Armendariz MD Feb 03, 2017 14:16
== END 2017-02-03 15:51 | disposition home or self-care (01) | DRG 377 ==
LOC: NEPE 16:27 → NEDA 19:16 → N05B 22:35
PROVIDERS: ADMIT Family Medicine; ATTEND Family Medicine
PROC: 30233N1 Transfusion of Nonautologous Red Blood Cells into Peripheral Vein, Percutaneous Approach (ICD-10-PCS; principal; 2017-01-29)
DX: K92.2 Gastrointestinal hemorrhage, unspecified (principal); J96.01 Acute respiratory failure with hypoxia; N18.4 Chronic kidney disease, stage 4 (severe); E87.70 Fluid overload, unspecified; E53.8 Deficiency of other specified B group vitamins; D50.9 Iron deficiency anemia, unspecified; K21.9 Gastro-esophageal reflux disease without esophagitis; K22.70 Barrett's esophagus without dysplasia; K64.8 Other hemorrhoids; M19.90 Unspecified osteoarthritis, unspecified site; Z96.643 Presence of artificial hip joint, bilateral; Z96.652 Presence of left artificial knee joint; I16.0 Hypertensive urgency; F41.9 Anxiety disorder, unspecified; G47.33 Obstructive sleep apnea (adult) (pediatric); G89.29 Other chronic pain; M54.5 Low back pain; M48.00 Spinal stenosis, site unspecified; R60.0 Localized edema
CPT/HCPCS: 36430; 36600; 71010; 74176; 76937; 80048; 80053; 82607; 82746; 82784; 82805; 83735; 83880; 83883; 84165; 84443; 85018; 85025; 85027; 85044; 85610; 85730; 86334; 86850; 86900; 86901; 86920; 93306; 94640; C9113; J1100; J1200; J1750; J1940; J7030; J7050; P9016; Q9963